=== PATIENT | female | born 1930 | race Caucasian/White ===

== ENCOUNTER → 2016-11-10 | Outpatient (CLI) | payer OTHER, MEDICARE | LOC: BHFA 14:00 | PROVIDERS: ATTEND Internal Medicine Cardiovascular Disease | DX: I67.9 Cerebrovascular disease, unspecified (principal); I34.0 Nonrheumatic mitral (valve) insufficiency; I50.9 Heart failure, unspecified ==

== ENCOUNTER 2016-11-25 16:00 | Inpatient (IN) | payer OTHER, MEDICARE ==
[~2016-11-25 16:00] MED LIST: IOPAMIDOL (ISOVUE 370) 100 ML BTL IV ONE
--- NOTE | 2016-11-25 17:20 | EDPHY ---
H & P Time Seen by Provider: 11/25/16 16:08 HPI/ROS: HPI Needs admission for carotid artery stenosis. 86-year-old female by private vehicle with daughter. Patient has a history of carotid artery stenosis. She also has a history of a meningioma. I received a call from glass curvature gauger Dr. Nguyen. He informed me that the patient had bilateral 90% stenosis of the carotid arteries and a meningioma causing shift/ masseffect. The patient is to be admitted to the [facility] care plan can be sufficiently coordinated between neuro surgery and vascular surgery. Dr. Murali Matta and neurosurgeon Dr. Dominguez are aware of this patient. ROS: Constitutional: No fever, no chills. No weakness. Eyes: No discharge. No changes in vision. ENT: No sore throat. No nasal congestion or rhinorrhea. Respiratory: No cough. No shortness of breath. Cardiac: No chest pain, no palpitations. Gastrointestinal: No abdominal pain, no vomiting, no diarrhea. Genitourinary: No hematuria. No dysuria or increased frequency with urination. Musculoskeletal: No back pain. No neck pain. No myalgias or arthralgias. Skin: No rashes. Neurological: No headache. No focal weakness or altered sensation. Past medical history: As above and includes cerebral vascular accident November of 2015 with mild residual weakness of the right quadriceps. Social history: She is initially from [place]. She is here with her daughter. [facility]. She ambulates with a walker. Physical Exam: General Appearance: Alert, no distress. This patient is responding to questions appropriately and in full sentences. This patient appears well- hydrated and well-nourished. Eyes: Pupils equal and round no pallor or injection. No lid edema, erythema or injection. Respiratory: There are no retractions, lungs are clear to auscultation with good air movement bilaterally. Cardiovascular: Regular rate and rhythm. No murmur. Gastrointestinal: Abdomen is soft and nontender, no masses, bowel sounds normal. No focal tenderness at McBurney's point. No Rhodes sign. Neurological: Motor sensory function is grossly intact and at baseline. Cranial nerves are normal. Skin: Warm and dry, no rashes. Musculoskeletal: Neck is supple and nontender. Extremities are symmetrical. All joints range without pain or impingement. Psychiatric: No agitation. No depression. Database: EKG: Imaging: Procedures: Emergency department course: 5:00 p.m., I spoke with hospitalist Dr. Payne. He is aware of the patient. He accepts the patient for admission. he has spoken with Dr. Nguyen about this patient. No further emergency department workup or diagnostic evaluation required at this time. 5:10 p.m., spoke with Dr. Oconnor of the Neurosurgery Service. He evaluated the patient in the emergency department. He will follow up with her as an outpatient for further management of her meningioma. 5:15 p.m., spoke with the patient and her daughter. Explained plan for admission and reasoning. All of their questions were answered. She was admitted in stable condition under the care of the hospitalist service. Differential Diagnosis: The differential diagnosis on this patient includes but is not limited to critical stenosis of the bilateral carotid arteries, chronic hemangioma. Acute cerebrovascular accident unlikely. This represents a partial list of diagnoses considered. These considerations are based on history, physical exam, past history, reassessment and diagnostic testing. Smoking Status: Former smoker Constitutional: Initial Vital Signs Temperature (C) 37.7 C 11/25/16 16:15 Heart Rate 76 11/25/16 16:15 Respiratory Rate 18 11/25/16 16:15 Blood Pressure 165/120 H 11/25/16 16:15 O2 Sat (%) 97 11/25/16 16:15 Allergies/Adverse Reactions: No Known Allergies Allergy (Unverified 11/25/16 16:49) Home Medications: Medication Instructions Recorded Acetaminophen [Tylenol ES 500 mg 1,000 mg PO Q8H PRN 11/25/16 (*)] Carvedilol [Carvedilol] 6.25 mg PO BID 11/25/16 Clopidogrel Bisulfate [Plavix (*)] 75 mg PO DAILY 11/25/16 Cyanocobalamin/FA/Pyridoxine 1 each PO DAILY 11/25/16 [Folbee Tablet] Donepezil HCl [Aricept] 10 mg PO HS 11/25/16 Estradiol [Estrace] 0.5 g VG TUFR 11/25/16 Furosemide [Furosemide] 40 mg PO DAILY 11/25/16 Mirtazapine [Remeron] 15 mg PO HS 11/25/16 Paroxetine HCl 30 mg PO DAILY 11/25/16 Potassium Chloride [Klor-Con 10] 10 meq PO DAILY 11/25/16 Pramipexole Di-HCl [Mirapex 0.125 0.125 mg PO HS 11/25/16 mg (*)] Pravastatin Sodium [Pravachol] 80 mg PO HS 11/25/16 Solifenacin Succinate [Vesicare] 10 mg PO DAILY 11/25/16 Departure - Departure Disposition: [facility] Acute Clinical Impression: Carotid artery stenosis, Meningioma
--- NOTE | 2016-11-25 17:40 | CT ---
CT Head With Contrast Indication: Incidentally noted mass on CT angiogram neck. Further evaluation. No priors for comparison. Technique: 5 mm axial images are performed from skull base to vertex without added intravenous contra st. There is contrast enhancement from what was already administered for CT angiogram neck, which was 85 mL of Isovue-370. Radiation dose reduction technique was utilized. Findings: There is a large dural based mass at the left frontotemporal region that measures 6 x 6 x 4 .2 cm, well-circumscribed, with surrounding enhancement. The center of this is also much more dense c ompared to the rest of the brain parenchyma. There is punctate calcification. At the inferior end of it, there is a small cystic lesion with surrounding enhancement that measures 18 mm. Could this repre sent cystic degeneration? Overall, there is no surrounding invasive features such as erosive changes into the skull. There is no stiffness skull thickening. Degeneration or a neoplastic transformation o f this lesion is thought to be less likely based on this imaging finding. There is a [id number] midline shift that measures 8.4 mm. There is a mild amount of surrounding ed tirso. There is increased vasculature along the posterior edge of this mass in the temporal region, chioma t I thought may represent congestion of venous flow. The paranasal sinuses are clear. Impression: 1. Large dural based mass at the left frontotemporal lobe as above described, 6 x 6 x 4.2 cm, with ce ntral calcification and a superior cystic component. Meningioma is primary differential. 2. 8.4 mm [id number] midline shift. 3. Small amount of surrounding edema. Findings were discussed with Dr. Jacob Alvarado. Patient was sent to emergency room at this time.
[2016-11-25] MEDS ORDERED: ACETAMINOPHEN 325 MG TAB PO PRN (18:06)
[2016-11-25] MEDS ORDERED: ONDANSETRON DISINTEGRATING 4 MG TAB PO PRN (18:06)
[2016-11-25] MEDS ORDERED: ONDANSETRON 4 MG/2 ML VIAL IVP PRN (18:06)
--- NOTE | 2016-11-25 18:08 | CT ---
CT Angiography of the Chest Clinical Indications: Known carotid stenosis. Technique: 1.25 mm thin axial images are performed from lung apex through base during intravenous con trast injection of 90 mL of Isovue-370. Coronal and parasagittal reformatted images are reviewed on P Fishidy workstation. Dose reduction techniques were utilized. Comparison: None. Findings: CT Angiogram of the Chest: There is no evidence for acute or chronic pulmonary embolic disease. Centr al pulmonary vasculature demonstrates normal contrast enhancement. No masses. Coronary calcifications , extensive, are present at the circumflex artery, LAD, and to a milder extent right coronary artery. The cardiac chambers are normal in size. There is a small pericardial effusion. CT Scan Chest: Lungs are clear. Heart and mediastinum are normal. There is no evidence for nodule or consolidation. No effusion. Visualized upper abdomen is normal. No adenopathy. There is moderate athe rosclerotic calcification of the visualized abdominal aorta. Impression: 1. Coronary calcifications, moderate. 2. No evidence for pulmonary embolic disease.
--- NOTE | 2016-11-25 18:13 | CT ---
CT Angiography of the Neck (With Contrast) Clinical Indications: Evaluation of carotid stenosis. Technique: During IV administration of 85 mL of Isovue-370 intravenously, helical multidetector data acquisition was obtained from the upper thorax cephalad through the skull base. The thinly collimate d data were manipulated in multiple projections on the 3D computer workstation by the radiologist for a more thorough evaluation. Appropriate images were stored on PACS. Dose reduction techniques were utilized. Findings: There is significant atherosclerotic disease in the visualized abdominal aorta. There is mi ld atherosclerotic disease of the thoracic arch, and proximal descending thoracic aorta. Ascending th oracic aorta is normal in size at 3.6 cm. The great vessels takeoff of aorta normally without anatomic variations. No origin stenosis or athero sclerotic disease. Patient has codominant vertebral arteries, both of which originate from subclavian arteries normally without stenosis. The carotid arteries in the cervical portion are normal until they hit the bifurcation. On the left, there is approximately 90% stenosis of the proximal internal carotid artery. On the right, there is a pproximately 95% stenosis of the proximal internal carotid artery. Both are caused by chunky circumfe rential atherosclerotic calcification. Upstream from that, both internal carotid arteries are tortuous. The right side measures 4 mm. The le ft side measures 5 mm. Cavernous portions of the carotid arteries are within normal limits. Patient has a patent posterior c ommunicating artery on the left, but none is seen on the right. The cervical vertebral arteries are normal without stenosis or dissection. At the skull base, both ar e moderately atherosclerotic, with 80% luminal stenosis focally at the skull base, level of C1. They continue with in-line flow to a normal-sized basilar artery. Impression: 1. 90% right carotid stenosis at the base of the internal carotid artery. 2. 95% left proximal internal carotid artery stenosis. 3. 80% bilateral vertebral artery stenosis at C1. 4. All stenoses are caused by atherosclerotic calcification. 5. Patent P-comm on the left, none on the right. Considering the multifocal stenoses, this patient is at high risk for stroke. Findings were discussed with Dr. Jacob Alvarado. Note: All stenoses are calculated using NASCET Criteria.
--- NOTE | 2016-11-25 18:19 | GCON ---
[f rep st] CONSULTATION ER CONSULTATION NOTE DATE OF CONSULTATION: 11/25/2016 REASON FOR CONSULTATION: Left 7 cm frontal meningioma. HISTORY OF PRESENT ILLNESS: The patient is an 86-year-old woman, who is accompanied by her daughter who is a retired [employer] physician. She recently moved from [place] to [place] and has a known history of a left frontal meningioma, for which she is followed by Neurosurgery in [place], [place]. She also has known history of carotid stenosis. The patient also had some difficulties with CHF and was undergoing a routine echocardiogram of her heart, as well as bilateral carotid evaluation and was found to have increasing stenosis based on a recent ultrasound. She was directed to the emergency department for further evaluation and management. On her imaging studies, she was found to have a 7 cm frontal meningioma on the left side with approximately 1 cm midline shift. A neurosurgical consultation was requested secondary to this new lesion. The patient is currently being admitted to the medical service under the care of Dr. Scott Payne. According to the family, she has not previously been recommended to have any type of surgical intervention for this given her cardiac and carotid history. She recently suffered a TIA/stroke back in November of 2015, from which she has a little bit of residual right-sided quad weakness. She denies any new focal upper or lower extremity weakness. She has been having some increasing difficulty with her memory according to the daughter and some increasing nighttime spasms of the right lower extremity, for which she is on medication. Other than that, she denies any headaches. No new visual symptoms. REVIEW OF SYSTEMS: A complete 10-point review of systems from the patient's intake form reviewed by myself and significant only for those noted above in the HPI. PAST MEDICAL HISTORY: 1. Cerebrovascular accident in November of 2015 with ongoing right-sided residual quadriceps weakness. 2. History of carotid stenosis bilaterally. 3. History of congestive heart failure, for which she is currently being treated medically. 4. History of left frontal meningioma with known midline shift of 3 mm. SOCIAL HISTORY: The patient ambulates with a walker and currently lives in [facility] here in [place]. She is accompanied by her daughter. She originally lived in [place] and recently moved to [place]. FAMILY HISTORY: Significant for a triple A in her mother and bilateral carotid stenosis in her father. SURGICAL HISTORY: She has had bilateral cataract surgery. ALLERGIES: No known drug allergies. MEDICATIONS: 1. Carvedilol 25 mg p.o. b.i.d. 2. Plavix 75 mg p.o. daily. 3. Aricept 5 mg p.o. q.h.s. 4. Mirtazapine 45 mg p.o. daily. 5. Paxil 10 mg p.o. daily. 6. Pravachol 10 mg p.o. daily. 7. VESIcare. 8. CoQ10 200 mg p.o. daily. PHYSICAL EXAMINATION: VITAL SIGNS: Temperature is 37.7, heart rate is 76, respiratory rate is 18, blood pressure is 165/120. She is satting 97% currently on room air. GENERAL: The patient is lying in the bed and she is no acute distress. She is quite pleasant and cooperative with the examination. Affect appears appropriate. HEENT: Head is atraumatic, normocephalic. Pupils are equally round and reactive to light bilaterally. Extraocular movements are intact. Oropharynx is moist. CARDIOVASCULAR AND PULMONARY: Deferred. NEUROLOGIC: She has 5/5 strength with bilateral licensed esthetician strength biceps, triceps, deltoid, left hip flexor, bilateral knee flexion and extension, plantar dorsiflexion, and extensor hallucis longus with 4+ out of 5 right hip flexor. Sensory: She has intact sensation to light touch throughout all major dermatomes of the bilateral upper and lower extremities throughout. Other: She has no Lindsey's, no Babinski, and 1+ reflexes at the bilateral brachioradialis and patellae. Cranial nerves 2-12 are intact. Face is symmetric. Tongue is midline. Tongue protrudes midline. Uvula and palate elevate symmetrically. She has intact sensation to light touch on her face bilaterally. She has intact hearing to light finger scratch bilaterally and shoulder shrug is symmetric. Pupils are equally round and reactive to light bilaterally. MEDICAL DECISION-MAKING: Patient underwent a head CT without contrast, which was reviewed by myself on the [facility] PACS system. There is evidence of a 7 cm left frontal meningioma with approximately 9 mm midline shift from left to right. There are expected diffuse schmitt and white matter changes consistent with an 86-year-old. No skull fractures. No other intracranial abnormalities. ASSESSMENT AND PLAN: This is an 86-year-old woman with a known history of left frontal 7 cm meningioma. I had an extensive discussion with the patient and her daughter. She has a history of congestive heart failure with known greater than 90% critical bilateral carotid stenoses, for which she is going to be seen by Dr. Matta of the Vascular service. The family has not been recommended type of surgical intervention in the past. They report that she has had 3 mm of midline shift in the past; however, my measurement today is 9 mm which did express to the family was somewhat concerning if she has had this much growth in 1 year. At this point, there is no urgent surgical indication; however, given the progressive midline shift I would like to obtain the old outside records and have the patient follow up with me as an outpatient. There is some concern as to whether or not the patient is developing right-sided weakness secondary to the lesion. However, at this point given again, the other medical conditions, which I think are more pressing, we will wait on any type of recommendations for this and do not feel that she requires any type of urgent surgical intervention while she is in the hospital during this admission. Will plan to see the patient in the morning and will likely have her follow up as an outpatient. All of the family's questions were answered in the ER today. This was also discussed with the ER physician and Dr. Matta, who were present. /[id number]/MODL MTDD
[2016-11-25] MEDS ORDERED: oxyCODONE IR 5 MG TAB PO PRN (18:50)
--- NOTE | 2016-11-25 18:55 | PDGENHP ---
History and Physical - Chief Complaint Severe carotid artery stenosis - History of Present Illness PCP: Dr. Guerra Primary dietetic technician registered Dr. Alvarado HPI: 86-year-old female presenting from the Imaging Department after her dietetic technician registered was contacted for severe carotid artery stenosis as well as large left-sided meningioma with midline shift. The patient reports that she experiences chronic paresis located in her right upper and lower extremity, which she has been experiencing after reported CVA in 2005. The symptoms have not recently worsened. She does have some acute hoarseness which she characterizes as focal changes with onset of symptoms on the day of presentation without any associated cough, sore throat, sinus congestion, fever , chills. She does report that she has some associated, chronic pain located in her right knee, exacerbated with ambulation, alleviated with 1000 mg of Tylenol q.8 hours. History Information - Allergies/Home Medication List Allergies/Adverse Reactions: No Known Allergies Allergy (Unverified 11/25/16 16:49) Home Medications: Acetaminophen [Tylenol ES 500 mg (*)] 1,000 mg PO Q8H PRN 11/25/16 [Last Taken Unknown] Carvedilol [Carvedilol] 6.25 mg PO BID 11/25/16 [Last Taken 11/25/16] Clopidogrel Bisulfate [Plavix (*)] 75 mg PO DAILY 11/25/16 [Last Taken 11/25/16] Cyanocobalamin/FA/Pyridoxine [Folbee Tablet] 1 each PO DAILY 11/25/16 [Last Taken Unknown] Donepezil HCl [Aricept] 10 mg PO HS 11/25/16 [Last Taken Unknown] Estradiol [Estrace] 0.5 g [facility] 11/25/16 [Last Taken 11/24/16] Furosemide [Furosemide] 40 mg PO DAILY 11/25/16 [Last Taken 11/25/16] Mirtazapine [Remeron] 15 mg PO HS 11/25/16 [Last Taken Unknown] Paroxetine HCl 30 mg PO DAILY 11/25/16 [Last Taken 11/25/16] Potassium Chloride [Klor-Con 10] 10 meq PO DAILY 11/25/16 [Last Taken 11/25/16] Pramipexole Di-HCl [Mirapex 0.125 mg (*)] 0.125 mg PO HS 11/25/16 [Last Taken Unknown] Pravastatin Sodium [Pravachol] 80 mg PO HS 11/25/16 [Last Taken Unknown] Solifenacin Succinate [Vesicare] 10 mg PO DAILY 11/25/16 [Last Taken Unknown] I have personally reviewed and updated: family history, medical history, social history, surgical history - Past Medical History CVA (Reportedly in 2005 with some right-sided residual paresis) Additional medical history: Frequent PACs. Cognitive impairment. Moderate mitral regurgitation with a normal ejection fraction. Chronic meningioma on the left, evaluated by Neurology and Neurosurgery back in her home city of [place] - Surgical History Reports: no pertinent surgical hx - Family History Additional family history: No recent sick family contacts - Social History Smoking Status: Former smoker Alcohol Use: None Drug Use: None Additional social history: Reports that she is normally ambulatory with use of walker and is able to ambulate without any chest pain or shortness of breath Review of Systems ROS: 10pt was reviewed & negative except for what was stated in HPI & below EENMT: Reports: other (Hoarseness) Muscolosketal: Reports: joint pain (Right knee) Neurological: Reports: weakness (Right side) Physical Exam Temp Pulse Resp BP Pulse Ox 37.4 C 84 18 145/77 H 94 11/25/16 17:55 11/25/16 17:55 11/25/16 17:55 11/25/16 17:55 11/25/16 17:55 Constitutional: no apparent distress, appears nourished, not in pain, No chronically ill appearing Eyes: PERRL, anicteric sclera, EOMI Ears, Nose, Mouth, Throat: moist mucous membranes, hearing normal, ears appear normal, no oral mucosal ulcers Cardiovascular: irregularly irregular, carotid bruit (Bilateral), tachycardia, No systolic murmur, No JVD, No edema Respiratory: no respiratory distress, no rales or rhonchi, clear to auscultation Gastrointestinal: normoactive bowel sounds, soft, non-tender abdomen, no palpable masses Musculoskeletal: other (Tenderness over the right knee without joint effusion, no overt crepitus) Neurologic: AAOx3, sensation intact bilaterally, weakness (Right upper extremity 4/5 motor strength), facial droop (Left mouth pulse), other (Left tongue deviation) Psychiatric: interacting appropriately, not anxious, not encephalopathic, thought process linear, other (Concentration 04/30) Lab Data & Imaging Review Visualized and Interpreted imaging results: Yes Interpretation: Head CT demonstrating 5.8 cm x 6.1 cm left-sided meningioma with midline shift Assessment & Plan Assessment: 86-year-old female presenting with severe bilateral carotid stenosis complicated by large left-sided meningioma with midline shift Plan: 1. Severe carotid stenosis. Acute, new problem this provider, further workup indicated. Discussed with , he has reported to me that the patient has bilateral 90% stenosis and she is undergoing CT angiography today -Dr. Matta has consulted on the patient and given patient's severe bilateral carotid stenosis confirmed on CT angiogram, he would recommend proceeding with CEA, staged with 1 side at a time -per Dr. Matta, patient shall be risk stratified from a cardiovascular standpoint to ensure that she is safe to undergo surgery and she will have a Lexiscan stress test performed in the a.m. -pending patient's stress test results as well as OR schedule for CEA, patient may be able to be discharged home tomorrow with a plan for scheduled end arterectomy surgery versus proceeding urgently to endarterectomy surgery over the next 24-48 hours, please follow up with Dr. Matta in a.m. 2. Meningioma. A large, chronic, evidence of midline shift -consultation by Dr. Oconnor appreciated, he has recommended that patient not undergo surgery for this issue given her high risk of complications as well as chronic nature -outside records ordered and patient's daughter to provide previous head imaging results for comparison -neurosurgery has recommended that the patient follow up with them as an outpatient 3. Tachyarrhythmia. Acute, new problem this provider, further workup indicated. Patient's physical exam reveals irregular heart rhythm with tachycardia, suspicious for atrial fibrillation -patient has a history of PACs -place patient on telemetry, get EKG -continue patient's home dosage of beta-maritza 4. Hoarseness. Acute, unclear etiology, continue to monitor -lozenges p.r.n. Diet. Cardiac, NPO in a.m. Prophylaxis. High risk patient, pharmacologic contraindicated given possible surgery, SCDs Code. Full per patient, her daughter is her MPOA Disposition. Anticipated discharge is 11/26/2016, pending further workup as outlined above. If patient requires urgent cardiovascular surgery, patient will be upgraded to inpatient admission status for such surgery.
[2016-11-25] MEDS ORDERED: CEPACOL LOZENGE PO PRN (19:04)
--- NOTE | 2016-11-25 19:08 | CPEKG ---
Heart Rate: 92 RR Interval: 652 P-R Interval: 144 QRSD Interval: 142 QT Interval: 432 QTC Interval: 535 P [place]: 102 QRS [place]: -51 T Wave [place]: 123 EKG Severity - ABNORMAL ECG - EKG Impression: SINUS RHYTHM EKG Impression: PAIRED VENTRICULAR PREMATURE COMPLEXES EKG Impression: RIGHT BUNDLE BRANCH BLOCK EKG Impression: LVH WITH IVCD AND SECONDARY REPOL ABNRM Electronically Signed By: Kym Padilla 26-Nov-2016 08:42:58
[2016-11-25] MEDS: CARVEDILOL 6.25 MG TAB PO SCH (20:34)
[2016-11-25] MEDS: PRAVASTATIN SODIUM 40 MG TAB PO SCH (20:34)
[2016-11-25] MEDS: DONEPEZIL HCL 5 MG TAB PO SCH (20:35)
[2016-11-25] MEDS: MIRTAZAPINE 15 MG TAB PO SCH (20:35)
--- NOTE | 2016-11-25 20:39 | SOAPPROG ---
KARSTEN Progress Note Assessment/Plan: Assessment: 86 FEMALE WITH SEVERE BILAT CAROTID STENOSES> 90% WITH HX OF PRIOR CVA, MOSTLY RESOLVED ALSO CHRONIC LARGE MENINGIOMA ADMITTED FOR EVAL AND CARDIAC STRESS TEST RISKS AND OPTIONS FULLY DISCUSSED Plan: WILL NEED BILAT CEAs MINERVA AFTER CARDIAC AND MED EVAL 11/25/16 20:36 Objective: Vital Signs Temp Pulse Resp BP Pulse Ox 36.6 C 55 L 17 150/86 H 92 11/25/16 19:28 11/25/16 19:28 11/25/16 19:28 11/25/16 19:28 11/25/16 19:28 ICD10 Worksheet Patient Problems: Problems Problem Status Diagnosed Carotid artery stenosis Acute Meningioma Acute
[2016-11-25] MEDS ORDERED: NON-FORMULARY NEW DRUG (Pravastatin Sodium [Pravachol] 80 MG) PO SCH (21:00)
[2016-11-25] MEDS ORDERED: NON-FORMULARY NEW DRUG (Mirtazapine [Remeron] 15 MG) PO SCH (21:00)
[2016-11-25] MEDS ORDERED: NON-FORMULARY NEW DRUG (Donepezil Hcl [Aricept] 10 MG) PO SCH (21:00)
[2016-11-25] MEDS: PRAMIPEXOLE 0.125 MG TAB PO SCH (21:17)
[2016-11-26 05:29] LABS: % IMMATURE GRANULYOCYTES 0.3 % (0.0-1.1); ABSOLUTE IMMATURE GRANULOCYTES 0.04 10^3/uL (0.00-0.10); ADD DIFF? NO; ADD MORPH? NO; ADD SCAN? NO; ATYPICAL LYMPHOCYTE FLAG 0 (0-99); FRAGMENT RBC FLAG 0 (0-99); HEMATOCRIT 35.4 % (38.0-47.0); LEFT SHIFT FLG 10 (0-99); LIPEMIA HEMOLYSIS FLAG 90 (0-99); MEAN CELL HEMOGLOBIN CONCENTR. 33.9 g/dL (32.4-36.7); MEAN CELL VOLUME 94.4 fL (81.5-99.8); MEAN PLATELET VOLUME 11.4 fL (8.7-11.7); PLATELET CLUMPS FLAG 10 (0-99); PLATELET COUNT 255 10^3/uL (150-400); RED BLOOD CELL COUNT 3.75 10^6/uL (4.18-5.33); RED CELL DISTRIBUTION WIDTH 13.9 % (11.5-15.2)
[2016-11-26 05:41] LABS: INR 1.13 (0.83-1.16); PROTIME(PATIENT) 14.4 SEC (12.0-15.0)
[2016-11-26 05:56] LABS: ANION GAP 10 mEq/L (8-16); CARBON DIOXIDE 22 mEq/l (22-31); CHLORIDE 107 mEq/L (97-110); CREATININE 0.8 mg/dL (0.6-1.0); GLOMERULAR FILTRATION RATE > 60; GLUCOSE 105 mg/dL (70-100); SODIUM 139 mEq/L (134-144)
[2016-11-26] MEDS ORDERED: NON-FORMULARY NEW DRUG (Solifenacin Succinate [Vesicare] 10 MG) PO SCH (09:00)
[2016-11-26] MEDS ORDERED: [UNRECOGNIZED DRUG - OTHER] PO SCH (09:00)
[2016-11-26] MEDS ORDERED: CYANOCOBALAMIN PO SCH (09:00)
[2016-11-26] MEDS ORDERED: PYRIDOXINE PO SCH (09:00)
[2016-11-26] MEDS ORDERED: REGADENOSON 0.4 MG/5 ML SYR IVP ONE (09:15)
--- NOTE | 2016-11-26 10:16 | SOAPPROG ---
SOAP Progress Note Assessment/Plan: Assessment: 86yo with B/L carotid stenosis awake alert Plan: seen by Dr Matta surgery in next 1-2 days when cleared by Cards, medicine and schedule permits, discussed with patient 11/26/16 10:15 Objective: Vital Signs Temp Pulse Resp BP Pulse Ox 37.1 C 89 20 109/60 91 L 11/26/16 07:44 11/26/16 07:44 11/26/16 07:44 11/26/16 07:44 11/26/16 07:44 Laboratory Results 11/26/16 04:20 11/26/16 04:20 11/25/16 11/26/16 11/27/16 05:59 05:59 05:59 Intake Total 300 Balance 300 PT 14.4 SEC (12.0-15.0) 11/26/16 04:20 INR 1.13 (0.83-1.16) 11/26/16 04:20 ICD10 Worksheet Patient Problems: Problems Problem Status Diagnosed Carotid artery stenosis Acute Meningioma Acute
--- NOTE | 2016-11-26 10:23 | NEUSURGPN ---
Assessment/Plan: 87F with multiple medical comorbidities including carotid stenosis, CHF with a large 7cm meningioma with midline shift. -Recommend patient follow up with neurosurgery as an outpatient in 2-3weeks -Continue Q4 hour neuro checks while in house. -Please notify NS with any change in neuro/motor exam Subjective: Denies any headache, nausea, dizziness Objective: NAD A&Ox3 CN II-XII grossly intact. EOMI. MAEx4 / and equal in BUE and BLE - Physician Discussed Patient with : [facility] Physical Exam - Vitals, I&O, Labs I and O 11/25/16 11/26/16 11/27/16 05:59 05:59 05:59 Intake Total 300 Balance 300 Weight 67.3 kg Intake: Oral (ml) 300 Other: Intake Quantity Yes Sufficient Number of Voids Toilet 2 Vital Signs Temp Pulse Resp BP Pulse Ox 37.1 C 89 20 109/60 91 L 11/26/16 07:44 11/26/16 07:44 11/26/16 07:44 11/26/16 07:44 11/26/16 07:44 Laboratory Results 11/26/16 04:20 11/26/16 04:20 ICD10 Worksheet Patient Problems: Problems Problem Status Diagnosed Carotid artery stenosis Acute Meningioma Acute
[2016-11-26] MEDS: ACETAMINOPHEN 500 MG TAB PO PRN (10:44)
[2016-11-26] MEDS: CYANOCOBALAMIN/FA/PYRIDOXINE 1 EACH TAB PO SCH (10:45)
[2016-11-26] MEDS: SOLIFENACIN SUCCINATE 5 MG TAB PO SCH (10:45)
[2016-11-26] MEDS: CARVEDILOL 6.25 MG TAB PO SCH ×2 (10:46→19:37)
--- NOTE | 2016-11-26 10:47 | NM ---
Nuclear Medicine Myocardial Perfusion Scan Clinical History: 86-year-old female with a history of carotid stenosis, anticipating surgery. Evalua te for myocardial ischemia Radiopharmaceutical: 10.8 mCi of IV technetium 99m sestamibi (rest); 24.4 mCi of IV sestamibi (stress ). Medical Pharmaceutical: 0.4 mg of IV Lexiscan. Technique: After the respective rest and stress sequences, images were acquired tomographically and r econstructed along the standard cardiac axes. An attempt was made to gate this study, however the jeb ority the beats were rejected and a true gating study was therefore not acquired. Images are reviewed on the PACS system using [employer] [facility] software. Comparison Study: None. Findings: The post-stress sequences demonstrate relatively homogeneous perfusion of the left ventricl e, with no reversible filling defect to suggest ischemia, or fixed filling defect to suggest fibrosis . The left ventricular cavity size is normal. The study was not gated, and a computer-generated LVEF was not calculated. Impression: There is no scintigraphic evidence of myocardial ischemia.
--- NOTE | 2016-11-26 13:27 | CPR ---
[f rep st] NONINVASIVE CARDIAC PROCEDURE REPORT DATE OF PROCEDURE: 11/26/2016 PROCEDURE: Lexiscan nuclear stress test. INDICATION: The patient has multiple atrial and ventricular ectopy. This stress test was ordered fo r preop clearance. DESCRIPTION OF PROCEDURE: Consent was obtained and the patient was placed on continuous telemetry. Her resting EKG revealed normal sinus rhythm with ventricular bigeminy. 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 The patient was infused with Lexiscan and complained o f flushing and abdominal discomfort. Her atrial and ventricular ectopy increased with the infusion. She had multiple ventricular couplets as well as atrial runs throughout the study. Her blood pressu re at rest was 138/60 and it decreased with the infusion. Three minutes into the recovery her blood pressure had recovered. Her symptoms of abdominal discomfort improved within 3 minutes of recovery. PLAN: Await nuclear images. /[id number]/MODL
--- NOTE | 2016-11-26 13:57 | PDCARPN ---
Cardiology Progress Note Assessment/Plan: 86-year-old female followed by Dr. Alvarado in our group. Has bilateral carotid disease. Admitted to the hospital after a CT angiogram demonstrated critical stenoses bilaterally. Surgical consultation obtained. Has a history of hypertension, moderate mitral regurgitation, and chronic diastolic CHF but no history of CAD or myocardial infarction. Underwent a pharmacologic nuclear stress test earlier today. Nuclear perfusion images were normal without evidence for ischemia or infarction. At this point it appears that there is no evidence for significantly increased risk of major adverse perioperative cardiac event. She demonstrates frequent PACs on telemetry. Would monitor closely for postoperative atrial fibrillation which would not be surprising. 11/26/16 13:54 Subjective: No complaints. Objective: Vital Signs (8 Hrs) Temp Pulse Resp BP Pulse Ox 11/26/16 12:45 36.9 C 80 14 126/87 H 92 11/26/16 10:46 89 109/60 11/26/16 07:44 37.1 C 89 20 109/60 91 L Intake/Output (24 Hrs) 11/25/16 11/26/16 11/27/16 05:59 05:59 05:59 Intake Total 300 Balance 300 Intake: Oral (ml) 300 Other: Weight 67.3 kg Intake Quantity Yes Sufficient Number of Voids Toilet 2 Result Diagrams: 11/26/16 04:20 11/26/16 04:20 - Physical Exam Constitutional: no apparent distress Eyes: anicteric sclera Ears, Nose, Mouth, Throat: moist mucous membranes Cardiovascular: regular rate and rhythm Respiratory: clear to auscultate bilat Gastrointestinal: normoactive bowel sounds, no tenderness, no masses Skin: no rashes, no edema Psychiatric: not anxious ICD10 Worksheet Patient Problems: Problems Problem Status Diagnosed Carotid artery stenosis Acute Meningioma Acute
--- NOTE | 2016-11-26 15:20 | HOSPPROG ---
Hospitalist Progress Note Assessment/Plan: # Severe carotid stenosis- Acute- CTA (personally reviewed and interpreted) shows bilateral 90% stenosis - cardic stress test ordered for today - plan for bilateral CEA # Meningioma- chronic A large, chronic, evidence of more dramatic midline shift -consultation by Dr. Oconnor appreciated - patient and family not interested in any interventions # Tachyarrhythmia- Acute TELE (personally reviewed and interpreted) sinus with PAC's- creatinine and potassium normal oxygen saturations 95% on RA -cont telemetry -continue patient's home dosage of beta-maritza # Diet. Cardiac # Prophylaxis. High risk patient, pharmacologic contraindicated given possible surgery, SCDs #Code. Full per patient, her daughter is her MPOA # disposition - > 2MN as pt requires work up for anticipated surgical intervention I have discussed the case with surgery - pending results of stress test anticipate surgery in the next 48 hours Subjective: denies chest pain Objective: Vital Signs Temp Pulse Resp BP Pulse Ox 36.9 C 80 14 126/87 H 92 11/26/16 12:45 11/26/16 12:45 11/26/16 12:45 11/26/16 12:45 11/26/16 12:45 Laboratory Results 11/26/16 04:20 11/26/16 04:20 11/25/16 11/26/16 11/27/16 05:59 05:59 05:59 Intake Total 300 Balance 300 PT 14.4 SEC (12.0-15.0) 11/26/16 04:20 INR 1.13 (0.83-1.16) 11/26/16 04:20 - Physical Exam Constitutional: chronically ill appearing Eyes: anicteric sclera Ears, Nose, Mouth, Throat: moist mucous membranes Cardiovascular: regular rate and rhythym, systolic murmur Respiratory: no respiratory distress Gastrointestinal: normoactive bowel sounds, soft, non-tender abdomen Genitourinary: no bladder fullness Skin: warm, normal color Musculoskeletal: No asymmetric calves Neurologic: AAOx3, facial droop Psychiatric: interacting appropriately, not anxious Lymph, Heme, Immunologic: no cervical LAD ICD10 Worksheet Patient Problems: Problems Problem Status Diagnosed Carotid artery stenosis Acute Meningioma Acute
--- NOTE | 2016-11-26 19:16 | SOAPPROG ---
SOAP Progress Note Assessment/Plan: Assessment: 86yo with B/L carotid stenosis awake alert Plan: seen by Dr Matta surgery in next 1-2 days when cleared by Cards, medicine and schedule permits, discussed with patient 11/26/16 10:15 11/26/16 19:16 Surgery planned for Wednesday morning if cleared by medicine, CARDS. Objective: Vital Signs Temp Pulse Resp BP Pulse Ox 37.1 C 55 L 20 102/44 L 91 L 11/26/16 15:57 11/26/16 15:57 11/26/16 15:57 11/26/16 15:57 11/26/16 15:57 11/25/16 11/26/16 11/27/16 05:59 05:59 05:59 Intake Total 650 Balance 650 PT 14.4 SEC (12.0-15.0) 11/26/16 04:20 INR 1.13 (0.83-1.16) 11/26/16 04:20 ICD10 Worksheet Patient Problems: Problems Problem Status Diagnosed Carotid artery stenosis Acute Meningioma Acute
[2016-11-26] MEDS: MIRTAZAPINE 15 MG TAB PO SCH (19:37)
[2016-11-26] MEDS: DONEPEZIL HCL 5 MG TAB PO SCH (19:37)
[2016-11-26] MEDS: PRAMIPEXOLE 0.125 MG TAB PO SCH (19:38)
[2016-11-26] MEDS: PRAVASTATIN SODIUM 40 MG TAB PO SCH (19:38)
[2016-11-27] MEDS: SOLIFENACIN SUCCINATE 5 MG TAB PO SCH (10:34)
[2016-11-27] MEDS: CYANOCOBALAMIN/FA/PYRIDOXINE 1 EACH TAB PO SCH (10:35)
[2016-11-27] MEDS: ACETAMINOPHEN 500 MG TAB PO PRN (10:35)
[2016-11-27] MEDS: CARVEDILOL 6.25 MG TAB PO SCH ×2 (10:36→22:04)
--- NOTE | 2016-11-27 13:13 | HOSPPROG ---
Hospitalist Progress Note Assessment/Plan: # Severe carotid stenosis- Acute- CTA - shows bilateral 90% stenosis CT chest ( personally reviewed and interpreted) no infiltrates cardiac calcifications noted by Radiology myocardial perfusion scan( reviewed) no inducible ischemia - plan for bilateral CEA - 1st phase tomorrow morning - NPO for OR # Meningioma- chronic A large, chronic, evidence of more dramatic midline shift -consultation by Dr. Oconnor appreciated - patient and family not interested in any interventions # Tachyarrhythmia- Acute TELE (personally reviewed and interpreted) sinus with PAC's- creatinine and potassium normal oxygen saturations 91% on RA -cont telemetry -continue patient's home dosage of beta-maritza # history of CVA with remnant deficits- continue holding Plavix for OR tomorrow # Diet. Cardiac- NPO after midnight # Prophylaxis. High risk patient, pharmacologic contraindicated given possible surgery, SCDs #Code. Full per patient, her daughter is her MPOA # disposition - > 2MN as pt requires work up for anticipated surgical intervention I have discussed the case with Dr. Matta- plan for operating room tomorrow morning for 1st carotid intervention Subjective: denies chest pain Objective: Vital Signs Temp Pulse Resp BP Pulse Ox 38.0 C 89 19 125/70 H 91 L 11/27/16 11:42 11/27/16 11:42 11/27/16 11:42 11/27/16 11:42 11/27/16 11:42 11/26/16 11/27/16 11/28/16 05:59 05:59 05:59 Intake Total 850 Balance 850 PT 14.4 SEC (12.0-15.0) 11/26/16 04:20 INR 1.13 (0.83-1.16) 11/26/16 04:20 - Physical Exam Constitutional: chronically ill appearing Eyes: anicteric sclera Ears, Nose, Mouth, Throat: moist mucous membranes Cardiovascular: regular rate and rhythym, systolic murmur Respiratory: no respiratory distress, no rales or rhonchi Gastrointestinal: normoactive bowel sounds, soft, non-tender abdomen Genitourinary: No no bladder fullness Skin: warm, normal color Musculoskeletal: No asymmetric calves Neurologic: AAOx3, facial droop Psychiatric: interacting appropriately, not anxious Lymph, Heme, Immunologic: no cervical LAD ICD10 Worksheet Patient Problems: Problems Problem Status Diagnosed Carotid artery stenosis Acute Meningioma Acute
[2016-11-27] MEDS ORDERED: Herbals/Supplements -Info Only PO SCH (15:00)
[2016-11-27] MEDS ORDERED: UBIQUINOL 100 MG PO SCH (15:00)
--- NOTE | 2016-11-27 15:03 | SOAPPROG ---
SOAP Progress Note Assessment/Plan: Assessment: 86yo with B/L carotid stenosis awake alert Plan: seen by Dr Matta surgery in next 1-2 days when cleared by Cards, medicine and schedule permits, discussed with patient 11/26/16 10:15 11/26/16 19:16 Surgery planned for Wednesday morning if cleared by medicine, CARDS. 11/27/16 15:[address] Matta in AM. Surgery planned for Wednesday consent in chart NPO tonight antibiotics ordered will discuss with daughter who is welcome to phone me, will stop by if time permits. Objective: Vital Signs Temp Pulse Resp BP Pulse Ox 38.0 C 89 19 125/70 H 91 L 11/27/16 11:42 11/27/16 11:42 11/27/16 11:42 11/27/16 11:42 11/27/16 11:42 11/26/16 11/27/16 11/28/16 05:59 05:59 05:59 Intake Total 850 Balance 850 PT 14.4 SEC (12.0-15.0) 11/26/16 04:20 INR 1.13 (0.83-1.16) 11/26/16 04:20 ICD10 Worksheet Patient Problems: Problems Problem Status Diagnosed Carotid artery stenosis Acute Meningioma Acute
[2016-11-27] MEDS: UBIQUINOL 100 MG PO SCH (17:38)
[2016-11-27] MEDS: PRAMIPEXOLE 0.125 MG TAB PO SCH (22:03)
[2016-11-27] MEDS: DONEPEZIL HCL 5 MG TAB PO SCH (22:04)
[2016-11-27] MEDS: MIRTAZAPINE 15 MG TAB PO SCH (22:04)
[2016-11-27] MEDS: PRAVASTATIN SODIUM 40 MG TAB PO SCH (22:04)
[2016-11-28] MEDS ORDERED: SKIN ADHESIVE (DERMABOND) 1 EACH TP ONE (07:45)
[2016-11-28] MEDS ORDERED: THROMBIN (RECOMBINANT) 20,000 UNIT SPRAY TP ONE (07:45)
[2016-11-28] MEDS ORDERED: BUPIVACAINE 0.5% 30 ML SDV ONE (07:46)
[2016-11-28] MEDS ORDERED: PROTAMINE SULFATE 50 MG/5 ML VIAL IVP ONE (07:46)
[2016-11-28] MEDS ORDERED: ceFAZolin 2 GM/DEXTROSE 100 ML IV ONE (08:00)
[2016-11-28] MEDS ORDERED: CEFAZOLIN 2 GM/DEXTROSE/100 ML BAG IV ONE (08:17)
--- NOTE | 2016-11-28 08:39 | SOAPPROG ---
KARSTEN Progress Note Assessment/Plan: Assessment: 86 FEMALE WITH SEVERE BILAT CAROTID STENOSES> 90% WITH HX OF PRIOR CVA, MOSTLY RESOLVED ALSO CHRONIC LARGE MENINGIOMA ADMITTED FOR EVAL AND CARDIAC STRESS TEST RISKS AND OPTIONS FULLY DISCUSSED Plan: WILL NEED BILAT CEAs MINERVA AFTER CARDIAC AND MED EVAL 11/25/16 20:36 11/28/16 08:37 SURGICAL RISKS AND OPTIONS FULLY DISCUSSED AND SHE AND DAUGHTER WISH TO PROCEED / WE WILL START WITH LEFT SIDE Objective: Vital Signs Temp Pulse Resp BP Pulse Ox 37.2 C 83 18 139/53 H 96 11/28/16 04:00 11/28/16 04:00 11/28/16 04:00 11/28/16 04:00 11/28/16 04:00 11/27/16 11/28/16 11/29/16 05:59 05:59 05:59 Intake Total 850 1200 Balance 850 1200 PT 14.4 SEC (12.0-15.0) 11/26/16 04:20 INR 1.13 (0.83-1.16) 11/26/16 04:20 ICD10 Worksheet Patient Problems: Problems Problem Status Diagnosed Carotid artery stenosis Acute Meningioma Acute
[2016-11-28] MEDS ORDERED: MIDAZOLAM 2 MG/2 ML VIAL ONE (10:06)
[2016-11-28] MEDS ORDERED: GLYCOPYRROLATE 0.2 MG/1 ML VIAL ONE (10:07)
[2016-11-28] MEDS ORDERED: ROCURONIUM 50 MG/5 ML VIAL ONE (10:08)
[2016-11-28] MEDS ORDERED: LIDOCAINE 2% 5 ML SDV ONE ×2 (10:08→10:13)
[2016-11-28] MEDS ORDERED: PROPOFOL 200 MG/20 ML VIAL ONE (10:09)
[2016-11-28] MEDS ORDERED: fentaNYL 100 MCG/2 ML INJ ONE (10:09)
[2016-11-28] MEDS ORDERED: LIDOCAINE 2% 100 MG/5 ML SYR IVP ONE (10:10)
[2016-11-28] MEDS ORDERED: HEPARIN 10,000 UNIT/10 ML MDV ONE (10:11)
[2016-11-28] MEDS ORDERED: PROPOFOL/EMULSION 500 MG/50 ML BOTTLE IV ONE (11:00)
[2016-11-28] MEDS ORDERED: REMIFENTANIL HCL 1 MG VIAL ONE (11:00)
[2016-11-28] MEDS ORDERED: PHENYLEPHRINE HCL 100 MCG/ML SYR ONE (11:22)
[2016-11-28] MEDS ORDERED: SUGAMMADEX SODIUM 200 MG/2 ML VIAL IVP ONE (11:51)
[2016-11-28] MEDS ORDERED: DEXAMETHASONE 4 MG/ML VIAL ONE ×2 (12:00)
--- NOTE | 2016-11-28 12:10 | POSTOPPROG ---
Post Op Note Date of Operation: 11/28/16 Surgeon: Yang Matta Surgical Services Manager: teagan gomez Anesthesiologist: lena Anesthesia: GET(General Endotracheal) Pre-op Diagnosis: critical left carotid stenosis with hx of cva Post-op Diagnosis: same Indication: increased stenosis Procedure: left carotid enderterectomy with eeg Findings: localized calcified 95% stenosis Inf/Abcess present in the surg proc area at time of surgery?: No Depth: Organ Space EBL: 50-100 Complications: 0 Specimen(s): plaque
[2016-11-28] MEDS ORDERED: HYDROCODONE/APAP 5/325 TAB PO PRN (12:14)
[2016-11-28] MEDS ORDERED: HYDROmorphONE/DILAUDID 1 MG/ML SYR IVP PRN (12:14)
[2016-11-28] MEDS ORDERED: ONDANSETRON 4 MG/2 ML VIAL IVP PRN (12:14)
[2016-11-28] MEDS: D5W 1/2 NS W/ 20 KCl/L 1,000 ML IV SCH (13:00)
[2016-11-28] MEDS: CARVEDILOL 6.25 MG TAB PO SCH ×2 (13:00→20:07)
[2016-11-28] MEDS: UBIQUINOL 100 MG PO SCH (13:01)
[2016-11-28] MEDS: CYANOCOBALAMIN/FA/PYRIDOXINE 1 EACH TAB PO SCH (13:01)
--- NOTE | 2016-11-28 13:22 | HOSPPROG ---
Hospitalist Progress Note Assessment/Plan: # Severe carotid stenosis- Acute- CTA - shows bilateral 90% stenosis CT chest (personally reviewed and interpreted) no infiltrates cardiac calcifications noted by Radiology myocardial perfusion scan (reviewed) no inducible ischemia - plan for left CEA today - NPO for OR - receiving perioperative antibiotics # Meningioma- chronic A large, chronic, evidence of more dramatic midline shift -consultation by Dr. Oconnor appreciated - patient and family not interested in any interventions # Tachyarrhythmia- Acute TELE (personally reviewed and interpreted) sinus with PAC's in 70's- creatinine and potassium normal oxygen saturations 96% on 3L -cont telemetry -continue patient's home dosage of beta-maritza # history of CVA with remnant deficits- continue holding Plavix for OR # Diet. Cardiac- NPO # Prophylaxis. High risk patient, pharmacologic contraindicated given possible surgery, SCDs #Code. Full per patient, her daughter is her MPOA # disposition - > 2MN as pt requires surgical intervention for carotid stenosis I have discussed the case with Dr. Matta- plan for operating room this morning Subjective: no events overnight Objective: Vital Signs Temp Pulse Resp BP Pulse Ox 37.1 C 71 19 103/46 L 94 11/28/16 12:47 11/28/16 13:00 11/28/16 13:00 11/28/16 13:00 11/28/16 13:00 11/27/16 11/28/16 11/29/16 05:59 05:59 05:59 Intake Total 850 1200 1000 Output Total 100 Balance 850 1200 900 PT 14.4 SEC (12.0-15.0) 11/26/16 04:20 INR 1.13 (0.83-1.16) 11/26/16 04:20 - Physical Exam Constitutional: chronically ill appearing Eyes: anicteric sclera Ears, Nose, Mouth, Throat: moist mucous membranes Cardiovascular: regular rate and rhythym, systolic murmur Respiratory: no respiratory distress, no rales or rhonchi Gastrointestinal: normoactive bowel sounds, soft, non-tender abdomen Genitourinary: no bladder fullness Skin: warm, normal color Musculoskeletal: No asymmetric calves Neurologic: AAOx3 Psychiatric: interacting appropriately Lymph, Heme, Immunologic: no cervical LAD ICD10 Worksheet Patient Problems: Problems Problem Status Diagnosed Carotid artery stenosis Acute Meningioma Acute
[2016-11-28] MEDS ORDERED: NS 500 ML IV ONE (14:00)
[2016-11-28] MEDS: SOLIFENACIN SUCCINATE 5 MG TAB PO SCH (14:14)
[2016-11-28] MEDS ORDERED: ALBUMIN 5% 500 ML IV ONE ×2 (15:00→16:30)
--- NOTE | 2016-11-28 17:11 | SOAPPROG ---
SOAP Progress Note Assessment/Plan: Assessment: 86 FEMALE WITH SEVERE BILAT CAROTID STENOSES> 90% WITH HX OF PRIOR CVA, MOSTLY RESOLVED ALSO CHRONIC LARGE MENINGIOMA ADMITTED FOR EVAL AND CARDIAC STRESS TEST RISKS AND OPTIONS FULLY DISCUSSED Plan: WILL NEED BILAT CEAs MINERVA AFTER CARDIAC AND MED EVAL 11/25/16 20:36 11/28/16 08:37 SURGICAL RISKS AND OPTIONS FULLY DISCUSSED AND SHE AND DAUGHTER WISH TO PROCEED / WE WILL START WITH LEFT SIDE 11/28/16 17:07 postop sleepy but oriented. Neuro exam intact. Wound is a clean and dry Objective: Vital Signs Temp Pulse Resp BP Pulse Ox 37.1 C 79 22 H 108/47 L 96 11/28/16 16:00 11/28/16 17:00 11/28/16 17:00 11/28/16 17:00 11/28/16 17:00 11/27/16 11/28/16 11/29/16 05:59 05:59 05:59 Intake Total 850 1200 2100 Output Total 200 Balance 850 1200 1900 PT 14.4 SEC (12.0-15.0) 11/26/16 04:20 INR 1.13 (0.83-1.16) 11/26/16 04:20 ICD10 Worksheet Patient Problems: Problems Problem Status Diagnosed Carotid artery stenosis Acute Meningioma Acute
[2016-11-28] MEDS: DONEPEZIL HCL 5 MG TAB PO SCH (21:16)
[2016-11-28] MEDS: MIRTAZAPINE 15 MG TAB PO SCH (21:16)
[2016-11-28] MEDS: PRAVASTATIN SODIUM 40 MG TAB PO SCH (21:16)
[2016-11-28] MEDS: PRAMIPEXOLE 0.125 MG TAB PO SCH (21:16)
[2016-11-29] MEDS: D5W 1/2 NS W/ 20 KCl/L 1,000 ML IV SCH (02:46)
[2016-11-29 06:20] LABS: % IMMATURE GRANULYOCYTES 0.6 % (0.0-1.1); ABSOLUTE IMMATURE GRANULOCYTES 0.07 10^3/uL (0.00-0.10); ADD DIFF? NO; ADD MORPH? NO; ADD SCAN? NO; ATYPICAL LYMPHOCYTE FLAG 20 (0-99); FRAGMENT RBC FLAG 0 (0-99); HEMATOCRIT 29.2 % (38.0-47.0); HEMOGLOBIN 9.8 g/dL (12.6-16.3); LEFT SHIFT FLG 50 (0-99); LIPEMIA HEMOLYSIS FLAG 80 (0-99); MEAN CELL HEMOGLOBIN 32.5 pg (27.9-34.1); MEAN CELL HEMOGLOBIN CONCENTR. 33.6 g/dL (32.4-36.7); MEAN CELL VOLUME 96.7 fL (81.5-99.8); MEAN PLATELET VOLUME 11.8 fL (8.7-11.7); PLATELET CLUMPS FLAG 0 (0-99); PLATELET COUNT 202 10^3/uL (150-400); RED BLOOD CELL COUNT 3.02 10^6/uL (4.18-5.33); RED CELL DISTRIBUTION WIDTH 13.6 % (11.5-15.2)
[2016-11-29 06:34] LABS: ANION GAP 12 mEq/L (8-16); CARBON DIOXIDE 19 mEq/l (22-31); CHLORIDE 108 mEq/L (97-110); CREATININE 0.6 mg/dL (0.6-1.0); GLOMERULAR FILTRATION RATE > 60; GLUCOSE 157 mg/dL (70-100); POTASSIUM 4.2 mEq/L (3.5-5.2); SODIUM 139 mEq/L (134-144)
[2016-11-29] MEDS: CYANOCOBALAMIN/FA/PYRIDOXINE 1 EACH TAB PO SCH (09:11)
[2016-11-29] MEDS: CARVEDILOL 6.25 MG TAB PO SCH ×2 (09:11→20:24)
[2016-11-29] MEDS: SOLIFENACIN SUCCINATE 5 MG TAB PO SCH (09:11)
[2016-11-29] MEDS: UBIQUINOL 100 MG PO SCH ×2 (09:12→12:17)
--- NOTE | 2016-11-29 09:43 | SOAPPROG ---
SOAP Progress Note Assessment/Plan: Assessment: 86 FEMALE WITH SEVERE BILAT CAROTID STENOSES> 90% WITH HX OF PRIOR CVA, MOSTLY RESOLVED ALSO CHRONIC LARGE MENINGIOMA ADMITTED FOR EVAL AND CARDIAC STRESS TEST RISKS AND OPTIONS FULLY DISCUSSED Plan: WILL NEED BILAT CEAs MINERVA AFTER CARDIAC AND MED EVAL 11/25/16 20:36 11/28/16 08:37 SURGICAL RISKS AND OPTIONS FULLY DISCUSSED AND SHE AND DAUGHTER WISH TO PROCEED / WE WILL START WITH LEFT SIDE 11/28/16 17:07 postop sleepy but oriented. Neuro exam intact. Wound is a clean and dry 11/29/16 09:42 VITAL SIGNS GREAT. NEURO EXAM GOOD. WOUND OKAY. PROGRESSING NICELY. HOPEFULLY HOME IN THE MORNING. PLAN IS ADVANCED DIET SHE ALSO HAS A COUGH WHICH IS PRODUCTIVE. WILL ORDER CHEST X-RAY Objective: Vital Signs Temp Pulse Resp BP Pulse Ox 36.4 C 62 14 130/69 H 96 11/29/16 07:53 11/29/16 07:53 11/29/16 07:53 11/29/16 07:53 11/29/16 07:53 Laboratory Results 11/29/16 05:23 11/29/16 05:23 11/28/16 11/29/16 11/30/16 05:59 05:59 05:59 Intake Total 1200 4145 Output Total 1150 Balance 1200 2995 PT 14.4 SEC (12.0-15.0) 11/26/16 04:20 INR 1.13 (0.83-1.16) 11/26/16 04:20 ICD10 Worksheet Patient Problems: Problems Problem Status Diagnosed Carotid artery stenosis Acute Meningioma Acute
--- NOTE | 2016-11-29 11:08 | HOSPPROG ---
Hospitalist Progress Note Assessment/Plan: 86 yo female, s/p left carotid endartectomy 2/3, now with cough intemittent; no c/oi chest pain, SOB; patient new to me today # Severe carotid stenosis- s/p endartectomy; POD #1 #cough: CT chest (personally reviewed and interpreted) no infiltrates cardiac calcifications noted by Radiology myocardial perfusion scan (reviewed) no inducible ischemia will get CXR today; order anio jocelynn; ana; # Meningioma- chronic A large, chronic, evidence of more dramatic midline shift -consultation by Dr. Oconnor appreciated - patient and family not interested in any interventions # Tachyarrhythmia- on admision; post op in NSR at 70-80's # history of CVA with remnant deficits- continue holding Plavix for OR # Diet. Cardiac regular # Prophylaxis. High risk patient, pharmacologic contraindicated given possible surgery, SCDs #Code. Full per patient, her daughter is her MPOA # day to day currently; she does not use O2 at home; possible DC 2/6 if improved with cough, and CXR is clear; following with surgery Subjective: having intermittent cough; c/o some neck pain. Objective: Vital Signs Temp Pulse Resp BP Pulse Ox 36.4 C 62 14 130/69 H 96 11/29/16 07:53 11/29/16 07:53 11/29/16 07:53 11/29/16 07:53 11/29/16 07:53 Laboratory Results 11/29/16 05:23 11/29/16 05:23 11/28/16 11/29/16 11/30/16 05:59 05:59 05:59 Intake Total 1200 4145 Output Total 1150 Balance 1200 2995 PT 14.4 SEC (12.0-15.0) 11/26/16 04:20 INR 1.13 (0.83-1.16) 11/26/16 04:20 - Time Spent With Patient Time Spent with Patient: greater than 35 minutes Time Spent with Patient: Greater than 35 minutes spent on this patients care, greater than 50% of time spent counseling, educating, and coordinating care regarding the above mentioned plan. - Pending Discharge Pending Discharge Within 24 Hours: No Pending Discharge Within 48 Hours: Yes Pending Discharge Date: 12/01/16 Pending Discharge Time: 11:00 - Physical Exam Constitutional: no apparent distress, other (intermittent cough) Eyes: PERRL, anicteric sclera Ears, Nose, Mouth, Throat: moist mucous membranes, hearing normal, other (neck with surgical dressing; no signs of drainage or inflammation) Cardiovascular: regular rate and rhythym, no murmur, rub, or gallop Respiratory: inspiratory crackles, rhonchi Gastrointestinal: normoactive bowel sounds, soft, non-tender abdomen, no palpable masses Genitourinary: no bladder fullness, no bladder tenderness Skin: warm Musculoskeletal: generalized weakness Psychiatric: interacting appropriately ICD10 Worksheet Patient Problems: Problems Problem Status Diagnosed Carotid artery stenosis Acute Meningioma Acute
[2016-11-29] MEDS: guaiFENesin 600 MG TAB.ER PO SCH ×2 (12:16→20:29)
[2016-11-29] MEDS: IPRATROPIUM/ALBUTEROL 3 ML DEYVIAL IH SCH ×3 (12:42→20:55)
[2016-11-29] MEDS: BENZONATATE 100 MG CAP PO PRN (14:48)
--- NOTE | 2016-11-29 15:07 | DX ---
PA and Lateral Upright Views of the Chest November 29, 2016 at 1:39 p.m. Clinical History: 86-year-old female status post carotid endarterectomy with a cough. Comparison Study: Chest CT scan, dated November 25, 2016. Findings: Oxygen tubing and telemetry monitoring lead lines are present. The cardiac silhouette is en larged and there is peribronchial thickening with pulmonary vascular redistribution and interim devel opment of small bilateral pleural effusions with some bibasilar compressive subsegmental atelectasis versus minimal infiltrates. There is no evidence of a pneumothorax. There is mild biapical pleural th ickening. The trachea is midline. The osseous structures are age-appropriate. Impression: Features suggestive of some congestive heart failure/fluid overload. Superimposed infiltr ates at the lung bases are not excluded given the degree of pleuroparenchymal consolidation which has developed since November 25, 2016.
[2016-11-29] MEDS: PRAMIPEXOLE 0.125 MG TAB PO SCH (20:24)
[2016-11-29] MEDS: PRAVASTATIN SODIUM 40 MG TAB PO SCH (20:29)
[2016-11-29] MEDS: DONEPEZIL HCL 5 MG TAB PO SCH (20:29)
[2016-11-29] MEDS: MIRTAZAPINE 15 MG TAB PO SCH (20:29)
[2016-11-30] MEDS: IPRATROPIUM/ALBUTEROL 3 ML DEYVIAL IH SCH ×4 (05:12→22:41)
[2016-11-30 05:32] LABS: % IMMATURE GRANULYOCYTES 0.6 % (0.0-1.1); ABSOLUTE IMMATURE GRANULOCYTES 0.08 10^3/uL (0.00-0.10); ADD DIFF? NO; ADD MORPH? NO; ADD SCAN? NO; ATYPICAL LYMPHOCYTE FLAG 10 (0-99); FRAGMENT RBC FLAG 0 (0-99); HEMATOCRIT 27.2 % (38.0-47.0); HEMOGLOBIN 9.2 g/dL (12.6-16.3); LEFT SHIFT FLG 20 (0-99); LIPEMIA HEMOLYSIS FLAG 90 (0-99); MEAN CELL HEMOGLOBIN 32.2 pg (27.9-34.1); MEAN CELL HEMOGLOBIN CONCENTR. 33.8 g/dL (32.4-36.7); MEAN CELL VOLUME 95.1 fL (81.5-99.8); PLATELET CLUMPS FLAG 0 (0-99); PLATELET COUNT 230 10^3/uL (150-400); RED BLOOD CELL COUNT 2.86 10^6/uL (4.18-5.33); RED CELL DISTRIBUTION WIDTH 13.6 % (11.5-15.2)
[2016-11-30 05:55] LABS: ANION GAP 9 mEq/L (8-16); CALCIUM 8.9 mg/dL (8.5-10.4); CARBON DIOXIDE 22 mEq/l (22-31); CHLORIDE 106 mEq/L (97-110); CREATININE 0.8 mg/dL (0.6-1.0); GLOMERULAR FILTRATION RATE > 60; GLUCOSE 101 mg/dL (70-100); POTASSIUM 4.1 mEq/L (3.5-5.2); SODIUM 137 mEq/L (134-144)
[2016-11-30] MEDS: guaiFENesin 600 MG TAB.ER PO SCH ×2 (08:44→21:04)
[2016-11-30] MEDS: CYANOCOBALAMIN/FA/PYRIDOXINE 1 EACH TAB PO SCH (08:44)
[2016-11-30] MEDS: SOLIFENACIN SUCCINATE 5 MG TAB PO SCH (08:44)
[2016-11-30] MEDS: BENZONATATE 100 MG CAP PO PRN ×3 (08:44→21:03)
[2016-11-30] MEDS: CARVEDILOL 6.25 MG TAB PO SCH ×3 (08:45→21:44)
[2016-11-30] MEDS: UBIQUINOL 100 MG PO SCH (08:48)
--- NOTE | 2016-11-30 09:14 | SOAPPROG ---
SOAP Progress Note Assessment/Plan: Assessment/Plan: 86 Y F hx CVA, meningioma, B carotid stenosis, s/p L CEA. + cough. Healing well from surgery. Stable neuro exam. Incision clean--outer bandage removed. Will eventually need R CEA. Ok to d/c from a surgical standpoint. May need further care for cough--defer to medicine. 11/30/16 09:11 Subjective: Not much pain. c/o cough. Eager to go home. Objective: Vital Signs Temp Pulse Resp BP Pulse Ox 37.4 C 105 H 17 123/76 H 99 11/30/16 08:00 11/30/16 08:00 11/30/16 08:00 11/30/16 08:00 11/30/16 08:00 Laboratory Results 11/30/16 03:48 11/30/16 03:48 11/29/16 11/30/16 12/01/16 05:59 05:59 05:59 Intake Total 4145 1250 Output Total 1150 1175 Balance 2995 75 PT 14.4 SEC (12.0-15.0) 11/26/16 04:20 INR 1.13 (0.83-1.16) 11/26/16 04:20 alert, nad inc cdi, min swelling, no erythema tongue midline lungs clear rrr ICD10 Worksheet Patient Problems: Problems Problem Status Diagnosed Carotid artery stenosis Acute Meningioma Acute
[2016-11-30] MEDS ORDERED: NS 500 ML IV ONE (10:35)
[2016-11-30] MEDS ORDERED: IOPAMIDOL (ISOVUE 370) 100 ML BTL IV ONE (10:36)
--- NOTE | 2016-11-30 10:43 | HOSPPROG ---
Hospitalist Progress Note Assessment/Plan: 86 yo female, POD 2 s/p left carotid endartectomy 2/3, R sided facial droop today facial droop: NOT a candidate for lytics stroke alert not w CTA of head and neck bolus NS Severe carotid stenosis- s/p endartectomy; POD #2 cough: CT chest (personally reviewed and interpreted) no infiltrates cardiac calcifications noted by Radiology myocardial perfusion scan (reviewed) no inducible ischemia Meningioma- chronic A large, chronic, evidence of more dramatic midline shift -consultation by Dr. Oconnor appreciated - patient and family not interested in any interventions Tachyarrhythmia- on admision; post op in NSR at 70-80's history of CVA with remnant deficits- continue holding Plavix for OR Diet. Cardiac regular Prophylaxis. High risk patient, pharmacologic contraindicated given possible surgery, SCDs Code. Full per patient, her daughter is her MPOA \ Subjective: PT noted R sided facial droop. patient acknowledges that she does have it. case d/w dr boyd. tele: AF (interp by me) Objective: Vital Signs Temp Pulse Resp BP Pulse Ox 37.4 C 105 H 17 123/76 H 99 11/30/16 08:00 11/30/16 08:00 11/30/16 08:00 11/30/16 08:00 11/30/16 08:00 Laboratory Results 11/30/16 03:48 11/30/16 03:48 11/29/16 11/30/16 12/01/16 05:59 05:59 05:59 Intake Total 4145 1250 Output Total 1150 1175 Balance 2995 75 PT 14.4 SEC (12.0-15.0) 11/26/16 04:20 INR 1.13 (0.83-1.16) 11/26/16 04:20 - Physical Exam Constitutional: no apparent distress, appears nourished Eyes: PERRL, anicteric sclera Ears, Nose, Mouth, Throat: moist mucous membranes, hearing normal Cardiovascular: regular rate and rhythym, no murmur, rub, or gallop Respiratory: no respiratory distress, no rales or rhonchi Gastrointestinal: normoactive bowel sounds, soft, non-tender abdomen Genitourinary: No vazquez in urethra Skin: warm, normal color Musculoskeletal: full muscle strength, no muscle tenderness Neurologic: facial droop, other (R sided facial doop. no R hand or arm weakness) Psychiatric: interacting appropriately, not anxious Lymph, Heme, Immunologic: no cervical LAD ICD10 Worksheet Patient Problems: Problems Problem Status Diagnosed Carotid artery stenosis Acute Meningioma Acute
--- NOTE | 2016-11-30 11:07 | CT ---
CT Brain (Without Contrast) at 1043 hours History: Stroke alert. Altered mental status, difficulty speaking. Comparison: CT November 25, 2016. Technique: Axial computed tomographic images of the brain without contrast. Dose reduction techniques were utilized. Findings: In the anterior inferior lateral aspect of the left frontal lobe again is identified hyperd ense 6 x 4 cm lesion consistent with a benign meningioma. There is persistent mass effect and midline shift towards the right with rightward subfalcine herniation of 8 mm. Left frontal vasogenic edema a gain noted. No hydrocephalus. Moderate diffuse atrophy and moderate microvascular ischemic changes in the white matter. No evidence of acute hemorrhage. No definite acute infarct. Cerebrovascular atherosclerotic calcification in bilateral cavernous internal carotid arteries. Small amount of fluid in the left sphenoid sinus. Fourth ventricle is patent. Impression: 1. Large left frontal meningioma measuring 6 x 4 cm resulting in rightward subfalcine herniation 8 mm . 2. Moderate diffuse atrophy and moderate microvascular ischemic gliosis. 3. No acute hemorrhage. 4. Consider additional MR imaging. Dr. Neftali Reyna notified at 1052 hours.
--- NOTE | 2016-11-30 12:22 | CT ---
CT Angiogram Neck With Contrast Enhancement and Multiplanar Reconstructions at 1047 hours History: Stroke protocol. Right facial droop, confusion, left meningioma, left carotid endarterecto my Technique: 1.25-mm axial multidetector helical CT imaging was performed through the brain and neck wh ile 85 mL Isovue-370 were injected intravenously without complication. The images were then transfer red to an independent workstation where multiplanar and three-dimensional reconstructions were perfor med by the interpreting physician and reviewed at multiple windows. Dose reduction techniques were ut ilized. CTA Findings: Moderate bilateral pleural effusions partially visualized. Patchy alveolar opacities in the superior segments of bilateral lower lobes also partially visualized. Atherosclerotic plaque at the aortic arch. No significant atherosclerosis stenosis of the origin of the great vessels or bilate ral subclavian arteries. Patent bilateral codominant vertebral arteries with moderate atherosclerotic disease in bilateral dis [place] vertebral arteries just prior to the vertebrobasilar junction. Status post left carotid endarterectomy with a small amount of fluid and gas surrounding the carotid bifurcation site. There is a patent left carotid bifurcation, carotid bulb, with tortuous proximal le ft internal carotid artery. However, no evidence of dissection, complete occlusion or intraluminal th rombus in the left carotid system. Severe irregular atherosclerotic plaque involving the right carotid bulb, distal common carotid arter y and proximal right internal carotid artery with severe 90% stenosis of the proximal right internal carotid artery. However, no evidence of complete occlusion or intraluminal thrombus. Heterogenous thyroid gland. Asymmetric fullness in the left piriform sinus. Bilateral submandibular l ymph nodes. Bilateral internal jugular veins demonstrate no thrombus. Impression: 1. Recent left carotid endarterectomy without stenosis. Tortuous left internal carotid artery. 2. Severe atherosclerotic stenosis of the right carotid bulb with 90% stenosis of the proximal right internal carotid artery. 3. Moderate to severe atherosclerotic plaque and approximately 80% stenosis of bilateral distal verte bral arteries without complete occlusion. 4. Moderate bilateral pleural effusions with bilateral lower lobe superior segment pneumonitis partia lly visualized. Measurement of carotid stenosis is based on the residual internal carotid diameter with [place] Symptomatic Carotid Endarterectomy Trial (NASCET) based stenosis levels. CT Angiogram of the Brain Clinical Indications: Stroke protocol. Right facial droop, confusion, left meningioma, left carotid endarterectomy. Technique: CT angiogram of the brain and neck was performed with the uneventful intravenous administ ration of 85 mL Isovue-370 contrast. Multiplanar reconstructions including 3D reconstructions perform ed and evaluated on [employer] workstation in order to better evaluate the [place] vessels. Imag es were manipulated by the radiologist at the computer workstation. Dose reduction techniques were ut ilized. Findings: Major vessels of the [place] are adequately displayed, demonstrating moderate ath erosclerotic plaque involving bilateral internal carotid arteries at the carotid siphon and pericaver nous regions without intraluminal thrombus or complete occlusion. Moderate to severe atherosclerotic plaque in the distal bilateral vertebral arteries with a patent basilar artery. No evidence of intral uminal thrombus in the [place] vessels. However, there is a large left frontal meningioma measuring 6 x 4 cm in the anteroinferior lateral as pect of the left frontal lobe sylvian fissure region with surrounding vasogenic edema, resulting in r ightward midline shift and subfalcine herniation 8 mm. Superior sagittal sinus, transverse sinuses, and major veins demonstrate no evidence of intraluminal thrombi. Impression: 1. Cerebrovascular atherosclerosis. 2. No evidence of [place] vessels intraluminal thrombi or complete occlusion. 3. Left frontal 6 x 4 cm meningioma with surrounding vasogenic edema, rightward subfalcine herniation and mass effect. Report given to Dr. Pato Reyna at 1159 hours.
--- NOTE | 2016-11-30 12:22 | CT ---
CT Angiogram Neck With Contrast Enhancement and Multiplanar Reconstructions at 1047 hours History: Stroke protocol. Right facial droop, confusion, left meningioma, left carotid endarterecto my Technique: 1.25-mm axial multidetector helical CT imaging was performed through the brain and neck wh ile 85 mL Isovue-370 were injected intravenously without complication. The images were then transfer red to an independent workstation where multiplanar and three-dimensional reconstructions were perfor med by the interpreting physician and reviewed at multiple windows. Dose reduction techniques were ut ilized. CTA Findings: Moderate bilateral pleural effusions partially visualized. Patchy alveolar opacities in the superior segments of bilateral lower lobes also partially visualized. Atherosclerotic plaque at the aortic arch. No significant atherosclerosis stenosis of the origin of the great vessels or bilate ral subclavian arteries. Patent bilateral codominant vertebral arteries with moderate atherosclerotic disease in bilateral dis [place] vertebral arteries just prior to the vertebrobasilar junction. Status post left carotid endarterectomy with a small amount of fluid and gas surrounding the carotid bifurcation site. There is a patent left carotid bifurcation, carotid bulb, with tortuous proximal le ft internal carotid artery. However, no evidence of dissection, complete occlusion or intraluminal th rombus in the left carotid system. Severe irregular atherosclerotic plaque involving the right carotid bulb, distal common carotid arter y and proximal right internal carotid artery with severe 90% stenosis of the proximal right internal carotid artery. However, no evidence of complete occlusion or intraluminal thrombus. Heterogenous thyroid gland. Asymmetric fullness in the left piriform sinus. Bilateral submandibular l ymph nodes. Bilateral internal jugular veins demonstrate no thrombus. Impression: 1. Recent left carotid endarterectomy without stenosis. Tortuous left internal carotid artery. 2. Severe atherosclerotic stenosis of the right carotid bulb with 90% stenosis of the proximal right internal carotid artery. 3. Moderate to severe atherosclerotic plaque and approximately 80% stenosis of bilateral distal verte bral arteries without complete occlusion. 4. Moderate bilateral pleural effusions with bilateral lower lobe superior segment pneumonitis partia lly visualized. Measurement of carotid stenosis is based on the residual internal carotid diameter with [place] Symptomatic Carotid Endarterectomy Trial (NASCET) based stenosis levels. CT Angiogram of the Brain Clinical Indications: Stroke protocol. Right facial droop, confusion, left meningioma, left carotid endarterectomy. Technique: CT angiogram of the brain and neck was performed with the uneventful intravenous administ ration of 85 mL Isovue-370 contrast. Multiplanar reconstructions including 3D reconstructions perform ed and evaluated on [employer] workstation in order to better evaluate the [place] vessels. Imag es were manipulated by the radiologist at the computer workstation. Dose reduction techniques were ut ilized. Findings: Major vessels of the [place] are adequately displayed, demonstrating moderate ath erosclerotic plaque involving bilateral internal carotid arteries at the carotid siphon and pericaver nous regions without intraluminal thrombus or complete occlusion. Moderate to severe atherosclerotic plaque in the distal bilateral vertebral arteries with a patent basilar artery. No evidence of intral uminal thrombus in the [place] vessels. However, there is a large left frontal meningioma measuring 6 x 4 cm in the anteroinferior lateral as pect of the left frontal lobe sylvian fissure region with surrounding vasogenic edema, resulting in r ightward midline shift and subfalcine herniation 8 mm. Superior sagittal sinus, transverse sinuses, and major veins demonstrate no evidence of intraluminal thrombi. Impression: 1. Cerebrovascular atherosclerosis. 2. No evidence of [place] vessels intraluminal thrombi or complete occlusion. 3. Left frontal 6 x 4 cm meningioma with surrounding vasogenic edema, rightward subfalcine herniation and mass effect. Report given to Dr. Pato Reyna at 1159 hours.
--- NOTE | 2016-11-30 12:27 | GOP ---
[f rep st] OPERATIVE REPORT DATE OF OPERATION: 11/28/2016 SURGEON: Yang Mtata MD LEAD BURNER SUPERVISOR: Dr. Luz Leigh ANESTHESIOLOGIST: Dr. Trevino PREOPERATIVE DIAGNOSIS: Critical left carotid stenosis with history of cerebrovascular accident. POSTOPERATIVE DIAGNOSIS: Critical left carotid stenosis with history of cerebrovascular accident. PROCEDURE PERFORMED: A left carotid endarterectomy with electroencephalogram monitoring. FINDINGS: The patient was found to have a very localized, but calcified 95% stenosis of the internal carotid origin. She had reasonably good backflow and no EEG changes during the procedure. ESTIMATED BLOOD LOSS: Less than 100 cc. DESCRIPTION OF PROCEDURE: Patient taken to the operating room, where she received a satisfactory gen eral endotracheal anesthesia by Dr. Trevino, placed in the supine position. She was systemicall y heparinized prior to induction of anesthesia, prepped and draped in the usual sterile fashion. An incision was made along the anterior border of the sternocleidomastoid muscle. Dissection was car ried down through the platysma and subcutaneous tissue, and through the superficial fascia. The comm on facial vein was multiply ligated and divided, exposing the carotid arterial tree which was then di ssected free. The common carotid internal carotid and external carotid arteries were all isolated wi th vessel loops. The inferior thyroid artery was controlled with a silk loop. After adequate exposure was achieved, patient was given additional heparin and after adequate circula tion time, the vessels were occluded with vessel loops. An arteriotomy was made in the common caroti d artery and extended up through the dense plaque into the internal carotid artery. The plan was to place a shunt, but the backflow was quite good and the lesion was localized, and the EEG showed no ch anges. An expeditious endarterectomy was then done, removing this thick, calcified plaque. A good e ndpoint was achieved. Hemostasis was assured. All debris was flushed out of the vessels and removed . All the vessels were backflushed. The arteriotomy was then closed with a Dacron patch using a running Hemashield 7 suture. The vessels were backflushed prior to completion of the suture line, and then flow was first established through the external carotid artery and then through the internal carotid. The suture line appeared to be h emostatic. Heparin was reversed with protamine. The wound was sprayed with some topical thrombin. Hemostasis w as assured. The wound was closed in layers using 2-0 Vicryl for the cervical fascia, 3-0 Vicryl for the platysma and subcutaneous tissue, and a 4-0 Monocryl subcuticular stitch for the skin. All super ficial layers were infiltrated with 0.5% Marcaine. All layers had been sprayed with some topical thr ombin. The wound was dressed. She tolerated the procedure quite well. She awoke moving all extremities, no particular difficulties , taken to the recovery room in good condition. COMPLICATIONS: None. Copy requested to: [facility] /[id number]/MODL
[2016-11-30] MEDS ORDERED: POTASSIUM Cl (KCl) 100 ML IV ONE (16:15)
[2016-11-30] MEDS: FUROSEMIDE 40 MG TAB PO SCH (16:50)
[2016-11-30] MEDS ORDERED: POTASSIUM CL 10 MEQ TAB PO ONE (17:00)
[2016-11-30] MEDS: ACETAMINOPHEN 500 MG TAB PO PRN (17:54)
--- NOTE | 2016-11-30 18:47 | HOSPPROG ---
Hospitalist Progress Note Assessment/Plan: XC note: Called for Temp 100.9 in setting of increasing cough and SOB. Pt received 40 mg oral Lasix this afternoon. She has had a vazquez during this hospitalization. No reported urinary symptoms, though pt has had waxing and waning mental status, stroke alert this am for facial droop. Imaging showed likely hemangioma. Reviewed CXR from yesterday, ?minimal bibasilar infiltrates vs atelectasis, along with evidence of volume overload. Also considered central source of fever with suspected meningioma. -Repeat CXR relatively unchanged, more c/w volume overload, s/p lasix -Check BCx's, UA / culture if indicated, given fever with recent vazquez Objective: Vital Signs Temp Pulse Resp BP Pulse Ox 37.8 C 68 18 154/86 H 92 11/30/16 16:00 11/30/16 17:26 11/30/16 17:26 11/30/16 16:00 11/30/16 17:26 Laboratory Results 11/30/16 03:48 11/30/16 03:48 11/29/16 11/30/16 12/01/16 05:59 05:59 05:59 Intake Total 4145 1250 1000 Output Total 1150 1175 500 Balance 2995 75 500 PT 14.4 SEC (12.0-15.0) 11/26/16 04:20 INR 1.13 (0.83-1.16) 11/26/16 04:20 ICD10 Worksheet Patient Problems: Problems Problem Status Diagnosed Carotid artery stenosis Acute Meningioma Acute
--- NOTE | 2016-11-30 19:15 | DX ---
AP Portable Chest November 30, 2016 Indication: Fever and shortness of breath. Comparison: November 29, 2016. Findings: There are bilateral lower lobe consolidations and pleural effusions. There is diffuse pul monary edema. The latter is probably not significantly changed compared to yesterday. Lung volumes are decreased. Bones and soft tissues are unchanged. Impression: 1. Bilateral lower lobe consolidation and pleural effusions. They are probably not significantly garcia ged given differences in techniques. 2. Bilateral pulmonary edema, probably not significantly changed. 3. Cardiomegaly is unchanged.
--- NOTE | 2016-11-30 19:40 | MR ---
MRI of the Brain (Without Contrast), 603 p.m. History: Possible stroke, altered mental status, difficulty speaking., Known left intracranial large meningioma Comparison: CT head earlier today 1043 a.m. Technique: T1-weighted images were acquired axially and sagittally from the foramen magnum to the ve rtex. Axial fast inversion recovery, fast T2-weighted, GRE and diffusion-weighted axial images were obtained without contrast. Findings: Some motion artifact on the study. The large left frontoparietal meningioma has some patchy internal field dropout on the gradient sequence consistent with calcification or hemorrhage. There is stable [id number] shift with compression of the anterior horn of the left lateral ventricle. Th ere is some vasogenic edema around the meningioma, as well as a stable cyst along its superior anteri or margin. The sulci in the left parietal and frontal region are narrowed, secondary to local mass ef fect from the meningioma. Scattered isovolumic T2-weighted foci of hyperintensity in the periventricu lar and deep white matter of the hemispheres are involved by the meningioma are consistent with typic al microvascular ischemic change. None are bright on the diffusion study. None are associated with he morrhage on the gradient study. There is no hydrocephalus. No separate intracranial hemorrhage or add itional mass is identified. Diffusion-weighted sequence demonstrates no acute infarct. Cerebellar ton sils are in normal position. Pituitary gland is grossly normal in size. Normal signal flow-void in th e superior sagittal sinus, basilar artery, and bilateral internal carotid arteries indicating patency . Paranasal sinuses and mastoid air cells are clear. Impression: No acute infarction identified. Vasogenic edema around the meningioma is of unknown chron icity or magnitude. Please see above.
[2016-11-30] MEDS: MIRTAZAPINE 15 MG TAB PO SCH (21:03)
[2016-11-30] MEDS: DONEPEZIL HCL 5 MG TAB PO SCH (21:03)
[2016-11-30] MEDS: PRAMIPEXOLE 0.125 MG TAB PO SCH (21:03)
[2016-11-30] MEDS: PRAVASTATIN SODIUM 40 MG TAB PO SCH (21:04)
[2016-11-30 21:37] LABS: COLOR PALE YELLOW; LEUKOCYTE ESTERASE,URINE NEGATIVE (NEGATIVE); NITRITE,URINE NEGATIVE (NEGATIVE)
[2016-11-30 21:52] LABS: RBC,URINE 25-50 /hpf (0-3)
--- NOTE | 2016-11-30 22:29 | GCON ---
[f rep st] CONSULTATION HISTORY OF PRESENT ILLNESS: The patient is an 86-year-old woman who I am asked to see in neurologic consultation regarding an acute change in neurologic status. The history is obtained from reviewing the medical records as well as discussion with the patient, her nurse, the hospitalist covering today , Dr. Reyna, and direct discussions with the patient's daughter who knows her mother's history extre esteban well. Her daughter is a practicing [employer]. According to her daughter, the patient suffered a s troke last year when she was in [place]. It caused right-sided weakness that was fairly substantial with some right facial droop, right arm weakness, and some right leg weakness. She went to rehab and made a very good recovery and was essentially back to normal. She, subsequently, has moved to this area last July and lives independently at [place]. She has a known large left hemisphere meningio ma that was followed by Neurosurgery there as well as Neurology, and the general feeling was they wou ld monitor it rather than proceed with surgery because of potential risks at her age. She had known carotid stenoses bilaterally and that was gradually getting a little bit worse, and then when she had recent workup, she was found to have rather severe stenoses towards 90% to 95% bilaterally and was r eferred for evaluation here to the hospital. There was concern because of the large meningioma, but her daughter clarified that was not new, although the degree of qbjn-ao-dzjyx shift may have changed; we do not have the direct films for comparison. She estimates that it may have been 3 or 4 mm befor e; now it is around 8-9 mm of shift. In any case, she had a carotid endarterectomy [address] Matta on the left and that went well. Yesterday, she was doing well and no one was aware of any new deficits on the right side. Today, after she put on some lipstick, it appeared evident around 10:30 in the morning or so that she had more right facial droop. This led to a stroke alert and a head CT was obtained that showed no hemorrhage but also changes of the large left meningioma with some shift , but nothing new compared to 5 days earlier on a previous CT. CT angiogram showed the stenosis on t he right carotid, but the left endarterectomy site looked good with yazdanism of flow. When I spok e to the patient, she initially was telling me she was not aware of any major changes and it was hard to get her to clarify. The more I spoke to her, the more clear it was that she has some expressive language difficulty and some confusion regarding the events. Her daughter clarified for me that this is all significantly different today compared to yesterday. The patient is denying any pain. That right-sided symptomatology is something she cannot really elaborate on other than supporting the fact that she had a stroke. There have not been clear-cut exacerbating or alleviating factors, other than when she is a little ti red she might have more problems. I reviewed with her daughter why her mother is on donepezil, and s he said it was not specifically for dementia but for some short-term memory loss. No other known his tory of ischemic events. She has never had a seizure. REVIEW OF SYSTEMS: A 10-point review of systems was completed and unremarkable except for that noted above. PAST MEDICAL HISTORY: As outlined above. But additional past medical history: Some congestive hear t failure with fairly stable echocardiogram and ejection fractions in the 40% range according to her daughter. History of frequent PACs, and she has mitral regurgitation. She told me she used to drink heavily but stopped in 1990. She is a former smoker, but I do not know the last time she had smokin g. FAMILY HISTORY: Unremarkable. MEDICATIONS: When she came to the hospital on admission, she was taking Plavix, paroxetine, VESIcare , Mirapex for restless legs, donepezil for memory loss, Lasix for congestive heart failure, carvedilo l, potassium, Estrace, some pyridoxine with B12 and folic acid, Remeron, and some herbal supplements. ALLERGIES: None are known. PHYSICAL EXAM: VITAL SIGNS: Blood pressure 154/86, pulse of 84, respirations 18, temperature 37.8. GENERAL: She is an elderly woman sitting up in the bed in no acute distress. EYES: Clear. NECK: Supple with no bruits or masses. CARDIAC: Regular rate and rhythm, but she has a prominent systoli c murmur. She has a little bit of a cough. EXTREMITIES: No significant edema. Pulses are 2+. CHYNA ROLOGIC: She is awake and alert with somewhat decreased concentration and attention. Her general fu nd of knowledge is also reduced. Decreased short-term memory but fairly well preserved long-term mem ory, so this is difficult to determine because she is demonstrating a little bit of expressive aphasi a. She could perform simple calculations. She could calculate when I gave her a problem dealing wit h money. She was able to spell. She could read words and sentences accurately and she could repeat. She occasionally had some word-finding problems initially, and then at various times, it was jt ng more obvious that she was having trouble with tangentiality and expressive language difficulty. P upils 3 mm and reactive. I do not detect any clear-cut visual field loss. I cannot view the fundi d ue to the small aperture. Visual acuity seems to be preserved. Extraocular movements are intact. N ormal facial sensation, but she has a right facial droop and right lower facial weakness of moderate degree. Her speech may be just slightly dysarthric. Palate elevates symmetrically. Tongue protrude s midline. Hearing is preserved. No weakness of head turning or shoulder shrug. On motor exam, the re is mild drift in the right upper extremity with 4/5 strength in the right upper extremity and norm al on the left for the arm and leg. Right lower extremity is also 4/5. Sensation seems to be equal with temperature and touch in the extremities as well as the face. Reflexes are 1 to 2+ with equivoc al findings on the right for any Babinski sign. No ataxic movements in the left upper extremity or t he right upper extremity, but just a little slower with rapid alternating movements in the right hand . The patient does not have any neglect. DIAGNOSTIC STUDIES: As outlined above. I reviewed the head CT directly as well as CT angiogram head and neck. There does not appear to be a significant change on head CT, but there is a significant m ass lesion with a meningioma documented and about 8-8.45 mm shift left to right in the subfalcine reg ion. LABORATORY DATA: Hematocrit of 27. Chemistry is unremarkable. IMPRESSION: The patient has a very complex case characterized by new neurologic deficits today, 2 da ys status post left carotid endarterectomy for severe bilateral carotid stenoses, and a prior history of left hemisphere stroke with nearly complete recovery at that time. Today, she had acute neurolog ic deficits develop; we do not know the exact onset but around 10:30 a.m. when it was evident to paramjit viduals working with her. She now has the expressive language difficulty, which is new, and some con fusion and then return of prior right-sided weakness that affects the face, arm, and leg. She could have suffered a new ischemic event. It is also possible that there is increasing edema that might stark ve developed after the endarterectomy and increased perfusion with this large mass lesion. Her short -term plan, in agreement with the daughter, is to obtain brain MRI and see if there is any evidence o f an acute ischemic change. If not, it would be logical to give her some Decadron for new cerebral e tomasa that may be present. Other medical problems include a history of some mild cognitive impairment with predominantly memory loss, congestive heart failure, and restless legs syndrome, and she has on going severe carotid stenosis on the right. She remains at high risk for neurologic deterioration fr om either edema or ischemic events, but we will continue to monitor her closely, and I will follow syl stokes with you and continue to consult as closely as possible with her daughter who has good knowledge of her mother's case and helps guide the approaches to therapy. /[id number]/MODL
[2016-12-01 05:05] LABS: % IMMATURE GRANULYOCYTES 0.6 % (0.0-1.1); ABSOLUTE IMMATURE GRANULOCYTES 0.07 10^3/uL (0.00-0.10); ADD DIFF? NO; ADD MORPH? NO; ADD SCAN? NO; ATYPICAL LYMPHOCYTE FLAG 30 (0-99); FRAGMENT RBC FLAG 0 (0-99); HEMATOCRIT 26.5 % (38.0-47.0); LEFT SHIFT FLG 10 (0-99); LIPEMIA HEMOLYSIS FLAG 90 (0-99); MEAN CELL HEMOGLOBIN 32.3 pg (27.9-34.1); MEAN PLATELET VOLUME 11.7 fL (8.7-11.7); PLATELET CLUMPS FLAG 20 (0-99); PLATELET COUNT 271 10^3/uL (150-400); RED BLOOD CELL COUNT 2.79 10^6/uL (4.18-5.33); RED CELL DISTRIBUTION WIDTH 13.6 % (11.5-15.2)
[2016-12-01] MEDS: IPRATROPIUM/ALBUTEROL 3 ML DEYVIAL IH SCH ×4 (05:54→22:15)
[2016-12-01 07:56] LABS: ANION GAP 9 mEq/L (8-16); CALCIUM 8.6 mg/dL (8.5-10.4); CARBON DIOXIDE 22 mEq/l (22-31); CHLORIDE 109 mEq/L (97-110); CREATININE 0.8 mg/dL (0.6-1.0); GLOMERULAR FILTRATION RATE > 60; GLUCOSE 91 mg/dL (70-100); SODIUM 140 mEq/L (134-144)
--- NOTE | 2016-12-01 08:22 | NEUROPROG ---
Assessment: The MRI study from yesterday showed no evidence of an acute stroke. There is cerebral edema with no major change in the degree of ahfn-re-ujksn shift compared to the prior CT, but this is probably worse over the last several months. Her daughter is going to try to obtain that data for clarification. I think her neurologic deficits are attributable to cerebral edema and Dr. Reyna has started her on Decadron 4 mg q.6 hours. I agree with that approach and the daughter is comfortable with this as well. We will consider the risks and benefits of more definitive therapy with perhaps surgical resection. I think I would recommend that before considering endarterectomy on the right which is currently an asymptomatic lesion despite its severity. Subjective: Patient's MRI scan was reviewed from yesterday. She says that she is feeling about the same. She is denying any new numbness or weakness but is aware of trouble with her speech and her right-sided weakness which is mild but still significantly worse than previously. She has not noticed any other alleviating or exacerbating factors for symptoms. She says she continues to have cough. There has not been a change in swallowing. Objective: Vital Signs Temp Pulse Resp BP Pulse Ox 37.3 C 75 19 129/89 H 94 12/01/16 04:00 12/01/16 04:00 12/01/16 04:00 12/01/16 04:00 12/01/16 04:00 Laboratory Results 12/01/16 03:54 12/01/16 03:54 11/30/16 12/01/16 12/02/16 05:59 05:59 05:59 Intake Total 1250 1350 Output Total 1175 1150 Balance 75 200 PT 14.4 SEC (12.0-15.0) 11/26/16 04:20 INR 1.13 (0.83-1.16) 11/26/16 04:20 She is just waking up but able to attend toward me. She has prominent upper airway congestion with cough. She continues to demonstrate some expressive language difficulties and a little bit of confusion about details, although she can speak in sentences and tell me that she was in [place] and had a stroke there and recently moved here because her daughter lives here. She is not having any significant change in the expression of speech compared to yesterday. There is right lower facial weakness. She also has a right darion paresis at 4/5. Sensation is preserved on the left and right. Allergies/Adverse Reactions: No Known Allergies Allergy (Unverified 11/25/16 16:49)
[2016-12-01] MEDS: DEXAMETHASONE 4 MG TAB PO SCH ×3 (08:27→18:04)
[2016-12-01] MEDS ORDERED: FUROSEMIDE 40 MG/4 ML VIAL IVP ONE (09:06)
[2016-12-01] MEDS ORDERED: POLYETHYLENE GLYCOL 3350 17 GM PKT PO PRN (09:10)
[2016-12-01] MEDS ORDERED: BISACODYL 10 MG SUPP PR PRN (09:10)
[2016-12-01] MEDS ORDERED: LACTULOSE 20 GM/30 ML UDCUP PO PRN (09:10)
[2016-12-01] MEDS ORDERED: MAGNESIUM HYDROXIDE 30 ML UDCUP PO PRN (09:10)
--- NOTE | 2016-12-01 09:14 | SOAPPROG ---
SOAP Progress Note Assessment/Plan: Assessment/Plan: 86 Y F hx CVA, meningioma, B carotid stenosis, s/p L CEA. + cough. Concern for stroke yesterday 2/2 facial droop, mild dysarthria. Neck and Head CTA, brain MRI neg for stroke. Appreciate medicine and neurology input-- decadron started for possible cerebral edema. Bowel protocol. Eventually should have R CEA. Dispo: pending. 12/01/16 09:10 Subjective: feels worn out and "blah" today. c/o constipation. Objective: Vital Signs Temp Pulse Resp BP Pulse Ox 37.0 C 77 20 129/70 H 94 12/01/16 08:00 12/01/16 08:00 12/01/16 08:00 12/01/16 08:00 12/01/16 08:00 Laboratory Results 12/01/16 03:54 12/01/16 03:54 11/30/16 12/01/16 12/02/16 05:59 05:59 05:59 Intake Total 1250 1350 Output Total 1175 1150 Balance 75 200 PT 14.4 SEC (12.0-15.0) 11/26/16 04:20 INR 1.13 (0.83-1.16) 11/26/16 04:20 alert, nad +R facial droop--asymmetric smile tongue midline pupils equal and round inc cdi ICD10 Worksheet Patient Problems: Problems Problem Status Diagnosed Carotid artery stenosis Acute Meningioma Acute
--- NOTE | 2016-12-01 09:27 | HOSPPROG ---
Hospitalist Progress Note Assessment/Plan: 86 yo female, POD 2 s/p left carotid endartectomy 2/3, R sided facial droop today facial droop: L carotid patent after CEA MR w no CVA but vasogenic edema around very large meningioma steroids started discussed w cardiology volume overload: IV lasix X 1 fever: workup neg hold abx Severe carotid stenosis- s/p endartectomy; POD #3 as above cough: CT chest (personally reviewed and interpreted) no infiltrates cardiac calcifications noted by Radiology myocardial perfusion scan (reviewed) no inducible ischemia Meningioma- chronic A large, chronic, evidence of more dramatic midline shift -consultation by Dr. Oconnor appreciated - patient and family not interested in any interventions Tachyarrhythmia- on admision; post op in NSR at 70-80's history of CVA with remnant deficits- continue holding Plavix for OR Diet. Cardiac regular Prophylaxis. High risk patient, pharmacologic contraindicated given possible surgery, SCDs Code. Full per patient, her daughter is her MPOA \ Subjective: case d/w aleah casas and rj. cxr w mild volume overload ( interp by me) Objective: Vital Signs Temp Pulse Resp BP Pulse Ox 37.0 C 77 20 129/70 H 94 12/01/16 08:00 12/01/16 08:00 12/01/16 08:00 12/01/16 08:00 12/01/16 08:00 Laboratory Results 12/01/16 03:54 12/01/16 03:54 11/30/16 12/01/16 12/02/16 05:59 05:59 05:59 Intake Total 1250 1350 Output Total 1175 1150 Balance 75 200 PT 14.4 SEC (12.0-15.0) 11/26/16 04:20 INR 1.13 (0.83-1.16) 11/26/16 04:20 - Physical Exam Constitutional: no apparent distress, appears nourished Eyes: PERRL, anicteric sclera Ears, Nose, Mouth, Throat: moist mucous membranes, hearing normal Cardiovascular: regular rate and rhythym, no murmur, rub, or gallop Respiratory: no respiratory distress, No no rales or rhonchi Gastrointestinal: normoactive bowel sounds, soft, non-tender abdomen Genitourinary: No vazquez in urethra Skin: warm, normal color Musculoskeletal: No full muscle strength Neurologic: AAOx3, other (R facial droop and dysarthria unchanged to slightly improved from yesterday pm) ICD10 Worksheet Patient Problems: Problems Problem Status Diagnosed Carotid artery stenosis Acute Meningioma Acute
[2016-12-01] MEDS: CARVEDILOL 6.25 MG TAB PO SCH ×2 (09:40→19:49)
[2016-12-01] MEDS: FUROSEMIDE 40 MG TAB PO SCH (09:40)
[2016-12-01] MEDS: CYANOCOBALAMIN/FA/PYRIDOXINE 1 EACH TAB PO SCH (09:41)
[2016-12-01] MEDS: SOLIFENACIN SUCCINATE 5 MG TAB PO SCH (09:41)
[2016-12-01] MEDS: POTASSIUM CL 10 MEQ TAB PO SCH (09:42)
[2016-12-01] MEDS: guaiFENesin 600 MG TAB.ER PO SCH ×2 (09:42→19:51)
[2016-12-01] MEDS: UBIQUINOL 100 MG PO SCH (09:51)
--- NOTE | 2016-12-01 15:51 | SOAPPROG ---
KARSTEN Progress Note Assessment/Plan: Assessment: 1. Status post carotid endarterectomy. 2. moderate mitral regurgitation. 3. diastolic heart failure. 4. PACs. 5. Hyperlipidemia Patient is rehabilitating well after recent carotid endarterectomy. From a cardiovascular point of view she has maintained sinus rhythm with frequent PACs. Hemodynamics are stable. Will continue current medical therapy with clinical follow-up. Discussed with patient's daughter. Will need to discuss resuming at least 1 antiplatelet agent when clear with surgery. Hyperlipidemia on statin. 12/01/16 15:52 Subjective: Weak and tired. No chest pain, palpitations, syncope, near syncope. Objective: Vital Signs Temp Pulse Resp BP Pulse Ox 36.6 C 99 19 112/88 H 97 12/01/16 12:00 12/01/16 12:00 12/01/16 12:00 12/01/16 12:00 12/01/16 12:00 Laboratory Results 12/01/16 03:54 12/01/16 03:54 11/30/16 12/01/16 12/02/16 05:59 05:59 05:59 Intake Total 1250 1350 540 Output Total 1175 1150 450 Balance 75 200 90 PT 14.4 SEC (12.0-15.0) 11/26/16 04:20 INR 1.13 (0.83-1.16) 11/26/16 04:20 Medications Generic Name Dose Route Start Last Admin Trade Name Freq PRN Reason Stop Dose Admin Pravastatin Sodium 80 mg 11/25/16 21:00 11/30/16 21:04 Pravachol PO 05/24/17 20:59 80 mg HS GORDO Carvedilol 6.25 mg 11/25/16 21:00 12/01/16 09:40 Coreg PO 05/24/17 20:59 6.25 mg BID GORDO Furosemide 40 mg 11/30/16 16:30 12/01/16 09:40 Lasix PO 05/29/17 16:29 Not Given DAILY [facility] Physical Exam - Physical Exam General Appearance: alert EENT: No scleral icterus (R), No scleral icterus (L) Neck: other ( Surgical scar healing well) Respiratory: lungs clear Cardiac/Chest: edema, systolic murmur, irregularly irregular, No gallop, No JVD Abdomen: non-tender, soft Back: Normal inspection Skin: warm/dry Neuro/Psych: other ( asymmetry of the face not felt to be a facial droop but a focal neurologic deficit), No aphasia, No speech abnormalities ICD10 Worksheet Patient Problems: Problems Problem Status Diagnosed Carotid artery stenosis Acute Meningioma Acute Review of Systems - Review of Systems Constitutional: malaise, weakness. denies: chills, fever Respiratory: no symptoms reported Cardiac: no symptoms reported Gastrointestinal/Abdominal: no symptoms reported, other ( no appetite) Genitourinary: no symptoms Musculoskelatal: no symptoms
--- NOTE | 2016-12-01 15:59 | DX ---
Video Esophagram with Speech Therapy Clinical History: 86-year-old female who coughs when eating. Evaluate dysphagia. The patient has a history of a large meningioma, and recently had a left carotid endarterectomy. Technique: This exam was performed in conjunction with Angeli Sommer, the speech therapist, and the pa tient was imaged in the lateral projection while ingesting thin barium, applesauce coated with barium , a cracker coated with barium, and a barium tablet with water. Fluoroscopy Time: 2.6 minutes (exposure dose of 6.40 mGy). Comparison Study: None. Findings: There is some smoothly-contoured although eccentric narrowing of the cervical esophagus at the C5-C6 level, with intermittent retrograde, as well as antegrade motility. ORL consultation may be of benefit. There was some slight delay during oral mastication; however, there is appropriate pr opulsion of the bolus into the hypopharynx. There was some transient hypopharyngeal residue, which c leared with a second swallow. There was no epiglottic undercoating, vestibular penetration, or ana aspiration. There is no nasopharyngeal reflux. Impression: 1. 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 2. There is no evidence of aspiration. Please also refer to the speech therapist's separate assessments and specific recommendations for fol low up. E:TEZ/dexter
[2016-12-01] MEDS: MIRTAZAPINE 15 MG TAB PO SCH (19:49)
[2016-12-01] MEDS: PRAVASTATIN SODIUM 40 MG TAB PO SCH (19:49)
[2016-12-01] MEDS: BENZONATATE 100 MG CAP PO PRN (19:49)
[2016-12-01] MEDS: DONEPEZIL HCL 5 MG TAB PO SCH (19:51)
[2016-12-01] MEDS: PRAMIPEXOLE 0.125 MG TAB PO SCH (19:51)
[2016-12-01] MEDS: SENNOSIDES/DOCUSATE SODIUM TAB PO SCH (19:51)
[2016-12-02] MEDS: DEXAMETHASONE 4 MG TAB PO SCH ×4 (00:37→17:52)
[2016-12-02] MEDS: IPRATROPIUM/ALBUTEROL 3 ML DEYVIAL IH SCH ×4 (05:30→20:43)
[2016-12-02 05:51] LABS: ANION GAP 7 mEq/L (8-16); CALCIUM 9.3 mg/dL (8.5-10.4); CARBON DIOXIDE 23 mEq/l (22-31); CHLORIDE 107 mEq/L (97-110); CREATININE 0.6 mg/dL (0.6-1.0); GLOMERULAR FILTRATION RATE > 60; GLUCOSE 132 mg/dL (70-100); SODIUM 137 mEq/L (134-144)
[2016-12-02] MEDS: UBIQUINOL 100 MG PO SCH (09:16)
[2016-12-02] MEDS: SENNOSIDES/DOCUSATE SODIUM TAB PO SCH ×2 (09:18→21:03)
[2016-12-02] MEDS: CYANOCOBALAMIN/FA/PYRIDOXINE 1 EACH TAB PO SCH (09:18)
[2016-12-02] MEDS: FUROSEMIDE 40 MG TAB PO SCH (09:19)
[2016-12-02] MEDS: BENZONATATE 100 MG CAP PO PRN (09:19)
[2016-12-02] MEDS: POTASSIUM CL 10 MEQ TAB PO SCH (09:19)
[2016-12-02] MEDS: SOLIFENACIN SUCCINATE 5 MG TAB PO SCH (09:20)
[2016-12-02] MEDS: CARVEDILOL 6.25 MG TAB PO SCH ×2 (09:20→21:17)
[2016-12-02] MEDS: guaiFENesin 600 MG TAB.ER PO SCH ×2 (09:20→21:17)
[2016-12-02] MEDS: POLYETHYLENE GLYCOL 3350 17 GM PKT PO SCH (09:20)
--- NOTE | 2016-12-02 10:29 | SOAPPROG ---
SOAP Progress Note Assessment/Plan: Assessment: 86yo s/p left carotid endarterectomy, possible cerebral edema causing left facial droop, cough feels like right knee/leg is little weak when working with PT, back is sore, frustrated with diet offered here, PE awake, alert and oriented x 3, understands had surgery and needs further surgery on other side in few weeks neck left incision clean/dry no significant swelling/edema chest CTA B/L Neuro slight facial droop right side Plan right CEA in 1- 3 weeks when stable 12/02/16 10:28 12/02/16 10:30 Objective: Vital Signs Temp Pulse Resp BP Pulse Ox 36.8 C 82 22 H 127/104 H 95 12/02/16 08:00 12/02/16 08:00 12/02/16 08:00 12/02/16 08:00 12/02/16 08:00 Laboratory Results 12/01/16 03:54 12/02/16 03:36 12/01/16 12/02/16 12/03/16 05:59 05:59 05:59 Intake Total 1350 1400 Output Total 1150 825 Balance 200 575 PT 14.4 SEC (12.0-15.0) 11/26/16 04:20 INR 1.13 (0.83-1.16) 11/26/16 04:20 ICD10 Worksheet Patient Problems: Problems Problem Status Diagnosed Carotid artery stenosis Acute Meningioma Acute
--- NOTE | 2016-12-02 11:16 | HOSPPROG ---
Hospitalist Progress Note Assessment/Plan: 86 yo female, POD 2 s/p left carotid endartectomy 2/3, R sided facial droop today facial droop: L carotid patent after CEA MR chayo no CVA but vasogenic edema around very large meningioma steroids started w improvement will discuss timing, utility of meningioma resection discussed w cardiology esophageal narrowing: not suggestive of malignancy no further eval for now volume overload: IV lasix X 1 fever: workup neg hold abx Severe carotid stenosis- s/p endartectomy; POD #3 as above cough: CT chest (personally reviewed and interpreted) no infiltrates cardiac calcifications noted by Radiology myocardial perfusion scan (reviewed) no inducible ischemia Meningioma- chronic A large, chronic, evidence of more dramatic midline shift -consultation by Dr. Oconnor appreciated - patient and family not interested in any interventions Tachyarrhythmia- on admision; post op in NSR at 70-80's history of CVA with remnant deficits- continue holding Plavix for OR Diet. Cardiac regular Prophylaxis. High risk patient, pharmacologic contraindicated given possible surgery, SCDs Code. Full per patient, her daughter is her MPOA \ Subjective: speech difficulties improved. no events tele (interp by me). case d/w dr pichardo Objective: Vital Signs Temp Pulse Resp BP Pulse Ox 36.8 C 82 22 H 127/104 H 95 12/02/16 08:00 12/02/16 08:00 12/02/16 08:00 12/02/16 08:00 12/02/16 08:00 Laboratory Results 12/01/16 03:54 12/02/16 03:36 12/01/16 12/02/16 12/03/16 05:59 05:59 05:59 Intake Total 1350 1400 Output Total 1150 825 Balance 200 575 PT 14.4 SEC (12.0-15.0) 11/26/16 04:20 INR 1.13 (0.83-1.16) 11/26/16 04:20 - Physical Exam Constitutional: no apparent distress, appears nourished Eyes: PERRL, anicteric sclera Ears, Nose, Mouth, Throat: moist mucous membranes, hearing normal Cardiovascular: regular rate and rhythym, no murmur, rub, or gallop Respiratory: no respiratory distress, no rales or rhonchi Gastrointestinal: normoactive bowel sounds, soft, non-tender abdomen Genitourinary: No vazquez in urethra Skin: warm, normal color Musculoskeletal: full muscle strength Neurologic: AAOx3, other (still w R sided facial droop. no dysarthria, no aphasia) ICD10 Worksheet Patient Problems: Problems Problem Status Diagnosed Carotid artery stenosis Acute Meningioma Acute
[2016-12-02] MEDS ORDERED: PETROLAT,WHT/MIN OIL/SOD CHL 3.5 GM OPHT.OINT EACHEYE PRN (18:19)
[2016-12-02] MEDS: PRAMIPEXOLE 0.125 MG TAB PO SCH (21:16)
[2016-12-02] MEDS: PRAVASTATIN SODIUM 40 MG TAB PO SCH (21:16)
[2016-12-02] MEDS: MIRTAZAPINE 15 MG TAB PO SCH (21:16)
[2016-12-02] MEDS: DONEPEZIL HCL 5 MG TAB PO SCH (21:17)
[2016-12-03] MEDS: DEXAMETHASONE 4 MG TAB PO SCH ×2 (00:18→06:37)
[2016-12-03] MEDS: IPRATROPIUM/ALBUTEROL 3 ML DEYVIAL IH SCH ×2 (05:22→11:04)
[2016-12-03 06:31] LABS: ANION GAP 8 mEq/L (8-16); CARBON DIOXIDE 24 mEq/l (22-31); CHLORIDE 105 mEq/L (97-110); CREATININE 0.7 mg/dL (0.6-1.0); GLOMERULAR FILTRATION RATE > 60; GLUCOSE 112 mg/dL (70-100); POTASSIUM 5.5 mEq/L (3.5-5.2); SODIUM 137 mEq/L (134-144)
[2016-12-03 08:15] VITALS: BP 137/62; PULSE 66; RESP 15; TEMP 98.4
[2016-12-03] MEDS: CYANOCOBALAMIN/FA/PYRIDOXINE 1 EACH TAB PO SCH (09:07)
[2016-12-03] MEDS: SOLIFENACIN SUCCINATE 5 MG TAB PO SCH (09:08)
[2016-12-03] MEDS: guaiFENesin 600 MG TAB.ER PO SCH (09:08)
[2016-12-03] MEDS: FUROSEMIDE 40 MG TAB PO SCH (09:08)
[2016-12-03] MEDS: CARVEDILOL 6.25 MG TAB PO SCH (09:08)
[2016-12-03] MEDS: UBIQUINOL 100 MG PO SCH (09:09)
[2016-12-03] MEDS: POTASSIUM CL 10 MEQ TAB PO SCH (09:10)
[2016-12-03] MEDS: POLYETHYLENE GLYCOL 3350 17 GM PKT PO SCH (09:10)
--- NOTE | 2016-12-03 09:12 | NEUROPROG ---
Assessment: At this point, we are dealing with 2 principal problems. The 1st is left hemisphere meningioma with increasing, gradual edema and left to right shift. This probably accounts for the neurologic deficit she experiences since we did not see evidence of stroke on the left following the left carotid endarterectomy. The right carotid stenosis is the 2nd principal issue that needs attention. I believe that removal of the plaque prior to decompressive surgery for the meningioma would be reasonable. She seems to have been improved by doing Decadron, this can be continued as an outpatient at a dose of about 4 mg 3 times per day and follow up with Neurosurgery as well as myself. Dr. Matta and Dr. Oconnor will make decisions on surgical time frame and the exact approach. She has other issues of cognitive impairment and restless leg syndrome that I talked about with her daughter today we can address these as an outpatient. Subjective: The patient has been started on dexamethasone. This has improved her speech skills significantly. She still has some relative right-sided weakness on top of the generalized weakness and deconditioning. She does not have any complaints of pain or headache right now. Her daughter says that her mother has been clearly improved since starting the steroids. She found evidence from old report that the current degree of shift is at least a few mm greater that previously was last year. We do not know definitively about whether the tumor mass itself has changed in the left hemisphere. The patient is not describing any severe symptoms. She does feels mildly weak and more unsteady. She denies nausea or vomiting. No chest pain or shortness of breath. Objective: Vital Signs Temp Pulse Resp BP Pulse Ox 36.9 C 66 15 137/62 H 99 12/03/16 08:13 12/03/16 08:13 12/03/16 08:13 12/03/16 08:13 12/03/16 08:13 Laboratory Results 12/01/16 03:54 12/03/16 03:32 12/02/16 12/03/16 12/04/16 05:59 05:59 05:59 Intake Total 1400 940 Output Total 825 600 Balance 575 340 PT 14.4 SEC (12.0-15.0) 11/26/16 04:20 INR 1.13 (0.83-1.16) 11/26/16 04:20 She is just waking up. She has some left conjunctivitis. She is oriented to her location and general situation. Recent memory is decreased but remote memory is preserved. Concentration and attention are preserved but diminished. There is no facial asymmetry. There is mild right-sided weakness in the 4/5 range. There is also generalized weakness. She still does not have completely normal flow of language. Allergies/Adverse Reactions: No Known Allergies Allergy (Unverified 11/25/16 16:49)
[2016-12-03] MEDS: SENNOSIDES/DOCUSATE SODIUM TAB PO SCH (09:19)
--- NOTE | 2016-12-03 10:04 | HOSPPROG ---
Hospitalist Progress Note Assessment/Plan: 86 yo female, POD 2 s/p left carotid endartectomy 2/3, R sided facial droop today facial droop: L carotid patent after CEA MR w no CVA but vasogenic edema around very large meningioma steroids started w improvement will discuss timing, utility of meningioma resection discussed w cardiology esophageal narrowing: not suggestive of malignancy no further eval for now volume overload: IV lasix X 1 fever: workup neg hold abx Severe carotid stenosis- s/p endartectomy; POD #3 as above cough: CT chest (personally reviewed and interpreted) no infiltrates cardiac calcifications noted by Radiology myocardial perfusion scan (reviewed) no inducible ischemia Meningioma- chronic A large, chronic, evidence of more dramatic midline shift -consultation by Dr. Oconnor appreciated - patient and family not interested in any interventions Tachyarrhythmia- on admision; post op in NSR at 70-80's history of CVA with remnant deficits- continue holding Plavix for OR Diet. Cardiac regular Prophylaxis. High risk patient, pharmacologic contraindicated given possible surgery, SCDs Code. Full per patient, her daughter is her MPOA \ dispo: to snf today > 30 minutes on dc Subjective: continued improvement w speech. case d/w marie valentin and rj Objective: Vital Signs Temp Pulse Resp BP Pulse Ox 36.9 C 66 15 137/62 H 99 12/03/16 08:13 12/03/16 08:13 12/03/16 08:13 12/03/16 08:13 12/03/16 08:13 Laboratory Results 12/01/16 03:54 12/03/16 03:32 12/02/16 12/03/16 12/04/16 05:59 05:59 05:59 Intake Total 1400 940 Output Total 825 600 Balance 575 340 PT 14.4 SEC (12.0-15.0) 11/26/16 04:20 INR 1.13 (0.83-1.16) 11/26/16 04:20 - Physical Exam Constitutional: no apparent distress, appears nourished Eyes: PERRL, anicteric sclera Ears, Nose, Mouth, Throat: moist mucous membranes, hearing normal Cardiovascular: regular rate and rhythym, no murmur, rub, or gallop Respiratory: no respiratory distress, no rales or rhonchi Gastrointestinal: normoactive bowel sounds, soft, non-tender abdomen Genitourinary: No vazquez in urethra Skin: warm Musculoskeletal: full muscle strength Neurologic: AAOx3, other (speech normal) ICD10 Worksheet Patient Problems: Problems Problem Status Diagnosed Carotid artery stenosis Acute Meningioma Acute
--- NOTE | 2016-12-03 10:08 | PDIAF ---
- Diagnosis Diagnosis: carotid stenosis, large meningioma Code Status: Full Code - Medication Management Discharge Medications: Medications to Continue on Transfer Acetaminophen [Tylenol ES 500 mg (*)] 1,000 mg PO Q8H PRN 11/25/16 [Last Taken Unknown] Carvedilol 6.25 mg PO BID 11/25/16 [Last Taken 11/25/16] Clopidogrel Bisulfate [Plavix (*)] 75 mg PO DAILY 11/25/16 [Last Taken 11/25/16] Cyanocobalamin/FA/Pyridoxine [FOLBEE TABLET] 1 each PO DAILY 11/25/16 [Last Taken Unknown] Donepezil HCl [Aricept] 10 mg PO HS 11/25/16 [Last Taken Unknown] Estradiol [Estrace] 0.5 g VG TU 11/25/16 [Last Taken 11/24/16] Furosemide 40 mg PO DAILY 11/25/16 [Last Taken 11/25/16] Mirtazapine [Remeron] 15 mg PO HS 11/25/16 [Last Taken Unknown] Paroxetine HCl 30 mg PO DAILY 11/25/16 [Last Taken 11/25/16] Pramipexole Di-HCl [Mirapex 0.125 mg (*)] 0.125 mg PO HS 11/25/16 [Last Taken Unknown] Pravastatin Sodium [Pravachol] 80 mg PO HS 11/25/16 [Last Taken Unknown] Solifenacin Succinate [Vesicare] 10 mg PO DAILY 11/25/16 [Last Taken Unknown] Herbals/Supplements -Info Only 1 ea PO DAILY 11/27/16 [Last Taken Unknown] Dexamethasone 4 mg PO TID #0 tablet 12/03/16 [Last Taken Unknown] Polyethylene Glycol 3350 [Miralax 17 gm (*)] 17 gm PO DAILY #0 pkt 12/03/16 [ Last Taken Unknown] Potassium Chloride [Klor-Con 10] 10 meq PO DAILY #0 tablet.er 12/03/16 [Last Taken Unknown] Discharge Medications: Refer to the Discharge Home Medication list for PRN reason. - Orders Services needed: Registered Nurse, Physical Therapy, Occupational Therapy, Speech Language Pathologist Diet Recommendation: no restrictions on diet Diet Texture: Regular Texture Diet, Thin Liquids, Meds Whole in Puree - Follow Up Care Current Providers and Referrals: Yang Matta MD [Medical Doctor] - follow up in 1 week Papa Guerra MD [Primary Care Provider] - Evgeny King MD [Medical Doctor] -
[2016-12-03 10:14] VITALS: O2SAT 93
--- NOTE | 2016-12-03 10:40 | GDS ---
[f rep st] DISCHARGE SUMMARY DISCHARGE DIAGNOSES: 1. Bilateral severe carotid stenosis. 2. Large meningioma in the left frontoparietal region with vasogenic edema. 3. Systolic heart failure without exacerbation. 4. Word-finding difficulties and dysarthria, now resolved, attributed to edema from her meningioma. 5. Restless legs. 6. Depression. HOSPITAL COURSE: Please see admission history and physical. Patient was admitted on November 25 owing the results of a CT scan showing severe carotid artery stenosis and meningioma with left midlin e shift. She underwent a Lexiscan showing no scintigraphic evidence of myocardial ischemia. She und erwent right-sided carotid endarterectomy on the . On the she had word finding difficulty. S troke alert was called. There was no evidence of stroke or bleed with subsequent MRI. Her word-find ing difficulties were attributed to the vasogenic edema around her meningioma. She was started on st eroids with improvement. She was seen and discussed with Neurosurgery and General Surgery and, at th is point in time, the plan is to discharge to [facility]. Return at Dr. Matta discretion for right-s ided CEA and then thereafter resection of her meningioma. Her daughter, who is a physician, is at e bedside and is in part of the plan. On the day of discharge, patient is hyperkalemic at 5.5, without change on telemetry. She does take supplemental potassium, this will be held for 4 days and then restarted. /[id number]/MODL
== END 2016-12-03 11:15 | DRG 37 ==
LOC: INTOOBSV 16:08 → F2W 17:36 → OBSVTOIN 11-26 15:16 → F2N 11-28 08:08 → F2W 11-29 03:40
PROVIDERS: ADMIT Internal Medicine; ATTEND Internal Medicine
PROC: 03UJ0JZ Supplement Left Common Carotid Artery with Synthetic Substitute, Open Approach (ICD-10-PCS; principal; 2016-11-28 08:00)
PROC: 03CL0ZZ Extirpation of Matter from Left Internal Carotid Artery, Open Approach (ICD-10-PCS; principal; 2016-11-28 08:00)
DX: I65.23 Occlusion and stenosis of bilateral carotid arteries (principal); I65.03 Occlusion and stenosis of bilateral vertebral arteries; D32.0 Benign neoplasm of cerebral meninges; G93.6 Cerebral edema; I50.20 Unspecified systolic (congestive) heart failure; R49.0 Dysphonia; G25.81 Restless legs syndrome; I69.351 Hemiplegia and hemiparesis following cerebral infarction affecting right dominant side
CPT/HCPCS: 92610-GN; 92611-GN; 97116-GP; 97162-GP; 97164-GP; 97165-GO; 97530-GP; 97535-GO; A9500; C1768; G0378; G8978-GP-CJ; G8978-GP-CK; G8979-GP-CI; G8987-GO-CI; G8988-GO-CI; G8996-GN-CI; G8996-GN-CJ; G8997-GN-CI; G8998-GN-CJ; J0690; J1100; J1265; J1644; J2001; J2250; J2370; J2704; J2720; J2785; J3010; P9041; Q9967

== ENCOUNTER → 2016-12-21 | Outpatient (CLI) | payer OTHER, MEDICARE | LOC: BHFA 09:45 | PROVIDERS: ATTEND Internal Medicine Interventional Cardiology | DX: I50.30 Unspecified diastolic (congestive) heart failure (principal); I34.0 Nonrheumatic mitral (valve) insufficiency; I11.9 Hypertensive heart disease without heart failure; I65.21 Occlusion and stenosis of right carotid artery; D32.9 Benign neoplasm of meninges, unspecified ==

== ENCOUNTER 2017-01-01 05:31 | Inpatient (IN) | payer OTHER, MEDICARE ==
[2017-01-01] MEDS ORDERED: ceFAZolin 2 GM/DEXTROSE 100 ML IV ONE (06:00)
[2017-01-01] MEDS ORDERED: LIDOCAINE 1% 2 ML INJ ONE (06:24)
[2017-01-01] MEDS ORDERED: SKIN ADHESIVE (DERMABOND) 1 EACH TP ONE (06:39)
[2017-01-01] MEDS ORDERED: BUPIVACAINE 0.5% 30 ML SDV ONE (06:39)
[2017-01-01] MEDS ORDERED: PROTAMINE SULFATE 50 MG/5 ML VIAL IVP ONE (06:39)
[2017-01-01] MEDS ORDERED: THROMBIN (RECOMBINANT) 20,000 UNIT SPRAY TP ONE (06:39)
[2017-01-01] MEDS ORDERED: LIDOCAINE 1% 5 ML SDV ID PRN (06:45)
[2017-01-01] MEDS ORDERED: LR 1,000 ML IV ONE (06:45)
[2017-01-01 06:53] LABS: % IMMATURE GRANULYOCYTES 2.3 % (0.0-1.1); ABSOLUTE IMMATURE GRANULOCYTES 0.25 10^3/uL (0.00-0.10); ADD DIFF? NO; ADD MORPH? NO; ADD SCAN? NO; ATYPICAL LYMPHOCYTE FLAG 0 (0-99); FRAGMENT RBC FLAG 0 (0-99); HEMOGLOBIN 10.4 g/dL (12.6-16.3); LEFT SHIFT FLG 20 (0-99); LIPEMIA HEMOLYSIS FLAG 80 (0-99); MEAN CELL HEMOGLOBIN 31.9 pg (27.9-34.1); MEAN CELL HEMOGLOBIN CONCENTR. 33.5 g/dL (32.4-36.7); MEAN CELL VOLUME 95.1 fL (81.5-99.8); MEAN PLATELET VOLUME 10.3 fL (8.7-11.7); PLATELET CLUMPS FLAG 0 (0-99); PLATELET COUNT 310 10^3/uL (150-400); RED BLOOD CELL COUNT 3.26 10^6/uL (4.18-5.33)
[2017-01-01] MEDS ORDERED: HYDROCODONE/APAP 5/325 TAB PO PRN (06:56)
[2017-01-01] MEDS ORDERED: ACETAMINOPHEN 325 MG TAB PO PRN (06:56)
[2017-01-01] MEDS ORDERED: ONDANSETRON 4 MG/2 ML VIAL IVP PRN (06:56)
[2017-01-01] MEDS ORDERED: HYDROmorphONE/DILAUDID 1 MG/ML SYR IVP PRN (06:56)
[2017-01-01] MEDS ORDERED: D5W 1/2 NS W/ 20 KCl/L 1,000 ML IV SCH (07:00)
[2017-01-01] MEDS ORDERED: ENALAPRILAT DIHYDRATE 1.25 MG/ML VIAL IVP PRN (07:00)
[2017-01-01 07:07] LABS: ANION GAP 10 mEq/L (8-16); CALCIUM 8.9 mg/dL (8.5-10.4); CARBON DIOXIDE 24 mEq/l (22-31); CHLORIDE 106 mEq/L (97-110); CREATININE 0.8 mg/dL (0.6-1.0); GLOMERULAR FILTRATION RATE > 60; GLUCOSE 118 mg/dL (70-100); POTASSIUM 3.3 mEq/L (3.5-5.2); SODIUM 140 mEq/L (134-144)
[2017-01-01] MEDS ORDERED: MIDAZOLAM 2 MG/2 ML VIAL ONE (07:09)
[2017-01-01] MEDS ORDERED: ROCURONIUM 50 MG/5 ML VIAL ONE (07:13)
[2017-01-01] MEDS ORDERED: fentaNYL 250 MCG/5 ML INJ ONE (07:13)
[2017-01-01] MEDS ORDERED: DEXAMETHASONE 4 MG/ML VIAL ONE (07:13)
[2017-01-01] MEDS ORDERED: LIDOCAINE 2% 100 MG/5 ML SYR ONE (07:13)
[2017-01-01] MEDS ORDERED: ONDANSETRON 4 MG/2 ML VIAL ONE (07:13)
[2017-01-01] MEDS ORDERED: PROPOFOL 200 MG/20 ML VIAL ONE (07:14)
[2017-01-01] MEDS ORDERED: HEPARIN 10,000 UNIT/10 ML MDV ONE (07:19)
[2017-01-01] MEDS ORDERED: PHENYLEPHRINE HCL 100 MCG/ML SYR ONE (07:26)
[2017-01-01] MEDS ORDERED: epHEDrine SULFATE 10 MG/ML SYR ONE ×2 (08:33→08:44)
[2017-01-01] MEDS ORDERED: PHENYLEPHRINE 10 MG/ML SDV ONE (08:45)
[2017-01-01] MEDS ORDERED: NON-FORMULARY NEW DRUG (Potassium Chloride [Klor-Con 10] 10 MEQ) PO SCH (09:00)
[2017-01-01] MEDS ORDERED: NON-FORMULARY NEW DRUG (Solifenacin Succinate [Vesicare] 10 MG) PO SCH (09:00)
--- NOTE | 2017-01-01 09:26 | POSTOPPROG ---
Post Op Note Date of Operation: 01/01/17 Surgeon: Yang Matta Publicist: Clark Dover Anesthesiologist: Dr Tejada Anesthesia: GET(General Endotracheal) Pre-op Diagnosis: right carotid stenosis Post-op Diagnosis: same Indication: same Procedure: R CEA, r cervical lymph node bx Findings: plaque Inf/Abcess present in the surg proc area at time of surgery?: No Depth: Deep Incisional (Fascial) EBL: 50-100 Specimen(s): plaque
[2017-01-01] MEDS ORDERED: SUGAMMADEX SODIUM 200 MG/2 ML VIAL IVP ONE (09:28)
[2017-01-01] MEDS: CARVEDILOL 6.25 MG TAB PO SCH ×2 (10:18→20:23)
[2017-01-01] MEDS: POTASSIUM CL 10 MEQ TAB PO SCH (10:19)
[2017-01-01] MEDS: POLYETHYLENE GLYCOL 3350 17 GM PKT PO SCH (10:19)
[2017-01-01] MEDS: SOLIFENACIN SUCCINATE 5 MG TAB PO SCH ×2 (11:35→11:38)
[2017-01-01] MEDS ORDERED: NS 500 ML IV ONE (13:35)
[2017-01-01] MEDS ORDERED: ALBUMIN 5% 500 ML BOTTLE IV ONE (14:19)
[2017-01-01] MEDS: ceFAZolin 2 GM/DEXTROSE 100 ML IV SCH ×2 (14:21→22:17)
[2017-01-01] MEDS ORDERED: ALBUMIN 5% 500 ML IV ONE (14:30)
[2017-01-01] MEDS ORDERED: NS W/ 20 KCl/L 1,000 ML IV SCH (14:30)
--- NOTE | 2017-01-01 19:22 | GCON ---
[f rep st] CONSULTATION PULMONARY CRITICAL CARE CONSULTATION DATE OF CONSULTATION: 01/01/2017 REASON FOR CONSULTATION: Hypotension following carotid surgery. HISTORY OF PRESENT ILLNESS: The patient is a pleasant 86-year-old who underwent right carotid surge ry for cerebral vascular disease earlier today. She was returned to the intensive care unit. Blood pressures have been low, 85/40 at times. She was given saline and Plasmanate with improvement. Jerry robles is otherwise doing well. She is on only 1 L of oxygen. She denies any significant pain. She has a history of known carotid artery disease. She has had a previous left carotid endarterectomy whic h was also associated with hypotension. She had a CVA in 2005, on the left side. She also has a hi story of a 5 cm meningioma on the left side in the frontal area. She is currently resting comfortably in the intensive care unit. PAST MEDICAL HISTORY: Remarkable for previous stroke, almost fully recovered, on the left side. Jerry robles does have some right-sided weakness and uses a walker secondary to this. She has a history of dep ression and mild dementia, severe cerebral vascular disease, systemic hypertension, and hyperlipidem ia. There is a history of congestive heart failure in the past. ALLERGIES: None known. SOCIAL HISTORY: The patient has a very supportive family. Alcohol is negative. She has smoked cig arettes in the past. One of her daughters is a physician. FAMILY HISTORY: Noncontributory. REVIEW OF SYSTEMS: A 10-point review of systems is negative. PHYSICAL EXAMINATION: GENERAL: Reveals an elderly woman who is sitting up in bed eating pie. She has no complaints. VITAL SIGNS: Blood pressure currently 105/45, heart rate 75 and regular with si nus rhythm on the monitor. Occasional ectopy is noted. On 1 L, saturations are 94%. Respiratory r ate is approximately 20. She is afebrile. HEENT: Unremarkable for lymphadenopathy or thyromegaly. There is a dressing over the right neck without significant ecchymoses seen. Mucous membranes are moist. There is no cough with eating. CHEST: Clear bilaterally. Breath sounds are diminished at the bases. HEART: Regular rate and rhythm. There is a systolic murmur. ABDOMEN: Soft, nontende r. Bowel sounds are present. EXTREMITIES: Remarkable for trace plus edema. : No Park cathete r is in place. NEUROLOGIC: Grossly nonfocal. She moves all extremities, perhaps mildly less on th e right than the left. There is perhaps a slight left facial droop. LABORATORY DATA: White blood cell count is 10,900, hematocrit 31, platelets are normal. PT and PTT were normal on admission. Sodium is 140, potassium 3.3 this morning. Basic metabolic panel is ot erwise normal. ASSESSMENT: 1. Postoperative hypotension. Blood pressures are relatively low postoperatively. She was given f luids with a good response and can be given more if needed. She was slightly hypotensive and requir ed dopamine following her carotid endarterectomy a month ago. She does have a history of heart fail ure, so fluids need to be used somewhat judiciously. 2. Status post right carotid endarterectomy. 3. History of cerebral vascular disease. 4. History of other medical problems as outlined above in the past medical history. 5. Hypokalemia. 6. DVT prophylaxis: SCDs. 7. GI prophylaxis: None. Eating. PLAN AND RECOMMENDATIONS: The patient will be kept in the intensive care unit at least overnight. Intravenous fluids and Plasmanate can be given as needed. Dopamine will be considered if she does n ot respond to modest fluids. No changes in her other medical regimen will be made at this time. Further plans and recommendations will be made based on her progress over the next 12-24 hours. /[id number]/MODL
[2017-01-01] MEDS: PRAVASTATIN SODIUM 40 MG TAB PO SCH (20:27)
[2017-01-01] MEDS: DONEPEZIL HCL 5 MG TAB PO SCH (20:28)
[2017-01-01] MEDS: PRAMIPEXOLE 0.125 MG TAB PO SCH (20:28)
[2017-01-01] MEDS ORDERED: NON-FORMULARY NEW DRUG (Pravastatin Sodium [Pravachol] 80 MG) PO SCH (21:00)
[2017-01-01] MEDS ORDERED: NON-FORMULARY NEW DRUG (Donepezil Hcl [Aricept] 10 MG) PO SCH (21:00)
[2017-01-02 06:06] LABS: % IMMATURE GRANULYOCYTES 1.4 % (0.0-1.1); ABSOLUTE IMMATURE GRANULOCYTES 0.17 10^3/uL (0.00-0.10); ADD DIFF? NO; ADD MORPH? NO; ADD SCAN? NO; ATYPICAL LYMPHOCYTE FLAG 20 (0-99); FRAGMENT RBC FLAG 0 (0-99); HEMATOCRIT 25.9 % (38.0-47.0); HEMOGLOBIN 8.5 g/dL (12.6-16.3); LEFT SHIFT FLG 20 (0-99); LIPEMIA HEMOLYSIS FLAG 80 (0-99); MEAN CELL HEMOGLOBIN 32.2 pg (27.9-34.1); MEAN CELL HEMOGLOBIN CONCENTR. 32.8 g/dL (32.4-36.7); MEAN CELL VOLUME 98.1 fL (81.5-99.8); MEAN PLATELET VOLUME 10.1 fL (8.7-11.7); PLATELET CLUMPS FLAG 0 (0-99); PLATELET COUNT 272 10^3/uL (150-400); RED BLOOD CELL COUNT 2.64 10^6/uL (4.18-5.33)
[2017-01-02 06:23] LABS: ANION GAP 9 mEq/L (8-16); CALCIUM 8.8 mg/dL (8.5-10.4); CARBON DIOXIDE 22 mEq/l (22-31); CHLORIDE 108 mEq/L (97-110); CREATININE 0.6 mg/dL (0.6-1.0); GLOMERULAR FILTRATION RATE > 60; GLUCOSE 96 mg/dL (70-100); POTASSIUM 4.2 mEq/L (3.5-5.2); SODIUM 139 mEq/L (134-144)
--- NOTE | 2017-01-02 07:51 | SOAPPROG ---
SOAP Progress Note Assessment/Plan: Assessment: alert/ doing well sp rt CEA/ neuro intact/ wound ok/ afebrile Plan:med-surg transfer 01/02/17 07:49 Objective: Vital Signs Temp Pulse Resp BP Pulse Ox 36.9 C 63 16 138/53 H 94 01/02/17 05:54 01/02/17 05:54 01/02/17 05:54 01/02/17 05:54 01/02/17 05:54 Laboratory Results 01/02/17 05:50 01/02/17 05:50 01/01/17 01/02/17 01/03/17 05:59 05:59 06:59 Intake Total 6204 Output Total 1100 Balance 5104 ICD10 Worksheet Patient Problems: Problems Problem Status Onset Carotid artery stenosis Acute Meningioma Acute
[2017-01-02] MEDS: POLYETHYLENE GLYCOL 3350 17 GM PKT PO SCH (09:20)
[2017-01-02] MEDS: CARVEDILOL 6.25 MG TAB PO SCH ×2 (09:20→19:42)
[2017-01-02] MEDS: POTASSIUM CL 10 MEQ TAB PO SCH (09:20)
[2017-01-02] MEDS: SOLIFENACIN SUCCINATE 5 MG TAB PO SCH (09:22)
--- NOTE | 2017-01-02 14:42 | PDINTPN ---
Fire And Explosion Investigator Progress Note Assessment/Plan: Assessment: Status post carotid end arterectomy: Doing well. Hypotension: Resolved. Never needed dopamine. Acute blood-loss anemia. No evidence of ongoing bleeding. Secondary to equilibration. Follow-up. Metabolic: No issues. DVT prophylaxis: SCDs Plan: Continue present care. Can transfer to a medical-surgical bed from my standpoint. Plavix per Dr. Matta. Decrease IV fluids/buff cap. Follow blood pressures. Subjective: Feels better, doing okay. Denies significant pain Objective: Vital Signs Temp Pulse Resp BP Pulse Ox 36.9 C 58 L 16 112/45 L 97 01/02/17 08:00 01/02/17 12:00 01/02/17 12:00 01/02/17 12:00 01/02/17 12:00 Laboratory Results 01/02/17 05:50 01/02/17 05:50 01/01/17 01/02/17 01/03/17 05:59 05:59 06:59 Intake Total 6204 Output Total 1100 Balance 5104 Physical Exam - Physical Exam General Appearance: alert, no apparent distress EENT: other (On room air) Neck: normal inspection Respiratory: lungs clear, decreased breath sounds (At bases) Cardiac/Chest: regular rate, rhythm Abdomen: normal bowel sounds, non-tender, soft Skin: warm/dry, pallor Extremities: No pedal edema Neuro/Psych: no motor/sensory deficits, No cognition abnormalities ICD10 Worksheet Patient Problems: Problems Problem Status Onset Carotid artery stenosis Acute Meningioma Acute
[2017-01-02] MEDS ORDERED: FUROSEMIDE 20 MG/2 ML VIAL IVP ONE (17:30)
[2017-01-02] MEDS: MIRTAZAPINE 15 MG TAB PO SCH (19:42)
[2017-01-02] MEDS: PRAMIPEXOLE 0.125 MG TAB PO SCH (19:42)
[2017-01-02] MEDS: DONEPEZIL HCL 5 MG TAB PO SCH (19:43)
[2017-01-02] MEDS: PRAVASTATIN SODIUM 40 MG TAB PO SCH (19:44)
[2017-01-03 05:55] LABS: % IMMATURE GRANULYOCYTES 1.7 % (0.0-1.1); ABSOLUTE IMMATURE GRANULOCYTES 0.19 10^3/uL (0.00-0.10); ADD DIFF? NO; ADD MORPH? NO; ADD SCAN? NO; ATYPICAL LYMPHOCYTE FLAG 0 (0-99); FRAGMENT RBC FLAG 0 (0-99); HEMATOCRIT 26.7 % (38.0-47.0); HEMOGLOBIN 8.5 g/dL (12.6-16.3); LEFT SHIFT FLG 20 (0-99); LIPEMIA HEMOLYSIS FLAG 80 (0-99); MEAN CELL HEMOGLOBIN 31.1 pg (27.9-34.1); MEAN CELL HEMOGLOBIN CONCENTR. 31.8 g/dL (32.4-36.7); MEAN CELL VOLUME 97.8 fL (81.5-99.8); MEAN PLATELET VOLUME 10.4 fL (8.7-11.7); PLATELET CLUMPS FLAG 0 (0-99); PLATELET COUNT 308 10^3/uL (150-400); RED BLOOD CELL COUNT 2.73 10^6/uL (4.18-5.33); RED CELL DISTRIBUTION WIDTH 15.3 % (11.5-15.2)
[2017-01-03 06:21] LABS: ANION GAP 8 mEq/L (8-16); CALCIUM 8.9 mg/dL (8.5-10.4); CARBON DIOXIDE 21 mEq/l (22-31); CHLORIDE 107 mEq/L (97-110); CREATININE 0.7 mg/dL (0.6-1.0); GLOMERULAR FILTRATION RATE > 60; GLUCOSE 90 mg/dL (70-100); MAGNESIUM 1.7 mg/dL (1.6-2.3); POTASSIUM 4.3 mEq/L (3.5-5.2); SODIUM 136 mEq/L (134-144)
[2017-01-03] MEDS: CARVEDILOL 6.25 MG TAB PO SCH ×2 (08:32→20:34)
[2017-01-03] MEDS: POLYETHYLENE GLYCOL 3350 17 GM PKT PO SCH (08:33)
[2017-01-03] MEDS: SOLIFENACIN SUCCINATE 5 MG TAB PO SCH (08:33)
[2017-01-03] MEDS: POTASSIUM CL 10 MEQ TAB PO SCH (08:33)
--- NOTE | 2017-01-03 10:16 | GOP ---
[f rep st] OPERATIVE REPORT DATE OF OPERATION: 01/01/2017 SURGEON: Yang Matta MD APPARATUS CLEANER: MAURICE Buchanan ANESTHESIOLOGIST: Dr. Tejada. PREOPERATIVE DIAGNOSIS: Critical right carotid stenosis. POSTOPERATIVE DIAGNOSIS: Critical right carotid stenosis. PROCEDURE PERFORMED: Right carotid endarterectomy and right cervical lymph node biopsy. FINDINGS: Patient was found to have a 1.5 cm jugulodigastric node which appeared to be benign. She had a very tight calcified 95% carotid stenosis at the origin of the internal carotid artery. She had no EEG changes. She had adequate backflow from her carotid stump. ESTIMATED BLOOD LOSS: Less than 25 cc. DESCRIPTION OF PROCEDURE: Patient was taken to the operating room, where she received satisfactory general endotracheal anesthesia by Dr. Tejada. Placed in the supine position, prepped and draped in the usual sterile fashion. She was systemically heparinized prior to induction of anesthesia. I ncision was made along the anterior border of the sternocleidomastoid muscle. Dissection was alli d down through the platysma and superficial fascia. Common facial vein was identified. It was mult iply ligated and divided, exposing the carotid arterial tree, which was dissected free and controlle d with vessel loops for the internal and external carotid arteries and the common carotid artery, as well as the inferior thyroid artery. After adequate exposure was achieved, the patient was given a dditional heparin. After adequate time, the vessels were occluded. Expeditious endarterectomy was performed, removing the plaque. Shunt was then placed. There were no EEG changes during any of thi s time and flow was reestablished. The arteriotomy was then closed with a Dacron patch and a Hemash ield 7 suture. The shunt was removed and the final portion of the patch was completed, and flow was first established through the external carotid and then through the internal carotid. Suture line appeared to be hemostatic. There were, again, no major EEG changes. The heparin was reversed with protamine. Hemostasis was thoroughly obtained. The wound was sprayed with some topical thrombin an d then closed in layers using 2-0 Vicryl for the fascia, 3-0 Vicryl for the subcu and platysma, and a 4-0 Monocryl subcuticular stitch for the skin. The superficial layers were infiltrated with 0.5% Marcaine. She tolerated the procedure well. She was taken to the recovery room in good condition. COMPLICATIONS: There were no complications. /[id number]/MODL
[2017-01-03] MEDS: FUROSEMIDE 20 MG TAB PO SCH (12:38)
--- NOTE | 2017-01-03 15:56 | SOAPPROG ---
SOAP Progress Note Assessment/Plan: Assessment/Plan: 86 Y F s/p R CEA, POD#2. Wounds intact. BP stable. Neuro exam stable although family noticing some confusion--unchanged since yesterday. Continue gentle diuresis with PO lasix today. Avoid narcotics and benzos if possible. D/w'ed RN. Dispo: possibly home tomorrow pending course. S: No complaint. Wants to go home (but family not wanting this yet). No new weakness or vision change. Ate well yesterday but not hungry this am. O: alert, nad inc cdi, moderate swelling, no bruits. tongue midline, pupils equal and round, slight lower lip droop--stable. ctab anteriroly rrr abd soft ext maex4. 5/5 comber operator strength and plantar and dorsiflexion 01/03/17 15:52 Objective: Vital Signs Temp Pulse Resp BP Pulse Ox 37.2 C 66 16 127/72 H 97 01/03/17 11:18 01/03/17 11:18 01/03/17 11:18 01/03/17 11:18 01/03/17 11:18 Laboratory Results 01/03/17 04:28 01/03/17 04:28 01/02/17 01/03/17 01/04/17 04:59 05:59 05:59 Intake Total Output Total 200 Balance -200 ICD10 Worksheet Patient Problems: Problems Problem Status Onset Carotid artery stenosis Acute Meningioma Acute
[2017-01-03] MEDS ORDERED: DEXAMETHASONE 4 MG/ML VIAL IVP ONE (17:30)
--- NOTE | 2017-01-03 20:15 | SOAPPROG ---
SOAP Progress Note Assessment/Plan: Assessment: alert/ doing well sp rt CEA/ neuro intact/ wound ok/ afebrile Plan:med-surg transfer 01/02/17 07:49 01/03/17 20:13 DEVELOPED SOME NEW APHASIA TODAY DESPITE OTHERWISE STABLE NEURO EXAM/ MRI SHOWS SMALL 4MM RT LOBE INFARCT/ HAVE GIVEN DECADRON/ NEUROLOGY TO SEE IN AM Objective: Vital Signs Temp Pulse Resp BP Pulse Ox 36.8 C 72 16 143/86 H 98 01/03/17 16:23 01/03/17 16:23 01/03/17 16:23 01/03/17 16:23 01/03/17 16:23 Laboratory Results 01/03/17 04:28 01/03/17 04:28 01/02/17 01/03/17 01/04/17 04:59 05:59 05:59 Intake Total 400 Output Total 200 Balance 200 ICD10 Worksheet Patient Problems: Problems Problem Status Onset Carotid artery stenosis Acute Meningioma Acute
[2017-01-03] MEDS: PRAMIPEXOLE 0.125 MG TAB PO SCH (20:33)
[2017-01-03] MEDS: MIRTAZAPINE 15 MG TAB PO SCH (20:33)
[2017-01-03] MEDS: PRAVASTATIN SODIUM 40 MG TAB PO SCH (20:33)
[2017-01-03] MEDS: DONEPEZIL HCL 5 MG TAB PO SCH (20:34)
[2017-01-03] MEDS: DEXAMETHASONE 4 MG/ML VIAL IVP SCH (23:33)
[2017-01-04] MEDS: DEXAMETHASONE 4 MG/ML VIAL IVP SCH (05:43)
--- NOTE | 2017-01-04 08:54 | GCON ---
[f rep st] CONSULTATION ADDENDUM. The NIH stroke scale is 3. /[id number]/MODL
--- NOTE | 2017-01-04 09:19 | GCON ---
[f rep st] CONSULTATION NEUROLOGIC CONSULTATION REFERRING PHYSICIAN: Yang Matta MD HISTORY: The patient is an 86-year-old woman who I know from previous hospitalization when she has had left carotid endarterectomy and has a large left meningioma with left to right shift. She has a right carotid stenosis for which she underwent carotid endarterectomy on January 01. She had an unre markable postoperative course, although started to have some changes yesterday where her mental stat e seemed to be a little decline and she had subsequent brain MRI showing that she has had a very sma ll acute infarction in the right middle cerebral artery territory in the deep frontal lobe slightly posterior. She has not developed any new left-sided symptoms. At her baseline, she has some mild t rouble with language at times, for which we had previously treated with Decadron and there was some improvement, but also very subtle changes of aphasia preoperatively as well. Postoperatively, she h as had some increase in some of the verbal expression problems. She has the baseline right-sided we akness for which there still seems to be some right-sided weakness. The patient denies any headache or fever, chills, nausea, vomiting, or diarrhea. No chest pain, pal pitations, or shortness of breath. Symptoms are more subtle than the patient is aware of, but this has been noted by family, prompting more thorough evaluations over the last 24 hours. REVIEW OF SYSTEMS: Otherwise, a 10-point review of systems was completed and unremarkable except fo r that noted above. There did not seem to be any obvious exacerbating or alleviating factors for th mike symptoms which are persisting. PAST MEDICAL HISTORY: Notable for the prior left carotid endarterectomy as well as known large left hemisphere meningioma. During the hospitalization in November, we had extensive discussions about the best approach and both Neurosurgery and Vascular Surgery were involved making decisions on how t o move forward. It was ultimately decided that the meningioma would be left alone. Although it had some very mild enlargement over time compared to the studies, we ultimately understood from another stay where she was followed. In any case, that problem has been relatively stable. History of con gestive heart failure. Mitral regurgitation. SOCIAL HISTORY: She consumed alcohol fairly consistently until 1990. She is a former smoker. FAMILY HISTORY: Noncontributory for any specific neurologic disease. ALLERGIES: None. CURRENT MEDICATIONS: Includes Tylenol as needed, Coreg, dexamethasone 4 mg IV q.6 hours, Aricept 10 mg daily, Lasix, hydrocodone as needed, mirtazapine at night, Paxil daily, Mirapex, Pravachol, VESI care. Prior hospitalization she was not on any dexamethasone. PHYSICAL EXAMINATION: VITAL SIGNS: Blood pressure 153/84, pulse 68, respirations 16, temperature 3 6.4. GENERAL: She is a well-developed woman in no acute distress. EYES: Clear. NECK: Supple wi th no bruits or masses. CARDIAC: Regular rate and rhythm. No murmur. EXTREMITIES: No cyanosis o r edema. She has a well-healed scar on the left. Endarterectomy and fresh incision on the right wh ich is healing well. NEUROLOGIC: The patient is sleepy, as I was just waking her up this morning, but she began to wake up and then would drift back to sleep intermittently. She is able to open her eyes and start to communicate some but has some verbal expression difficulties, not completely this similar to what I witnessed last month although that had improved some. For example, she is able t o answer some of my questions but occasionally perseverates where I have to repeat myself or she use s paraphasic words for some expressions. She will repeat consistently. She lacks a little bit of i nsight on exactly what happened but she knows that she has had the left and then the right carotid e ndarterectomy. She is oriented to person, place, and time. Her general fund of knowledge is reduce d. Concentration and attention are decreased currently. She does not express any hallucinations or delusions. Pupils are 3 mm and reactive. Visual chopra are full. Extraocular movements are intac t. Normal facial sensation with the mild right lower facial weakness. Palate elevates symmetricall y. Tongue protrudes midline. Hearing is preserved. No weakness of head turning or shoulder shrug. The motor examination reveals a generally normal muscle bulk and tone for age. She has some mild proximal weakness in all the extremities but is weaker on the right side than the left, which has be en the baseline I have previously seen. Sensation is preserved for temperature and light touch thro ughout the extremities. Reflexes 1 to 2+. No pathologic reflexes. LABORATORY STUDIES: I have reviewed all the laboratory studies which reveal mild anemia[place] [id number]. Her INR is normal. Chemistries unremarkable except glucose a little elevated this morn ing at 185. Urinalysis is unremarkable except for a slight amount of blood. In the brain MRI scan, she has evidence of an acute very small ischemic infarction in the deep right frontal lobe. She stark s a very large left hemisphere meningioma which is well-known in the frontal temporal region with up to a cm of [id number] shift, which again this is not a new phenomenon. IMPRESSION: The patient has had successful right carotid endarterectomy 3 days ago. She has a very small acute infarction in the right middle cerebral artery territory which is less than a cm in siz e. She has had some slight mentation changes but worsening of her aphasia, but that seems to be sta ble and is not very far off her baseline. The mild deficits of right lower facial weakness as well as right hemiparesis and generalized proximal weakness are not significantly different than last wed. I would say that the language impairment is a little bit worse than when she had left the [facility] before. This may not have anything to do with the small stroke. Just being sedated and in edita very may account for some of the change, so I expect this all to improve again. We had previous ext ensive discussions about the meningioma and the fact that it obviously can contribute to right-sided dysfunction, not only the weakness but the language disturbance. However, it was felt that the ris ks of surgery outweigh the benefits, so we are monitoring this only. It isn't clear that she really needs to be on continuous doses of Decadron, so I am going to decrease that now to 4 q.12 and kareen r quickly get her off that, since it is not planned to be a long-term drug for her and there is no i ndication for steroids in the setting of stroke. She is already on statin therapy. It is safe for her to be on anti-platelet therapy. I will have her restart aspirin. /[id number]/MODL
[2017-01-04] MEDS: CARVEDILOL 6.25 MG TAB PO SCH ×2 (10:07→20:06)
[2017-01-04] MEDS: ASPIRIN EC 81 MG TAB PO SCH (10:08)
[2017-01-04] MEDS: POTASSIUM CL 10 MEQ TAB PO SCH (10:08)
[2017-01-04] MEDS: DEXAMETHASONE 4 MG TAB PO SCH ×2 (10:08→20:06)
[2017-01-04] MEDS: FUROSEMIDE 20 MG TAB PO SCH (10:09)
[2017-01-04] MEDS: SOLIFENACIN SUCCINATE 5 MG TAB PO SCH (10:10)
[2017-01-04] MEDS: POLYETHYLENE GLYCOL 3350 17 GM PKT PO SCH (10:10)
--- NOTE | 2017-01-04 10:15 | SOAPPROG ---
SOAP Progress Note Assessment/Plan: Assessment/Plan: 86 Y F s/p R CEA, POD#3. Appreciate neurology input. New acute tiny infarct on MRI. No vasogenic edema seen around meningioma. Steroids being tapered quickly. Confusion and word finding difficulties more likely to be related to age, surgery, anesthesia. D/w' ed Dr. Matta. Rogelio available prn but would try to avoid. Dispo: possibly home to [facility] with assistance tomorrow pending course. D/w'ed daughter and patient. S: Very tired this morning but woke up and cooperating with swallow study. No complaints. O: alert, nad inc cdi, moderate swelling, no bruits. tongue midline, pupils equal and round, slight lower lip droop--stable. ctab anteriorly rrr abd soft ext [email or web address]. 01/04/17 10:11 Objective: Vital Signs Temp Pulse Resp BP Pulse Ox 36.3 C 67 16 153/94 H 99 01/04/17 08:00 01/04/17 08:00 01/04/17 08:00 01/04/17 08:00 01/04/17 08:00 Laboratory Results 01/03/17 04:28 01/03/17 04:28 01/03/17 01/04/17 01/05/17 05:59 05:59 05:59 Intake Total 700 Output Total 500 Balance 200 ICD10 Worksheet Patient Problems: Problems Problem Status Onset Carotid artery stenosis Acute Meningioma Acute
[2017-01-04] MEDS: PRAVASTATIN SODIUM 40 MG TAB PO SCH (20:05)
[2017-01-04] MEDS: PRAMIPEXOLE 0.125 MG TAB PO SCH (20:05)
[2017-01-04] MEDS: DONEPEZIL HCL 5 MG TAB PO SCH (20:05)
[2017-01-04] MEDS: MIRTAZAPINE 15 MG TAB PO SCH (20:06)
--- NOTE | 2017-01-04 21:38 | SOAPPROG ---
SOAP Progress Note Assessment/Plan: Assessment: alert/ doing well sp rt CEA/ neuro intact/ wound ok/ afebrile Plan:med-surg transfer 01/02/17 07:49 01/03/17 20:13 DEVELOPED SOME NEW APHASIA TODAY DESPITE OTHERWISE STABLE NEURO EXAM/ MRI SHOWS SMALL 4MM RT LOBE INFARCT/ HAVE GIVEN DECADRON/ NEUROLOGY TO SEE IN AM 01/04/17 21:37 Much improved tonight with no obvious neurologic symptoms or asymmetry except for chronic right facial droop. Home tomorrow Objective: Vital Signs Temp Pulse Resp BP Pulse Ox 36.6 C 88 16 117/67 94 01/04/17 15:39 01/04/17 20:06 01/04/17 15:39 01/04/17 20:06 01/04/17 15:39 Laboratory Results 01/03/17 04:28 01/03/17 04:28 01/03/17 01/04/17 01/05/17 05:59 05:59 05:59 Intake Total 700 600 Output Total 500 400 Balance 200 200 ICD10 Worksheet Patient Problems: Problems Problem Status Onset Carotid artery stenosis Acute Meningioma Acute
[2017-01-05 08:00] VITALS: BP 134/80; PULSE 86; RESP 17; TEMP 98.4; O2SAT 94
[2017-01-05] MEDS: SOLIFENACIN SUCCINATE 5 MG TAB PO SCH (08:27)
[2017-01-05] MEDS: ASPIRIN EC 81 MG TAB PO SCH (08:27)
[2017-01-05] MEDS: POTASSIUM CL 10 MEQ TAB PO SCH (08:28)
[2017-01-05] MEDS: FUROSEMIDE 20 MG TAB PO SCH (08:29)
[2017-01-05] MEDS: DEXAMETHASONE 4 MG TAB PO SCH (08:29)
[2017-01-05] MEDS: CARVEDILOL 6.25 MG TAB PO SCH (08:30)
--- NOTE | 2017-01-05 10:03 | SOAPPROG ---
SOAP Progress Note Assessment/Plan: Assessment/Plan: 86 Y F s/p R CEA, POD#4. No major changes overnight. Patient speaking appropriately with me and denies aphasia. Chronic facial droop stable. Steroids d/c'ed. Ok to go back to assisted living today. Appreciate neuro input. Dispo: to [facility] with RN, PT, OT. S: No complaints. Says she is talking fine. O: alert, nad inc cdi, moderate swelling, no bruits. tongue midline, pupils equal and round, slight lower lip droop--stable. ctab anteriorly rrr abd soft ext [email or web address]. 01/05/17 10:00 Objective: Vital Signs Temp Pulse Resp BP Pulse Ox 36.9 C 86 17 134/80 H 94 01/05/17 07:54 01/05/17 07:54 01/05/17 07:54 01/05/17 07:54 01/05/17 07:54 Laboratory Results 01/03/17 04:28 01/03/17 04:28 01/04/17 01/05/17 01/06/17 05:59 05:59 05:59 Intake Total 700 900 Output Total 500 400 Balance 200 500 ICD10 Worksheet Patient Problems: Problems Problem Status Onset Carotid artery stenosis Acute Meningioma Acute
--- NOTE | 2017-01-05 10:07 | PDIAF ---
- Diagnosis Diagnosis: s/p R CEA Code Status: Full Code - Medication Management Discharge Medications: Medications to Continue on Transfer Acetaminophen [Tylenol ES 500 mg (*)] 1,000 mg PO Q8H PRN 11/25/16 [Last Taken 12/31/16] Clopidogrel Bisulfate [Plavix (*)] 75 mg PO DAILY 11/25/16 [Last Taken 12/31/16] Cyanocobalamin/FA/Pyridoxine [FOLBEE TABLET] 1 each PO DAILY 11/25/16 [Last Taken Unknown] Mirtazapine [Remeron] 15 mg PO HS 11/25/16 [Last Taken 12/31/16] Pramipexole Di-HCl [Mirapex 0.125 mg (*)] 0.125 mg PO HS 11/25/16 [Last Taken ] Pravastatin Sodium [Pravachol] 80 mg PO HS 11/25/16 [Last Taken 12/31/16] Solifenacin Succinate [Vesicare] 10 mg PO DAILY 11/25/16 [Last Taken 01/01/17] Herbals/Supplements -Info Only 1 ea PO DAILY 11/27/16 [Last Taken 12/31/16] Potassium Chloride [Klor-Con 10] 10 meq PO DAILY #0 tablet.er 12/03/16 [Last Taken 12/31/16] Carvedilol [Coreg (*)] 6.25 mg PO BIDMEAL 01/01/17 [Last Taken 01/01/17] Donepezil HCl [Aricept 5 MG (*)] 10 mg PO HS 01/01/17 [Last Taken 12/31/16] Furosemide [Lasix 40 MG (*)] 40 mg PO DAILY 01/01/17 [Last Taken 12/31/16] PARoxetine HCL [Paxil 30mg (*)] 30 mg PO DAILY 01/01/17 [Last Taken 01/01/17] Acetaminophen [Tylenol 325mg (*)] 325 - 650 mg PO Q4HRS PRN #0 tab 01/05/17 [ Last Taken Unknown] Aspirin EC [Aspirin EC 81 mg (*)] 81 mg PO DAILY #0 tab 01/05/17 [Last Taken Unknown] Donepezil HCl [Aricept 5 MG (*)] 10 mg PO HS #0 tab 01/05/17 [Last Taken Unknown ] Discharge Medications: Refer to the Discharge Home Medication list for PRN reason. PICC Care - Routine: N/A - Orders Services needed: Home Care, Registered Nurse, Physical Therapy, Occupational Therapy Home Care Face to Face: I certify that this patient was under my care and that I had the required [id number] encounter meeting the encounter requirements on the discharge day. My findings support the fact that the patient is homebound as defined in CMS Chapter 7 Medicare Benefits Manual 30.1.1, The condition of the patient is such that there exists a normal inability to leave home and consequently, leaving home would require a considerable and taxing effort. Diet Recommendation: no restrictions on diet Diet Texture: Regular Texture Diet Park: Not applicable Wound Care Instructions: leave steris on until they fall off Activity/Weight Bearing Restrictions: No lifting greater an 15 lbs. Ok to shower. Avoid submerging wounds under water (ie. baths, pools) for two weeks from surgery. - Follow Up Care Current Providers and Referrals: Yang Matta MD [Medical Doctor] - follow up in 1 week Papa Guerra MD [Primary Care Provider] - follow up in 1 week
[2017-01-05] MEDS: POLYETHYLENE GLYCOL 3350 17 GM PKT PO SCH (10:19)
== END 2017-01-05 11:53 | disposition home health service (06) | DRG 37 ==
LOC: F3N 05:31 → F2N 10:37 → F2W 01-02 15:36
PROVIDERS: ADMIT Surgery; ATTEND Surgery
PROC: 03CH0ZZ Extirpation of Matter from Right Common Carotid Artery, Open Approach (ICD-10-PCS; principal; 2017-01-01 07:15)
PROC: 4A10X4G Monitoring of Central Nervous Electrical Activity, Intraoperative, External Approach (ICD-10-PCS; principal; 2017-01-01 07:15)
PROC: 07B10ZX Excision of Right Neck Lymphatic, Open Approach, Diagnostic (ICD-10-PCS; principal; 2017-01-01 07:15)
DX: I65.21 Occlusion and stenosis of right carotid artery (principal); I63.511 Cerebral infarction due to unspecified occlusion or stenosis of right middle cerebral artery; R47.01 Aphasia; I95.81 Postprocedural hypotension; E87.6 Hypokalemia; D62 Acute posthemorrhagic anemia; I11.0 Hypertensive heart disease with heart failure; I50.30 Unspecified diastolic (congestive) heart failure; I34.0 Nonrheumatic mitral (valve) insufficiency; D32.0 Benign neoplasm of cerebral meninges
CPT/HCPCS: 92610-GN; 97116-GP; 97161-GP; C1768; G8978-GP-CJ; G8979-GP-CI; G8980-GP-CI; G8996-GN-CI; G8997-GN-CH; J0690; J1100; J1644; J2001; J2250; J2370; J2405; J2704; J2720; J3010; P9041

== ENCOUNTER 2017-02-28 18:21 | Emergency (ER) | payer OTHER, MEDICARE ==
[2017-02-28 18:37] VITALS: RESP 16
--- NOTE | 2017-02-28 18:56 | EDPHY ---
H & P Stated Complaint: food stuck in throat Source: Patient - Personal History Current Tetanus/Diphtheria Vaccine: Unsure Current Tetanus Diphtheria and Acellular Pertussis (TDAP): Unsure - Medical/Surgical History Hx Asthma: No Hx Chronic Respiratory Disease: No Hx Diabetes: No Hx Cardiac Disease: Yes Hx Renal Disease: No Hx Cirrhosis: No Hx Alcoholism: Yes Hx HIV/AIDS: No Hx Splenectomy or Spleen Trauma: No Other PMH: overreactive bladder, anxiety, cerebral infarction, carotid artery stenosis, osteaoarthritis, cerebral neoplasm, hyperlipidemia, hypokalemia, dementia, depression, restless leg syndrome, HTN, heart failure, cervical disc d /o, osteoporosis, - Social History Smoking Status: Former smoker Time Seen by Provider: 02/28/17 18:30 HPI/ROS: CHIEF COMPLAINT: The unable to swallow HISTORY OF PRESENT ILLNESS: This is an 86-year-old female presenting to the emergency department via EMS. Patient states she was at the lunch all at her half-way facility eating dinner around 1700 when she felt like a food product got stuck. Since then she has not been able to swallow water or swallow saliva. Patient denies any vomiting or nausea. History of right carotid artery surgery, CVA REVIEW OF SYSTEMS: Constitutional: No fever, no chills. Eyes: No discharge. ENT: Difficulty swallowing Cardiovascular: No chest pain, no palpitations. Respiratory: No cough, no shortness of breath. Gastrointestinal: No abdominal pain, no vomiting. Musculoskeletal: No back pain. Skin: No rashes. Neurological: No headache. (Terra Neves) - Physical Exam Exam: General Appearance: Alert, no distress. Appears uncomfortable. Stable at this time Eyes: Pupils equal and round no pallor or injection. ENT, Mouth: Mucous membranes moist. Difficulty swallowing saliva or fluids. Oropharynx normal no foreign body visualized Respiratory: There are no retractions, lungs are clear to auscultation. Maintaining own airway Cardiovascular: Regular rate and rhythm. Gastrointestinal: Abdomen is soft and nontender, no masses, bowel sounds normal. Neurological: No focal deficits Skin: Warm and dry, no rashes. Musculoskeletal: Neck is supple nontender. Extremities: symmetrical, full range of motion. Psychiatric: Patient is oriented X 3, there is no agitation. (Terra Neves) Constitutional: Initial Vital Signs Temperature (C) 36.9 C 02/28/17 18:21 Heart Rate 79 02/28/17 18:21 Respiratory Rate 16 02/28/17 18:21 Blood Pressure 193/87 H 02/28/17 18:21 O2 Sat (%) 94 02/28/17 18:21 O2 Delivery Mode Room Air Allergies/Adverse Reactions: No Known Allergies Allergy (Unverified 11/25/16 16:49) Home Medications: Medication Instructions Recorded Acetaminophen [Tylenol ES 500 mg 1,000 mg PO Q8H PRN 11/25/16 (*)] Clopidogrel Bisulfate [Plavix (*)] 75 mg PO DAILY 11/25/16 Cyanocobalamin/Folic AC/Vit B6 1 each PO DAILY 11/25/16 [FOLBEE TABLET] Mirtazapine [Remeron] 15 mg PO HS 11/25/16 Pramipexole Di-HCl [Mirapex 0.125 0.125 mg PO HS 11/25/16 mg (*)] Pravastatin Sodium [Pravachol] 80 mg PO HS 11/25/16 Solifenacin Succinate [Vesicare] 10 mg PO DAILY 11/25/16 Herbals/Supplements -Info Only 1 ea PO DAILY 11/27/16 Potassium Chloride [Klor-Con 10] 10 meq PO DAILY #0 tablet.er 12/03/16 Carvedilol [Coreg (*)] 6.25 mg PO BIDMEAL 01/01/17 Donepezil HCl [Aricept 5 MG (*)] 10 mg PO HS 01/01/17 Furosemide [Lasix 40 MG (*)] 40 mg PO DAILY 01/01/17 PARoxetine HCL [Paxil 30mg (*)] 30 mg PO DAILY 01/01/17 Acetaminophen [Tylenol 325mg (*)] 325 - 650 mg PO Q4HRS PRN #0 tab 01/05/17 Aspirin EC [Aspirin EC 81 mg (*)] 81 mg PO DAILY #0 tab 01/05/17 Donepezil HCl [Aricept 5 MG (*)] 10 mg PO HS #0 tab 01/05/17 Medical Decision Making ED Course/Re-evaluation: I also saw this patient while she was in the emergency department. I reviewed the history that the patient was eating a piece of roast beef. It did not seem to go all the way down. Since that time this afternoon she has been unable to swallow secretions and is spitting up her saliva. She has discomfort behind the sternum. No trouble breathing or speaking. Exam shows a normal oropharynx. Breath sounds are equal. Abdomen is soft. She continues to spit up saliva and has some hiccups I agree that the patient likely has retained esophageal foreign body. Nurse practitioner and I discussed calling GI and having the patient go to endoscopy for foreign body removal (Tyrone Simon) 1849: Spoke with Dr. De La Torre patient to go for endoscopy to rule out any esophageal foreign body. I discussed this with patient she agrees with plan 1929: Discussed with Dr. De La Torre, patient swallowed what ever foreign body was possibly retained. Patient is speaking and swallowing fluids without difficulty. Patient stable, able to be discharged home. 1999: Patient is AAox3, not in any distress no dysphagia tolerating fluid intake without difficulty speaking in full sentences. Discussed discharge instructions with patient. discharge home---> stable. (Terra Neves) Differential Diagnosis: Other differential diagnosis considered but not limited to the esophageal foreign body, CVA, and AMS (Terra Neves) - Data Points Laboratory Results: Laboratory Results 02/28/17 18:00 02/28/17 18:00 02/28/17 02/28/17 02/28/17 18:00 18:00 18:00 WBC 9.41 10^3/uL 10^3/uL (3.80-9.50) RBC 4.15 10^6/uL L 10^6/uL (4.18-5.33) Hgb 12.4 g/dL L g/dL (12.6-16.3) Hct 38.0 % % (38.0-47.0) MCV 91.6 fL fL (81.5-99.8) MCH 29.9 pg pg (27.9-34.1) MCHC 32.6 g/dL g/dL (32.4-36.7) RDW 13.8 % % (11.5-15.2) Plt Count 352 10^3/uL 10^3/uL (150-400) MPV 11.4 fL fL (8.7-11.7) Neut % (Auto) 54.6 % % (39.3-74.2) Lymph % (Auto) 28.9 % % (15.0-45.0) Roberts % (Auto) 11.3 % % (4.5-13.0) Eos % (Auto) 3.8 % % (0.6-7.6) Baso % (Auto) 1.0 % % (0.3-1.7) Nucleat RBC Rel Count 0.0 % % (0.0-0.2) Absolute Neuts (auto) 5.14 10^3/uL 10^3/uL (1.70-6.50) Absolute Lymphs (auto) 2.72 10^3/uL 10^3/uL (1.00-3.00) Absolute Monos (auto) 1.06 10^3/uL H 10^3/uL (0.30-0.80) Absolute Eos (auto) 0.36 10^3/uL 10^3/uL (0.03-0.40) Absolute Basos (auto) 0.09 10^3/uL 10^3/uL (0.02-0.10) Absolute Nucleated RBC 0.00 10^3/uL 10^3/uL (0-0.01) Immature Gran % 0.4 % % (0.0-1.1) Immature Gran # 0.04 10^3/uL 10^3/uL (0.00-0.10) PT 13.6 SEC SEC (12.0-15.0) INR 1.05 (0.83-1.16) APTT 38.1 SEC H SEC (23.0-38.0) Sodium 135 mEq/L mEq/L (134-144) Potassium 3.9 mEq/L mEq/L (3.5-5.2) Chloride 101 mEq/L mEq/L (97-110) Carbon Dioxide 25 mEq/l mEq/l (22-31) Anion Gap 9 mEq/L mEq/L (8-16) BUN 19 mg/dL mg/dL (7-23) Creatinine 0.9 mg/dL mg/dL (0.6-1.0) Estimated GFR 60 Glucose 111 mg/dL H mg/dL (70-100) Calcium 9.9 mg/dL mg/dL (8.5-10.4) Departure - Departure Disposition: Home, Routine, Self-Care Clinical Impression: Other dysphagia, Feeling of foreign body in throat Condition: Good Instructions: Foreign Body in Pharynx (ED) Additional Instructions: Discussed discharge instructions: 1. Please make sure you cut your food in small pieces take you time chewing and swallowing 2. I would recommend no large pieces of any for any kind of meat 3. Follow up with your primary care provider next week Referrals: Patient,NotPresent [Unknown] - As per Instructions [facility],. [Clinic] - As per Instructions
[2017-02-28 19:18] LABS: % IMMATURE GRANULYOCYTES 0.4 % (0.0-1.1); ABSOLUTE IMMATURE GRANULOCYTES 0.04 10^3/uL (0.00-0.10); ADD DIFF? NO; ADD MORPH? NO; ADD SCAN? NO; ATYPICAL LYMPHOCYTE FLAG 0 (0-99); FRAGMENT RBC FLAG 0 (0-99); HEMOGLOBIN 12.4 g/dL (12.6-16.3); LEFT SHIFT FLG 0 (0-99); LIPEMIA HEMOLYSIS FLAG 80 (0-99); MEAN CELL HEMOGLOBIN 29.9 pg (27.9-34.1); MEAN CELL HEMOGLOBIN CONCENTR. 32.6 g/dL (32.4-36.7); MEAN CELL VOLUME 91.6 fL (81.5-99.8); MEAN PLATELET VOLUME 11.4 fL (8.7-11.7); PLATELET CLUMPS FLAG 20 (0-99); PLATELET COUNT 352 10^3/uL (150-400); RED BLOOD CELL COUNT 4.15 10^6/uL (4.18-5.33); RED CELL DISTRIBUTION WIDTH 13.8 % (11.5-15.2)
[2017-02-28 19:24] LABS: ANION GAP 9 mEq/L (8-16); CALCIUM 9.9 mg/dL (8.5-10.4); CARBON DIOXIDE 25 mEq/l (22-31); CHLORIDE 101 mEq/L (97-110); CREATININE 0.9 mg/dL (0.6-1.0); GLOMERULAR FILTRATION RATE 60; GLUCOSE 111 mg/dL (70-100); INR 1.05 (0.83-1.16); POTASSIUM 3.9 mEq/L (3.5-5.2); PROTIME(PATIENT) 13.6 SEC (12.0-15.0); SODIUM 135 mEq/L (134-144)
[2017-02-28 19:25] LABS: APTT 38.1 SEC (23.0-38.0)
--- NOTE | 2017-02-28 20:15 | GCON ---
[f rep st] CONSULTATION CHIEF COMPLAINT: An 86-year-old woman with dysphagia. HISTORY OF PRESENT ILLNESS: This is a very pleasant 86-year-old woman, who presented to the emergen cy department through EMS. She had been at her custodial facility and had eaten a meal and felt as though food was stuck. She recalls eating a large piece of beef. She was unable to swallow her saliva or swallow water. She had no nausea or vomiting. She has had no previous problems with dys phagia or history of heartburn. She has had a history of a CVA and a right carotid endarterectomy. She presented to the emergency department with complaint of unable to swallow. PAST MEDICAL HISTORY: Remarkable for anxiety, history of CVA, carotid artery stenosis, osteoarthrit is, hyperlipidemia, hypokalemia, dementia, depression, restless legs syndrome, hypertension, heart f ailure, cervical disk disease, osteoporosis, cerebral neoplasm. MEDICATIONS: Prior to admission included acetaminophen, Plavix, Remeron, Mirapex, Pravachol, VESIca re, potassium chloride, Coreg, Aricept, Lasix, Paxil, Tylenol, aspirin. ALLERGIES: She has no known drug allergies. FAMILY HISTORY: Negative as it pertains to HPI. SOCIAL HISTORY: She is a prior smoker. Nondrinker. REVIEW OF SYSTEMS: Negative for 10 systems, other than mentioned in HPI. PHYSICAL EXAMINATION: VITAL SIGNS: 193/87, pulse ox 94%, respiratory rate 16, heart rate 79, 37.9. GENERAL: A very pleasant woman, in no acute distress. HEENT: Normocephalic, atraumatic. EOMI. NECK: Supple. No cervical adenopathy. No thyromegaly. LUNGS: Clear. CARDIAC: Normal S1, S2 w ithout murmur. ABDOMEN: Soft, benign. No hepatosplenomegaly. Normal bowel sounds. EXTREMITIES: Without clubbing, cyanosis, edema. NEURO: Nonfocal. She does have a mild droop on the right face and nasolabial fold. Patient is alert. Normal affect. SKIN: Warm, dry, and intact. LABORATORY DATA: Hemoglobin 12.4, hematocrit 38, platelets of 352. White count 9.41. Chemistries: Serum sodium 135, potassium 3.9, chloride 101, CO2 25, BUN of 19, creatinine 0.9, blood sugar 111. ASSESSMENT: An 86-year-old woman with no prior history of GI issues, no problems with dysphagia or reflux disease. The patient had swallowed a large piece of beef with acute food impaction. While i n the emergency department observing her, she felt as though the food had passed. She was no longer having difficulty with secretions. She was given a test cup of water and she was able to swallow w ithout difficulty. IMPRESSION: Acute meat impaction, status post status passage. RECOMMENDATIONS: Patient to be discharged home. She will call with any further problems or delfino jesus. /[id number]/MOD
[2017-02-28 20:50] VITALS: BP 166/74; PULSE 66; TEMP 97.9; O2SAT 96
== END 2017-02-28 20:38 | disposition home or self-care (01) ==
LOC: EDUNIT#
DX: R09.89 Other specified symptoms and signs involving the circulatory and respiratory systems (principal); R13.19 Other dysphagia; I10 Essential (primary) hypertension; Z79.82 Long term (current) use of aspirin; Z87.891 Personal history of nicotine dependence

== ENCOUNTER 2017-05-03 14:18 | Emergency (ER) | payer OTHER, MEDICARE ==
[2017-05-03 14:34] VITALS: TEMP 98.2
[2017-05-03] MEDS ORDERED: ONDANSETRON 4 MG/2 ML VIAL IVP ONE (15:16)
[2017-05-03] MEDS ORDERED: NS 1,000 ML IV ONE (15:16)
--- NOTE | 2017-05-03 15:19 | EDPHY ---
H & P Stated Complaint: DIFFICULTY SWALLOWING, VOMITING STARTING AT 9AM Time Seen by Provider: 05/03/17 15:07 HPI/ROS: CHIEF COMPLAINT: Esophageal foreign body HISTORY OF PRESENT ILLNESS: The patient is an 86-year-old female who is presents with her daughter complaining of trouble swallowing. Her daughter states that she had trouble getting a pill down this morning and then at breakfast vomited when she tried to eat. Since then she has tried to drink several small glasses of water but regurgitates/vomits them. She his handling her secretions. This began around 8 o'clock this morning. Her daughter states that this has happened twice before but in the past she refused upper endoscopy. She has not had a fever. She denies chest pain. She denies shortness of breath. No abdominal pain, nausea or diarrhea. 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 She denies headache or vertigo. REVIEW OF SYSTEMS: Constitutional: denies: chills, fever, recent illness, recent injury EENTM: denies: blurred vision, double vision, nose congestion Respiratory: denies: cough, shortness of breath Cardiac: denies: chest pain, irregular heart rate, lightheadedness, palpitations Gastrointestinal/Abdominal: See HPI denies: abdominal pain, diarrhea, nausea, blood streaked stools Genitourinary: denies: dysuria, frequency, hematuria, pain Musculoskeletal: denies: joint pain, muscle pain Skin: denies: lesions, rash, jaundice, bruising Neurological: denies: headache, numbness, paresthesia, tingling, dizziness, weakness Hematologic/Lymphatic: denies: blood clots, easy bleeding, easy bruising Immunologic/allergic: denies: HIV/AIDS, transplant EXAM: GENERAL: Well-appearing, well-nourished and in no acute distress. HEAD: Atraumatic, normocephalic. EYES: Pupils equal round and reactive to light, extraocular movements intact, sclera anicteric, conjunctiva are normal. ENT: TMs normal, nares patent, oropharynx clear without exudates. Moist mucous membranes. NECK: Normal range of motion, supple without lymphadenopathy or JVD. LUNGS: Breath sounds clear to auscultation bilaterally and equal. No wheezes rales or rhonchi. HEART: Regular rate and rhythm without murmurs, rubs or gallops. ABDOMEN: Soft, nontender, normoactive bowel sounds. No guarding, no rebound. No masses appreciated. BACK: No CVA tenderness, no spinal tenderness, step-offs or deformities EXTREMITIES: Normal range of motion, no pitting or edema. No clubbing or cyanosis. NEUROLOGICAL: Cranial nerves II through XII grossly intact. Normal speech, normal gait. 5/5 strength, normal movement in all extremities, normal sensation PSYCH: Difficulty answering questions due to expressive aphasia SKIN: Warm, dry, normal turgor, no visible rashes or lesions. Source: Patient Exam Limitations: No limitations - Personal History Current Tetanus Diphtheria and Acellular Pertussis (TDAP): Yes - Medical/Surgical History Hx Asthma: No Hx Chronic Respiratory Disease: No Hx Diabetes: No Hx Cardiac Disease: Yes Hx Renal Disease: No Hx Cirrhosis: No Hx Alcoholism: Yes Hx HIV/AIDS: No Hx Splenectomy or Spleen Trauma: No Other PMH: overreactive bladder, anxiety, cerebral infarction, carotid artery stenosis, osteaoarthritis, cerebral neoplasm, hyperlipidemia, hypokalemia, dementia, depression, restless leg syndrome, HTN, heart failure, cervical disc d /o, osteoporosis, CVA 2016 - Family History Significant Family History: No pertinent family hx - Social History Smoking Status: Former smoker Alcohol Use: Sober Drug Use: None Constitutional: Initial Vital Signs Temperature (C) 36.8 C 05/03/17 14:32 Heart Rate 74 05/03/17 14:32 Respiratory Rate 18 05/03/17 14:32 Blood Pressure 152/92 H 05/03/17 14:32 O2 Sat (%) 92 05/03/17 14:32 O2 Delivery Mode Room Air Allergies/Adverse Reactions: No Known Allergies Allergy (Unverified 11/25/16 16:49) Home Medications: Medication Instructions Recorded Acetaminophen [Tylenol ES 500 mg 1,000 mg PO Q8H PRN 11/25/16 (*)] Clopidogrel Bisulfate [Plavix (*)] 75 mg PO DAILY 11/25/16 Cyanocobalamin/Folic AC/Vit B6 1 each PO DAILY 11/25/16 [FOLBEE TABLET] Mirtazapine [Remeron] 15 mg PO HS 11/25/16 Pramipexole Di-HCl [Mirapex 0.125 0.125 mg PO HS 11/25/16 mg (*)] Pravastatin Sodium [Pravachol] 80 mg PO HS 11/25/16 Solifenacin Succinate [Vesicare] 10 mg PO DAILY 11/25/16 Herbals/Supplements -Info Only 1 ea PO DAILY 11/27/16 Potassium Chloride [Klor-Con 10] 10 meq PO DAILY #0 tablet.er 12/03/16 Carvedilol [Coreg (*)] 6.25 mg PO BIDMEAL 01/01/17 Donepezil HCl [Aricept 5 MG (*)] 10 mg PO HS 01/01/17 Furosemide [Lasix 40 MG (*)] 40 mg PO DAILY 01/01/17 PARoxetine HCL [Paxil 30mg (*)] 30 mg PO DAILY 01/01/17 Acetaminophen [Tylenol 325mg (*)] 325 - 650 mg PO Q4HRS PRN #0 tab 01/05/17 Aspirin EC [Aspirin EC 81 mg (*)] 81 mg PO DAILY #0 tab 01/05/17 Donepezil HCl [Aricept 5 MG (*)] 10 mg PO HS #0 tab 01/05/17 Medical Decision Making ED Course/Re-evaluation: The patient has done well and is now tolerating p.o.. She is asymptomatic. We will discharge her to follow up with Gastroenterology. Daughter agrees with this plan. Differential Diagnosis: Partial list of the Differential diagnosis considered include but were not limited to; esophageal obstruction, abrasion and although unlikely based on the history and physical exam, I also considered perforation, acute coronary disease. I discussed these differential diagnoses and the plan with the patient as well as the usual and expected course. The patient understands that the diagnosis is provisional and that in medicine we are not always correct and that further workup is often warranted. Usual and customary warnings were given. All of the patient's questions were answered. The patient was instructed to return to the emergency department should the symptoms at all worsen or return, otherwise to followup with the physician as we discussed. - Data Points Medications Given: Discontinued Medications Sodium Chloride (Ns) 1,000 mls @ 0 mls/hr IV EDNOW ONE; Wide Open PRN Reason: Protocol Stop: 05/03/17 15:17 Last Admin: 05/03/17 15:26 Dose: 1,000 mls Ondansetron HCl (Zofran) 4 mg IVP EDNOW ONE Stop: 05/03/17 15:17 Last Admin: 05/03/17 15:26 Dose: 4 mg Departure - Departure Disposition: Home, Routine, Self-Care Clinical Impression: Esophageal foreign body Qualifiers: Encounter type: initial encounter Qualified Code(s): T18.108A - Unspecified foreign body in esophagus causing other injury, initial encounter Condition: Fair Instructions: Esophageal Foreign Body (ED) Referrals: Papa Guerra MD [Primary Care Provider] - As per Instructions Alonso Luu MD [Medical Doctor] - As per Instructions
[2017-05-03 17:05] VITALS: BP 145/85; PULSE 79; RESP 16; O2SAT 95
== END 2017-05-03 17:04 | disposition home or self-care (01) ==
DX: T18.108A Unspecified foreign body in esophagus causing other injury, initial encounter (principal); I11.0 Hypertensive heart disease with heart failure; I50.9 Heart failure, unspecified; E86.9 Volume depletion, unspecified; Z87.891 Personal history of nicotine dependence; Z79.82 Long term (current) use of aspirin; X58.XXXA Exposure to other specified factors, initial encounter
CPT/HCPCS: 96361; 96374; 99284; J2405

== ENCOUNTER → 2017-06-18 | Outpatient (CLI) | payer OTHER, MEDICARE | LOC: FIMAGING 09:32 | PROVIDERS: ATTEND Internal Medicine Gastroenterology | DX: R13.10 Dysphagia, unspecified (principal) ==

== ENCOUNTER 2017-09-04 18:35 | Inpatient (IN) | payer OTHER, MEDICARE ==
--- NOTE | 2017-09-04 19:18 | EDPHY ---
H & P Time Seen by Provider: 09/04/17 18:55 HPI/ROS: CHIEF COMPLAINT: Difficulty with speech HISTORY OF PRESENT ILLNESS: 86-year-old woman has a history of ischemic stroke with previous carotid arterectomy and a large left meningioma. In December of this year she had word-finding difficulties and in 1 episode she received dexamethasone and got better and was felt to be a result of edema from her meningioma. On another 1 and she was found to have had a small acute MCA cerebral ischemic infarction. The patient was last known to be normal at 7:00 p.m. last night when 1 of her daughters was with her and she had normal speech. She does have some baseline a facies a but at 4:30 p.m. today she called her other daughter and was clearly speaking "gibberish "with difficulty forming words and sentences inner a facial was much worse than normal. In the ER she states that she has some trouble speaking but otherwise no complaints. No headache. No weakness or numbness in extremities. REVIEW OF SYSTEMS: Eye: no change in vision ENT: no sore throat Cardiac: no chest pain or syncope Pulmonary: no cough or SOB Abdomen: no vomiting, diarrhea, abdominal pain Musculoskeletal: Chronic knee pain right greater than left Skin: no rash Neuro: no headache Constitutional: no fever : Increased urination about every hour and a half this past week on Wednesday A comprehensive 10 point review of systems is otherwise negative aside from elements mentioned in the history of present illness. PAST MEDICAL HISTORY: Ischemic stroke, carotid endarterectomy, meningioma, congestive heart failure, mitral regurgitation. Social history: Here with 2 daughters, no alcohol General Appearance: Alert, cooperative. Eyes: No scleral icterus. Pupils equal round reactive extraocular motion intact and no nystagmus. ENT, Mouth: Normal mucous membranes. Respiratory: Normal respiratory effort, breath sounds equal, lungs are clear to auscultation. Cardiovascular: Regular rate and rhythm. 1 of 6 murmur. Gastrointestinal: Abdomen is soft and non tender. Neurological: Alert and follows commands. Has likely expressive aphasia as she is clearly frustrated with her inability to form coherent words and sentences. Says some coherent words and then some nonsense syllables. Only able to make 2 or 3 word sentences occasionally. Face symmetric, normal movement and sensation in all extremities. Skin: Warm and dry, no rashes. Musculoskeletal: No peripheral edema and no joint swelling. Patient has normal range of motion of the right knee without effusion or bony tenderness. No calf tenderness. Psychiatric: Unable due to difficulty with speech. Emergency Department course/MDM: Patient is not made a stroke alert since her last known normal was 24 hours ago at 7:00 p.m. last night. Plan for UA, EKG, labs to include electrolytes, noncontrast head CT. Will consult with associated neurologist as she sees Evgeny King. Imaging studies reviewed with 1 of the 2 daughters on the computer system. 1946; discussed with Terry. 1956 discussed with Cory neurosurgery, recommends IV dexamethasone 10 mg and then 6 mg IV q.6 hours. 2019: per Evan no large vessel occlusion intracranial, tumor is larger with vasogenic edema. No indication for Activase or interventional radiology for stroke at this time. 2101: Urinalysis not suggestive of infection. Smoking Status: Former smoker Constitutional: Initial Vital Signs Temperature (C) 37.1 C 09/04/17 18:40 Heart Rate 52 L 09/04/17 18:40 Respiratory Rate 18 09/04/17 18:40 Blood Pressure 157/58 H 09/04/17 18:40 O2 Sat (%) 95 09/04/17 18:40 O2 Delivery Mode Room Air Allergies/Adverse Reactions: No Known Allergies Allergy (Verified 09/04/17 20:50) Home Medications: Medication Instructions Recorded Acetaminophen [Tylenol ES 500 mg 1,000 mg PO BID 11/25/16 (*)] Clopidogrel Bisulfate [Plavix (*)] 75 mg PO DAILY 11/25/16 Mirtazapine [Remeron] 15 mg PO HS 11/25/16 Pramipexole Di-HCl [Mirapex 0.125 0.125 mg PO HS 11/25/16 mg (*)] Solifenacin Succinate [Vesicare] 10 mg PO DAILY 11/25/16 Herbals/Supplements -Info Only 1 ea PO DAILY 11/27/16 Potassium Chloride [Klor-Con 10] 10 meq PO DAILY #0 tablet.er 12/03/16 Carvedilol [Coreg (*)] 6.25 mg PO BIDMEAL 01/01/17 Donepezil HCl [Aricept 5 MG (*)] 10 mg PO HS 01/01/17 Furosemide [Lasix 40 MG (*)] 40 mg PO DAILY 01/01/17 Donepezil HCl [Aricept 5 MG (*)] 10 mg PO HS #0 tab 01/05/17 Acetaminophen [Tylenol ES 500 mg 1,000 mg PO BID PRN 09/04/17 (*)] Cholecalciferol Vit D3 [Vitamin D3 2,000 units PO DAILY 09/04/17 (*)] Herbals/Supplements -Info Only 1 tab PO DAILY 09/04/17 PARoxetine HCL [Paxil 20mg (*)] 20 mg PO DAILY 09/04/17 Polyethylene Glycol 3350 [Miralax 17 gm PO DAILY 09/04/17 17 gm (*)] Medical Decision Making - Diagnostics EKG Interpretation: 12-lead EKG interpreted by me; official reading is in trace master. My interpretation is sinus rhythm rate 57 with atypical right bundle branch block. LVH. Imaging Results: Imaging Impressions Head CT 09/04/17 19:14 Impression: Enlarging left frontotemporal extraaxial mass compatible with enlarging meningioma, with progressive mass effect, vasogenic edema, and subfalcine herniation left toward right. Cosigned: Dr. Alonso Delgado. Results discussed with Dr. Dirk Kim. Differential Diagnosis: Differential considered including but not limited to intracranial bleed, ischemic stroke, intracranial mass, seizure, metabolic abnormality. Consult/Admit Bed Type: [place] [address] Critical Care Time: Critical care time spent by me, Dr. Kim, exclusively with the care of this patient was 35 minutes, exclusive of PA or SHADE MATCHER time and exclusive of separate procedures. The organ system at risk was neurologic and I ordered consultation with radiologist and Neurology and neurosurgeon, intravenous dexamethasone, multiple diagnostic studies to stabilize the patient and prevent worsening of the patient's condition. - Data Points Laboratory Results: Laboratory Results 09/04/17 19:20 09/04/17 19:20 09/04/17 09/04/17 19:20 19:20 WBC 9.58 10^3/uL H 10^3/uL (3.80-9.50) RBC 3.52 10^6/uL L 10^6/uL (4.18-5.33) Hgb 11.3 g/dL L g/dL (12.6-16.3) Hct 33.2 % L % (38.0-47.0) MCV 94.3 fL fL (81.5-99.8) MCH 32.1 pg pg (27.9-34.1) MCHC 34.0 g/dL g/dL (32.4-36.7) RDW 13.2 % % (11.5-15.2) Plt Count 303 10^3/uL 10^3/uL (150-400) MPV 10.5 fL fL (8.7-11.7) Neut % (Auto) 64.7 % % (39.3-74.2) Lymph % (Auto) 23.0 % % (15.0-45.0) [place] % (Auto) 9.6 % % (4.5-13.0) Eos % (Auto) 1.7 % % (0.6-7.6) Baso % (Auto) 0.6 % % (0.3-1.7) Nucleat RBC Rel Count 0.0 % % (0.0-0.2) Absolute Neuts (auto) 6.20 10^3/uL 10^3/uL (1.70-6.50) Absolute Lymphs (auto) 2.20 10^3/uL 10^3/uL (1.00-3.00) Absolute Monos (auto) 0.92 10^3/uL H 10^3/uL (0.30-0.80) Absolute Eos (auto) 0.16 10^3/uL 10^3/uL (0.03-0.40) Absolute Basos (auto) 0.06 10^3/uL 10^3/uL (0.02-0.10) Absolute Nucleated RBC 0.00 10^3/uL 10^3/uL (0-0.01) Immature Gran % 0.4 % % (0.0-1.1) Immature Gran # 0.04 10^3/uL 10^3/uL (0.00-0.10) Sodium 132 mEq/L L mEq/L (134-144) Potassium 4.5 mEq/L mEq/L (3.5-5.2) Chloride 98 mEq/L mEq/L (97-110) Carbon Dioxide 23 mEq/l mEq/l (22-31) Anion Gap 11 mEq/L mEq/L (8-16) BUN 19 mg/dL mg/dL (7-23) Creatinine 1.0 mg/dL mg/dL (0.6-1.0) Estimated GFR 53 Glucose 106 mg/dL H mg/dL (70-100) Calcium 9.5 mg/dL mg/dL (8.5-10.4) Troponin I 0.023 ng/mL ng/mL (0.000-0.034) Medications Given: Discontinued Medications Dexamethasone (Decadron Injection) 10 mg IVP EDNOW ONE Stop: 09/04/17 20:00 Last Admin: 09/04/17 20:07 Dose: 10 mg Departure - Departure Disposition: [facility] Inpatient Acute Clinical Impression: Expressive aphasia, Meningioma Condition: Serious
--- NOTE | 2017-09-04 19:27 | CPEKG ---
Heart Rate: 57 RR Interval: 1053 P-R Interval: 156 QRSD Interval: 140 QT Interval: 508 QTC Interval: 495 P [place]: 43 QRS [place]: -39 T Wave [place]: 34 EKG Severity - ABNORMAL ECG - EKG Impression: SINUS RHYTHM EKG Impression: IVCD, CONSIDER ATYPICAL RBBB EKG Impression: LVH WITH IVCD AND SECONDARY REPOL ABNRM Electronically Signed By: Dirk Kim 04-Sep-2017 19:33:33
[2017-09-04 19:35] LABS: % IMMATURE GRANULYOCYTES 0.4 % (0.0-1.1); ABSOLUTE IMMATURE GRANULOCYTES 0.04 10^3/uL (0.00-0.10); ADD DIFF? NO; ADD MORPH? NO; ADD SCAN? NO; ATYPICAL LYMPHOCYTE FLAG 0 (0-99); FRAGMENT RBC FLAG 0 (0-99); HEMATOCRIT 33.2 % (38.0-47.0); HEMOGLOBIN 11.3 g/dL (12.6-16.3); LEFT SHIFT FLG 0 (0-99); LIPEMIA HEMOLYSIS FLAG 90 (0-99); MEAN CELL HEMOGLOBIN 32.1 pg (27.9-34.1); MEAN CELL VOLUME 94.3 fL (81.5-99.8); MEAN PLATELET VOLUME 10.5 fL (8.7-11.7); PLATELET CLUMPS FLAG 10 (0-99); PLATELET COUNT 303 10^3/uL (150-400); RED BLOOD CELL COUNT 3.52 10^6/uL (4.18-5.33); RED CELL DISTRIBUTION WIDTH 13.2 % (11.5-15.2)
[2017-09-04] MEDS ORDERED: IOPAMIDOL (ISOVUE-300) 100 ML BTL ONE (19:46)
[2017-09-04 19:48] LABS: ANION GAP 11 mEq/L (8-16); CALCIUM 9.5 mg/dL (8.5-10.4); CARBON DIOXIDE 23 mEq/l (22-31); CHLORIDE 98 mEq/L (97-110); GLOMERULAR FILTRATION RATE 53; GLUCOSE 106 mg/dL (70-100); POTASSIUM 4.5 mEq/L (3.5-5.2); SODIUM 132 mEq/L (134-144)
[2017-09-04 19:59] LABS: TROPONIN I 0.023 ng/mL (0.000-0.034)
[2017-09-04] MEDS ORDERED: DEXAMETHASONE 10 MG/ML VIAL IVP ONE (19:59)
[2017-09-04 20:43] LABS: COLOR LT. YELLOW; LEUKOCYTE ESTERASE,URINE TRACE (NEGATIVE); NITRITE,URINE NEGATIVE (NEGATIVE)
[2017-09-04 20:55] LABS: RBC,URINE NONE SEEN /hpf (0-3)
[2017-09-04] MEDS ORDERED: ONDANSETRON 4 MG/2 ML VIAL IVP PRN (21:00)
[2017-09-04] MEDS ORDERED: ONDANSETRON DISINTEGRATING 4 MG TAB PO PRN (21:00)
[2017-09-04] MEDS ORDERED: ACETAMINOPHEN 325 MG TAB PO PRN (21:00)
--- NOTE | 2017-09-04 23:05 | GHP ---
[f rep st] HISTORY AND PHYSICAL DATE OF ADMISSION: 09/04/2017 CHIEF COMPLAINT: Acute on chronic aphasia. HISTORY OF PRESENT ILLNESS: This is an 86-year-old female with history of CVA x2, chronic aphasia, large left meningioma, presenting with acute aphasia. Daughter was at bedside with patient. They said they spoke with her yesterday at approximately 7 p.m. and she was in her normal state of health. When they spoke to her today at 4:30, she was not making sense and having jumbled words. Staffing at [facility] also confirmed that she was not talking like she normally does. The patient denies fevers, chills, or sweats. No nausea, vomiting, diarrhea. Complained of burning with dysuria. Complains of knee pain. Did complain of left leg weakness. REVIEW OF SYSTEMS: I completed a 10-point review of system, negative except as noted in History of Present Illness. PAST MEDICAL HISTORY: 1. History of left-sided meningioma. 2. Aphasia. 3. Carotid stenosis status post bilateral CEA. 4. CVA x2. 5. Systolic heart failure. 6. Restless leg syndrome. 7. Depression. 8. Diastolic dysfunction. 9. Mitral regurgitation. PAST SURGICAL HISTORY: CEA x2. Cataract surgery. Plastic surgery. ALLERGIES: No known drug allergies. SOCIAL HISTORY: Lives independently at [facility]. Uses a walker. No alcohol or tobacco. HOME MEDICATIONS: Aricept 5 mg 10 mg at bedtime, Tylenol p.r.n., Coreg 6.25 mg twice daily, Tylenol as needed, MiraLAX as needed, Remeron 50 mg at bedtime, Lasix 40 mg daily, herbal supplement, Plavix 75 mg daily, vitamin D3, VESIcare, Mirapex, Klor-Con 10 mEq daily, Paxil 20 mg daily. PHYSICAL EXAMINATION: VITAL SIGNS: Temperature 36.3, blood pressure 154/75, heart rate 62, respiration 15, 94% on room air. GENERAL: Well appearing, lying in bed, no acute distress. HEENT: PERRLA. EOMI. Oropharynx clear. CV : Regular rate and rhythm. No murmurs, gallops, rubs. LUNGS: Clear to auscultation bilaterally. ABDOMEN: Soft, nontender, nondistended. Positive bowel sounds. : Left-sided suprapubic tenderness. MUSCULOSKELETAL: 5/5 upper extremity strength. Decreased strength on the left hip flexion. NEURO: 2 through 12 intact. Normal sensation to touch. She is able to spell world backwards. Able to state the days of the week backward. Per daughter, she is making more sense. PSYCH: Alert and oriented x3. LABS: WBCs 9, hemoglobin 13, hematocrit 33, platelets 303. Sodium 132, potassium 4.5, chloride 98, carbon dioxide 23, creatinine 1, glucose 106. Troponin 0.02. UA: Trace leukocyte esterase. Head CT personally reviewed by me. Enlarging left frontotemporal extra mass compatible with enlarging meningioma. EKG personally reviewed by me. LVH. Echocardiogram October 2016: Moderate MR. Negative stress test in November 2016. ASSESSMENT AND PLAN: 1. Acute on chronic aphasia: Differential includes acute stroke or enlarging meningioma.Dr. Kim discussed case with both Dr. Stewart and Dr. Ray. Recommend IV dexamethasone, which she has had in the past with improvement of symptoms. UA is negative. No intervention for tPA at this time. Patient will be monitored on telemetry, serial neuro checks. PT, OT, speech evaluation. Neurology to consult in the morning. 2. Depression: Continue home medication. 3. History of stroke: Plan as above. Continue Plavix. 4. Compensated diastolic heart failure: Continue Coreg and Lasix. 5. Diet: Cardiac if passes swallow. 6. Deep venous thrombosis prophylaxis: SCDs. Patient warrants inpatient admission given the acute on chronic aphasia, concern for enlarging meningioma versus CVA. Requires IV steroids, neuro checks and consultation. /[id number]/MODL MTDD
[2017-09-05] MEDS: DEXAMETHASONE 4 MG/ML VIAL IVP SCH ×3 (00:07→12:16)
[2017-09-05 05:27] LABS: CHOLESTEROL 157 mg/dL (140-220); CHOLESTEROL/HDL RATIO 2.34 RATIO (1.00-4.44); HIGH DENSITY LIPOPROTEIN 67 mg/dL (40-85); LDL/HDL RATIO 1.22 RATIO (1.00-3.22); LOW DENSITY LIPOPROTEIN 82 mg/dL (80-100); NON-HIGH DENSITY LIPOPROTEIN 90 mg/dL (90-129); TRIGLYCERIDE 42 mg/dL (35-135); VERY LOW DENSITY LIPOPROTEINS 8 mg/dL (8-25)
--- NOTE | 2017-09-05 05:49 | PDMN ---
Medical Necessity Medical necessity: C/M review: est. > 2 MN LOS for eval and TX of acute on chronic aphasia concerning for enlarging meningioma versus CVA requiring planned Neurology consult, Rehab eval consult, ongoing IV steroids, neuro checks , acute inpt PT/OT/ST, comorbid hx left sided large meningioma, CVA x 2, systolic heart failure, depression, diastolic dysfunction, mitral regurgitation , carotid stenosis S/P bilateral CEA per H/P.
[2017-09-05 07:59] VITALS: O2SAT 96
[2017-09-05] MEDS ORDERED: CARVEDILOL 6.25 MG TAB PO SCH (08:00)
--- NOTE | 2017-09-05 08:31 | GCON ---
[f rep st] CONSULTATION DATE OF CONSULTATION: 09/05/2017 REASON FOR CONSULTATION: Speech changes with known left frontal mass. HOSPITAL COURSE/HISTORY OF MAJOR MEDICAL FINDINGS: The patient is an 86-year-old female, who was bro ught to the emergency room by her family yesterday for worsening aphasia. She does have a known hist ory of a left frontal meningioma, and her family had noticed today her speech was much worse than it was the day prior. She does have an extensive cardiac history including strokes x2. This morning, s he does answer only yes or no questions and family was not at bedside this morning. She does live at [facility] who stated that the patient was in worse state of cognition and speech yesterday. The patie nt does want to get up and walk. She is sitting at the edge of the bed this morning. REVIEW OF SYSTEMS: Unable to fully complete review of systems. The patient denies having any pain. PAST MEDICAL HISTORY: Significant for a left-sided meningioma, history of some aphasia and history o f carotid stenosis status post bilateral carotid endarterectomies. History of CVAs x2, history of sy stolic heart failure, restless legs syndrome, depression, diastolic dysfunction and mitral valve regu rgitation. PAST SURGICAL HISTORY: Significant for cataract surgery and carotid endarterectomies. There is also some known history of plastic surgery. ALLERGIES: No known drug allergies. HOME MEDICATIONS: Aricept 5 mg q.a.m. and 10 mg at night, Tylenol as needed, Coreg 6.25 mg 1 p.o. tw ice daily, Tylenol p.r.n. pain or fever, MiraLAX p.r.n. constipation, Remeron 50 mg 1 p.o. at bedtime , Lasix 40 mg 1 p.o. daily, an herbal supplement, Plavix 150 mg 1 p.o. daily, vitamin D3, VESIcare, M irapex, Klor-Con 10 mEq daily and Paxil 20 mg daily. SOCIAL HISTORY: Patient lives at [facility]. She does use a walker to ambulate at baseline and does no t use any alcohol, illicit drugs, or tobacco. PHYSICAL EXAMINATION: VITALS: BP is 176/78, heart rate is 85, respiratory rate is 18. She is 96% o n room air. Temp is 36.3. GENERAL: The patient is in no acute distress. She is alert, appropriate , and follows commands. She answers yes and no questions. There does appear to be an element of con fusion with some of the questions asked. NEUROLOGIC: Cranial nerves 2-12 are grossly intact. EOMI and PERRLA. The patient is a 5/5 and equal in her bilateral upper and bilateral lower extremities, i ncluding her deltoids, triceps, biceps, wrist flexors, extensors, interossei, intrinsic sports analyst. DIAGNOSTIC REVIEW: Patient underwent a head CT upon coming into the emergency room which demonstrate d an enlarging left frontotemporal extra-axial mass, likely consistent with an enlarging meningioma. There is increased mass effect with vasogenic edema and some herniation with left to right shift. ASSESSMENT/PLAN: The patient is an 86-year-old female, who was brought to the emergency room with wo rsening aphasia. She does appear to both have receptive and expressive aphasia this morning. Also, there is possibly an element of some confusion going on as well this morning. The patient does have evidence of enlarging left frontal meningioma. This was discussed in detail with chayo Martin ho will be seeing the patient today. We have ordered an MRI to further evaluate this lesion. She wa s also placed on Decadron to help with the vasogenic edema. PT, OT and speech therapy. Will have further recommendations after the MRI has resulted. /[id number]/MODL
[2017-09-05] MEDS ORDERED: POLYETHYLENE GLYCOL 3350 17 GM PKT PO SCH (09:00)
[2017-09-05] MEDS ORDERED: POTASSIUM CL 10 MEQ TAB PO SCH (09:00)
[2017-09-05] MEDS ORDERED: PARoxetine HCL 20 MG TAB PO SCH (09:00)
[2017-09-05] MEDS ORDERED: CLOPIDOGREL BISULFATE 75 MG TAB PO SCH (09:00)
[2017-09-05] MEDS ORDERED: Herbals/Supplements -Info Only PO SCH (09:00)
[2017-09-05] MEDS ORDERED: levETIRAcetam 500 MG in NS 100 ML IV SCH (09:00)
[2017-09-05] MEDS ORDERED: CHOLECALCIFEROL VIT D3 1,000 UNITS TAB PO SCH (09:00)
[2017-09-05] MEDS ORDERED: FUROSEMIDE 40 MG TAB PO SCH (09:00)
[2017-09-05] MEDS ORDERED: SOLIFENACIN SUCCINATE 5 MG TAB PO SCH (09:00)
--- NOTE | 2017-09-05 09:56 | ASMTCMCOM ---
CM Note CM Note Notes: Chart reviewed. Patient admitted though ED with S&S of stroke. Therapies pending. Needs to be determined. Date Signed: 09/05/2017 09:55 AM Electronically Signed By:Adrianna Ocasio RN
[2017-09-05 11:06] VITALS: BP 170/116; PULSE 83; RESP 16; TEMP 98.2
--- NOTE | 2017-09-05 11:40 | HOSPPROG ---
Hospitalist Progress Note Assessment/Plan: 86 y/o female new to my care 09/05 presenting with: #expressive aphasia likely due to enlarging meningioma -nsurg consult reviewed. Daughter tells me that patient has been clear that she does not wish to pursue surgical intervention -MRI brain and neurology consult pending -continue decadron #H/O CVA #Compensated D-HF dispo: continue inpatient care. May benefit from palliative care eval once MRI and neurology consult are done Subjective: continues to have diffculty finding words Objective: Vital Signs Temp Pulse Resp BP Pulse Ox 36.8 C 83 16 170/116 H 96 09/05/17 11:05 09/05/17 11:05 09/05/17 11:05 09/05/17 11:05 09/05/17 11:05 09/04/17 09/05/17 09/06/17 05:59 05:59 05:59 Intake Total 240 Output Total 500 Balance -[address] reviewed H&P reviewed - Physical Exam Constitutional: no apparent distress, appears nourished, not in pain Cardiovascular: regular rate and rhythym, no murmur, rub, or gallop Respiratory: no respiratory distress, no rales or rhonchi, clear to auscultation Neurologic: CN II-XII Intact, other (word salad speech), No weakness, No numbness, No facial droop ICD10 Worksheet Patient Problems: Problems Problem Status Onset Carotid artery stenosis Acute Meningioma Acute Expressive aphasia Acute
--- NOTE | 2017-09-05 12:52 | GDS ---
[f rep st] DISCHARGE SUMMARY DISCHARGE DIAGNOSES: 1. Enlarging meningioma causing expressive aphasia. 2. History of cerebrovascular accident. 3. Compensated diastolic heart failure. CONSULTANTS: 1. Neurosurgery, Mary Webster, MAURICE. 2. Alonso Stewart DO, neurology. HOSPITAL COURSE AND STAY BY PROBLEM: Expressive aphasia: The patient was admitted to the hospital w ith worsening [id number] expressive aphasia and word salad. She was seen by Neurosurgery who r ecommended MRI. On hospital day #1, the patient was seen by Neurology, who recommended that she be d ischarged on a prednisone taper as well as Keppra. After a long discussion with the patient's family , they were very clear that they would not want to pursue any surgical intervention; hence, MRI that was ordered by Neurosurgery was canceled. PHYSICAL EXAM ON DISCHARGE: Please refer to progress note in [facility]. LAB AND STUDIES DONE THIS HOSPITAL STAY: Head CT done 09/04/2017, refer to report. DISCHARGE MEDICATIONS: Please refer to discharge medication reconciliation [facility] for details. DISCHARGE INSTRUCTIONS: The patient will be discharged from the hospital on a prednisone taper as we ll as [place]. Her overall prognosis is poor. Would recommend outpatient palliative care evaluation. TIME SPENT: Greater than 30 minutes were spent on the discharge of this patient. /[id number]/MODL
--- NOTE | 2017-09-05 13:10 | ASMTCMCOM ---
CM Note CM Note Notes: OK to dc per neurology and hospital medicine. Spoke with Meredith at [facility] to alert them of dc. Daughter who is a physician will warehouse order picker new prescriptions. Med list faxed to [facility]. IM form signed. CM available if other needs arise. Date Signed: 09/05/2017 01:09 PM Electronically Signed By:Adrianna Ocasio RN
--- NOTE | 2017-09-05 13:57 | ASDISCHSUM ---
Discharge Information Plan Status:Assisted Living Medically Cleared to Leave:09/04/2017 Discharge Date:09/05/2017 01:18 PM CM D/C Disposition:Assisted Living ADT D/C Disposition:Assisted Facility Projected Discharge Date:09/05/2017 01:18 PM Transportation at D/C:Family Discharge Delay Reason: Follow-Up Date:09/05/2017 01:18 PM Discharge Slot: Final Diagnosis: Placement Information Patient Contact Information Contact Name:EDWIN Relationship:Daughter Address: Work Phone: City:[place] Alternate Phone: [facility] Code:ANGI Email: Financial Information Financial Class: Primary Plan Desc:MEDICARE INPATIENT Primary Plan Number:[id number] Secondary Plan Desc:[employer]/MDR SUPPLEMENT Secondary Plan Number:[id number] Assessment Information LACE LACE Length of stay for Answers: 1 day current admission Acuity / Level of Care Answers: Was the patient admitted to hospital via the emergency department? Yes: Comorbidities - select Answers: Cerebrovascular disease all that apply Congestive heart failure Emergency dept visits in Answers: 1 last 6 months Score: 8 Date Signed: 09/05/2017 09:37 AM Electronically Signed By:Adrianna Ocasio RN [facility] CM Progress Note CM Note CM Note Notes: Chart reviewed. Patient admitted though ED with S&S of stroke. Therapies pending. Needs to be determined. Date Signed: 09/05/2017 09:55 AM Electronically Signed By:Adrianna Ocasio RN [facility] CM Progress Note CM Note CM Note Notes: OK to dc per neurology and [facility] medicine. Spoke with Meredith at [facility] to alert them of dc. Daughter who is a physician will flower picker new prescriptions. Med list faxed to [facility]. IM form signed. CM available if other needs arise. Date Signed: 09/05/2017 01:09 PM Electronically Signed By:Adrianna Ocasio RN Intervention Information
--- NOTE | 2017-09-05 14:28 | NEUROPROG ---
Assessment: [id number] CC: Aphasia HPI: Pt with history of CVA x 2 (2016, left sided MCA stroke causing residual right sided mild weakness), chronic aphasia (per daughter since a left CEA in December 2016), and large left meningioma admitted 09/04/17 for worsening aphasia. Pt was noted in her normal state of health at 7 pm on 09/03/17 but daughter noted the next day her aphasia seemed worse so patient brought [facility] and admitted. Not a TPA candidate as last known normal > 6 hours ago. Pt had a large meningioma so neurosurgery was consulted who ordered a brain MRI and started decadron for vasogenic edema. I initially saw the patient on 09/05/17. Pt was with her two daughter (one of the daughter was an OBGYN). They reported the patient had a known large left frontal meningioma that had been growing for years and was previously followed by a neurosurgeon in [place], [place]. Pt had decided against surgery and accepted risk of or disability from the meningioma. She was not interested in further w/u for her aphasia but just wanted to try medications that were reasonably safe and may improve her symptoms. She declined a brain MRI. I recommended trying decadron followed by a 5 day prednisone taper as well as keppra 500 mg bid. She will f/u with me in the clinic in 1-2 weeks. PMHx: left sided meningioma, b/l CEA, CVA x 2, heart failure, RLS, depression Home Meds: aricept, tylenol, coreg, remeron, lasix, plavix, vesicare, mirapex, KCl, paxil SHx: [facility] FHx: daughter alive ROS: Pt denied acute fever, total vision loss, active severe chest pain, respiratory failure, total body severe rash, total bowel/bladder incontinence, psychosis, active seizures, or active bleeding O: VS reviewed General: Alert Eyes: Fundoscopic exam not able to visualize optic disks CV: Heart RRR, no murmur, no carotid bruit Lungs: Clear to auscultation bilaterally, no rhonci or rales Neuro: - Mental: . Oriented x person/place but not date . concentration appears normal . speech fluency/comprehension reduced with expressive and receptive aphasia that was moderate . memory difficult to test due to aphasia . fund of knowledge appear intact - Cranial Nerves: . II: PERRL, VFFTC . III/IV/: EOMI, no nystagmus, normal smooth pursuits, no Ptosis . V: facial sensation intact to LT . VII: face symmetric to eye closure and smile . VIII: hearing intact to conversation . IX/X: uvula raises symmetrically . XI: SCM 5/5 B/L strength . XII: tongue protrudes midline w/nl strength - Motor: . Tone: normal tone in all 4 extrem . Strength: no pronator drift, strength 5/5 throughout (B/L delt, bic, tri, hand locomotive mechanic, hf/he, df/pf) but pt feels her right arm/leg are slightly weaker than the left side - Reflexes: B/L BR 2/4 - Sensory: all 4 extrem intact to light touch - Coord: [id number] wnl - Gait: deferred Labs: Rads: 09/04/17- Head CT: enlarging left frontotemporal extraaxial mass compatible with enlarging meningioma, with progressive mass effect, vasogenic edema, and subfalcine herniation. (I personally visualized the images on 09/05/17) Assessment: 1. Acute on Chronic Aphasia: Pt with large meningioma, history of multiple strokes, and vascular dementia so possible causes of worsening aphasia are mass effect from meningioma, new stroke, recurrence of old stroke symptoms (aphasia) , seizure/post-ictal aphasia, or progression of vascular dementia. I would favor mass effect from tumor as the most likely cause of her worsening symptoms. Pt was with her two daughter (one of the daughter was an OBGYN). They reported the patient had a known large left frontal meningioma that had been growing for years and was previously followed by a neurosurgeon in [place], [place]. Pt had decided against surgery and accepted risk of or disability from the meningioma. She was not interested in further w/u for her aphasia but just wanted to try medications that were reasonably safe and may improve her symptoms. She declined a brain MRI. I recommended trying decadron followed by a 5 day prednisone taper as well as keppra 500 mg bid. She will f/ u with me in the clinic in 1-2 weeks. 2. CVA x 2 3. Meningioma 4. Vascular Dementia Plan: - Brain MRI declined by patient - Agree with plavix for stroke prevention - Agree with decadron for vasogenic edema followed by 5 day prednisone taper - Appreciate neurosurgery consult, pt declined surgery - Trial of Keppra 500 mg bid in case these are focal seizures causing aphasia - F/U in 2 weeks in neurology clinic, consider increasing aricept at f/u visit Objective: Vital Signs Temp Pulse Resp BP Pulse Ox 36.8 C 83 16 170/116 H 96 09/05/17 11:05 09/05/17 11:05 09/05/17 11:05 09/05/17 11:05 09/05/17 11:05 09/04/17 09/05/17 09/06/17 05:59 05:59 05:59 Intake Total 240 Output Total 500 Balance -500 240 Allergies/Adverse Reactions: No Known Allergies Allergy (Verified 09/04/17 20:50)
[2017-09-05] MEDS ORDERED: PRAMIPEXOLE 0.125 MG TAB PO SCH (21:00)
[2017-09-05] MEDS ORDERED: DONEPEZIL HCL 5 MG TAB PO SCH (21:00)
[2017-09-05] MEDS ORDERED: MIRTAZAPINE 15 MG TAB PO SCH (21:00)
== END 2017-09-05 13:18 | DRG 54 ==
LOC: F3N 21:29
PROVIDERS: ADMIT Internal Medicine; ATTEND Internal Medicine
DX: D32.0 Benign neoplasm of cerebral meninges (principal); G93.5 Compression of brain; G93.6 Cerebral edema; R47.01 Aphasia; I50.30 Unspecified diastolic (congestive) heart failure; G25.81 Restless legs syndrome; I34.0 Nonrheumatic mitral (valve) insufficiency; F32.9 Major depressive disorder, single episode, unspecified; Z86.73 Personal history of transient ischemic attack (TIA), and cerebral infarction without residual deficits
CPT/HCPCS: 96374; 97162-GP; G8978-GP-CI; G8981-GP-CI; J1100; J1953; Q9967